=== PATIENT | female | born 1955 | race Caucasian/White ===

== ENCOUNTER 2020-04-25 12:12 | Outpatient (REF) | payer MEDICARE, SELFPAY ==
--- NOTE | ~2020-04-25 | MM_ITS ---
EXAMINATION: MM SCREENING DIGITAL BREAST TOMOSYNTHESIS, BILATERAL CLINICAL INFORMATION: Screening. Asymptomatic. The lifetime risk of breast cancer based on the Tyrer-Cuzick Model is 4%. COMPARISON: Mammography: 08/17/2018, 10/03/2015; outside imaging from [facility]: mammography 04/16/2017, targeted right breast ultrasound 04/16/2017. TECHNIQUE: Digital breast tomosynthesis is performed in both the craniocaudal and mediolateral oblique views along with computer-aided detection (CAD). Synthesized 2D images are generated from the tomosynthesis. FINDINGS: There are scattered areas of fibroglandular density (ACR BI-RADS breast composition Category b). There are no significant masses, abnormal calcifications, or other abnormalities. Parenchymal pattern is similar to prior studies. The axilla and skin contours are unremarkable. MM/MM tomosynthesis screening BI IMPRESSION: No significant changes from prior exams. ASSESSMENT: BI-RADS 1: Negative RECOMMENDATION: Routine annual mammography screening. This patient's information was entered into a reminder system with a target due date for their next mammogram.
== END 2020-04-25 12:13 | disposition home or self-care (01) ==
LOC: HO.MAMMO 12:12
PROVIDERS: Absent Provider Obstetrics & Gynecology; PCP Internal Medicine; Visit Provider Internal Medicine
DX: Z12.31 Encounter for screening mammogram for malignant neoplasm of breast (principal)
CPT/HCPCS: 77063; 77067

== ENCOUNTER 2020-10-05 06:09 | Outpatient (REF) | payer MEDICARE, OTHER, SELFPAY ==
[2020-10-05 07:52] LABS: MANUAL DIFF FLAG NO
[2020-10-05 08:00] LABS: Basophils Absolute Auto 0.1 X10*3/uL (0.0-0.2); Basophils Percent Auto 0.5 % (0-2); Eosinophils Absolute Auto 0.2 X10*3/uL (0.0-0.4); Eosinophils Percent Auto 1.6 % (0-4); Hematocrit 48.2 % (37-47); Hemoglobin 15.3 g/dl (12.0-16.0); Imm Gran Abs Auto 0.06 X10*3/uL (0.00-0.03); Imm Gran Pct Auto 0.5 % (0.0-0.4); Lymphocytes Absolute Auto 2.6 X10*3/uL (1.2-4.9); Lymphocytes Percent Auto 22.4 % (20-40); Mean Corpuscular HGB Conc 31.7 g/dl (31.0-35.0); Mean Corpuscular Hemoglobin 28.3 pg (27.0-33.0); Mean Corpuscular Volume 89.3 fL (80-98); Mean Platelet Volume 11.2 fL (9.4-12.3); Monocytes Absolute Auto 0.9 X10*3/uL (0.1-1.2); Monocytes Percent Auto 7.4 % (2-11); Neutrophils Absolute Auto 7.8 X10*3/uL (2.0-8.3); Neutrophils Percent Auto 67.6 % (45-73); Platelet Count 322 X10*3/uL (160-400); Red Cell Distribution Width 13.6 % (11.0-16.0); White Blood Count 11.6 X10*3/uL (4.8-10.8)
[2020-10-05 08:19] LABS: Estimated Average Glucose 183 mg/dL
[2020-10-05 08:32] LABS: Creatinine Urine 149.75 mg/dL; Microalbum/Creatinine Ratio Ur 30.7 ug/mg cr
[2020-10-05 08:34] LABS: Alanine Aminotransferase 63 U/L (0-31); Albumin Level 3.9 g/dL (3.5-5.0); Alkaline Phosphatase 104 U/L (39-117); Anion Gap 15 (12-20); Aspartate Amino Transferase 53 U/L (5-31); Bilirubin Total 0.4 mg/dL (0.0-1.0); Blood Urea Nitrogen 11 mg/dL (9-16); Calcium 9.6 mg/dL (8.4-10.2); Carbon Dioxide 29 mmol/L (22-29); Chloride 100 mmol/L (96-108); Cholesterol 132 mg/dL; Estimated Glomerular Filt Rate > 60; Glucose Fasting 140 mg/dL (60-99); HDL Cholesterol 26 mg/dL; LDL Cholesterol Calculated 78 mg/dl; Potassium 4.7 mmol/L (3.3-5.1); Sodium 139 mmol/L (135-145); Total Protein 7.5 g/dL (6.5-8.0); Triglycerides 142 mg/dL
[2020-10-05 08:58] LABS: Thyroid Stimulating Hormone 3.03 uIU/mL (0.32-4.0)
== END 2020-10-05 06:10 | disposition home or self-care (01) ==
LOC: HO.LAB 06:09
PROVIDERS: PCP Internal Medicine; Visit Provider Internal Medicine
DX: I10 Essential (primary) hypertension (principal); E78.00 Pure hypercholesterolemia, unspecified; K21.9 Gastro-esophageal reflux disease without esophagitis; R73.03 Prediabetes
CPT/HCPCS: 36415; 80053; 80061; 82043; 83036; 84443; 85025

== ENCOUNTER 2020-11-19 10:13 | Outpatient (REF) | payer MEDICARE, OTHER, SELFPAY ==
[2020-11-19 14:45] LABS: Estimated Average Glucose 154 mg/dL
[2020-11-19 15:03] LABS: Anion Gap 18 (12-20); Blood Urea Nitrogen 14 mg/dL (9-16); Calcium 9.5 mg/dL (8.4-10.2); Carbon Dioxide 21 mmol/L (22-29); Chloride 104 mmol/L (96-108); Estimated Glomerular Filt Rate > 60; Glucose Random 92 mg/dL (60-115); Potassium 4.7 mmol/L (3.3-5.1); Sodium 138 mmol/L (135-145)
== END 2020-11-19 10:14 | disposition home or self-care (01) ==
LOC: HO.10HDL 10:13
PROVIDERS: Visit Provider Internal Medicine
DX: E11.9 Type 2 diabetes mellitus without complications (principal)
CPT/HCPCS: 36415; 80048; 83036

== ENCOUNTER 2021-05-16 13:47 | Outpatient (REF) | payer MEDICARE, OTHER, SELFPAY ==
--- NOTE | ~2021-05-16 | MM_ITS ---
EXAMINATION: MM SCREENING DIGITAL BREAST TOMOSYNTHESIS, BILATERAL CLINICAL INFORMATION: Screening. Asymptomatic. The lifetime risk of breast cancer based on the Tyrer-Cuzick Model is 4%. COMPARISON: Mammography: 04/25/2020, 08/17/2018, 04/16/2017 TECHNIQUE: Digital breast tomosynthesis is performed in both the craniocaudal and mediolateral oblique views along with computer-aided detection (CAD). Synthesized 2D images are generated from the tomosynthesis. FINDINGS: There are scattered areas of fibroglandular density (ACR BI-RADS breast composition Category b). Parenchymal pattern is similar to prior studies. There are scattered minor asymmetries similar to prior exam. There is no developing density or interval architectural changes. No abnormal calcifications. The axilla and skin contours are unremarkable. MM/MM tomosynthesis screening BI IMPRESSION: No mammographic evidence of malignancy. ASSESSMENT: BI-RADS 1: Negative RECOMMENDATION: Routine annual mammography screening. This patient's information was entered into a reminder system with a target due date for their next mammogram.
== END 2021-05-16 13:48 | disposition home or self-care (01) ==
LOC: HO.MAMMO 13:47
PROVIDERS: PCP Obstetrics & Gynecology; Visit Provider Internal Medicine
DX: Z12.31 Encounter for screening mammogram for malignant neoplasm of breast (principal)
CPT/HCPCS: 77063; 77067

== ENCOUNTER 2021-09-09 11:58 | Outpatient (REF) | payer MEDICARE, OTHER, SELFPAY ==
[2021-09-09 12:54] LABS: Influenza A PCR NEGATIVE (Negative); Influenza B PCR NEGATIVE (Negative); Resp Syncy Virus RNA Qual PCR NEGATIVE (Negative); SARS COV2 PCR INHOUSE NEGATIVE (Negative)
== END 2021-09-09 11:59 | disposition home or self-care (01) ==
LOC: HO.LNP 11:58
PROVIDERS: Visit Provider Internal Medicine
DX: Z20.822 Contact with and (suspected) exposure to COVID-19 (principal); R05.9 Cough, unspecified
CPT/HCPCS: 0241U

== ENCOUNTER 2021-09-10 10:02 | Outpatient (REF) | payer MEDICARE, OTHER, SELFPAY ==
--- NOTE | ~2021-09-10 | XR_ITS ---
EXAMINATION: XR CHEST CLINICAL INFORMATION: Cough and hypertension. Rule out bronchiectasis COMPARISON: Previous chest x-ray December [address] April 2019 TECHNIQUE: 2 views of the chest were obtained. FINDINGS: The cardiac and mediastinal contours are stable. The lungs are clear. There is no pleural effusion or pneumothorax. Bony structures are unremarkable. XR/XR chest 2V IMPRESSION: No evidence for acute disease in the chest.
[2021-09-10 10:56] LABS: Estimated Average Glucose 151 mg/dL; Hemoglobin A1c % 6.9 %
[2021-09-10 11:56] LABS: Alanine Aminotransferase 45 U/L (0-31); Albumin Level 3.9 g/dL (3.5-5.0); Alkaline Phosphatase 87 U/L (39-117); Anion Gap 12 (12-20); Aspartate Amino Transferase 36 U/L (5-31); Bilirubin Total 0.2 mg/dL (0.0-1.0); Blood Urea Nitrogen 13 mg/dL (9-16); Calcium 9.3 mg/dL (8.4-10.2); Carbon Dioxide 28 mmol/L (22-29); Chloride 102 mmol/L (96-108); Estimated Glomerular Filt Rate > 60; Glucose Random 162 mg/dL (60-115); Potassium 4.7 mmol/L (3.3-5.1); Sodium 137 mmol/L (135-145); Total Protein 7.3 g/dL (6.5-8.0)
== END 2021-09-10 10:03 | disposition home or self-care (01) ==
LOC: HO.10HDL 10:02
PROVIDERS: Visit Provider Internal Medicine
DX: R05.9 Cough, unspecified (principal); I10 Essential (primary) hypertension; E11.9 Type 2 diabetes mellitus without complications; K21.9 Gastro-esophageal reflux disease without esophagitis
CPT/HCPCS: 36415; 71046; 80053; 83036

== ENCOUNTER 2021-10-29 08:06 | Day surgery (SDC) | payer MEDICARE, OTHER, SELFPAY ==
[2021-09-05 09:08] VITALS: BMI 38.6
[2021-10-29 08:23] VITALS: BP 162/78; PULSE 66; RESP 19; TEMP 36.6; O2SAT 96
[2021-10-29 08:32] LABS: Glucose, Whole Blood 122 mg/dL (60-115)
[2021-10-29] MEDS: Lactated Ringers 1,000 ML 50 ML IVCONT (08:35)
--- NOTE | 2021-10-29 09:03 | HO.ANESPROP2 ---
[facility] Past Medical History Medical History (Updated 10/29/21 @ 08:43 by Dang Evans RN) Blood cholesterol increased compared with prior measurement Diabetes HTN (hypertension) HTN (hypertension) Family History Family history of problems with anesthesia: No Surgical History Surgical History (Updated 10/29/21 @ 08:41 by Dang Evans RN) History of pubovaginal sling Hx of colonoscopy Hx of wisdom tooth extraction History of Problems with Anesthesia: No Social History Social History Patient Tobacco Use Status: Never used Tobacco Are you DNR?: No Advance Directives: No Advance Directives Information Provided: Yes Recently lost weight without trying: No Nutrition Risks: No Nutritional Risk Meds Allergies Allergy/AdvReac Type Severity Reaction Status Date / Time levofloxacin [LEVOFLOXACIN] Allergy Severe DIFFICULTY Verified 10/29/21 06:27 BREATHING Active Medications: Current Medications Lactated Ringer's (Lr) 1,000 mls @ 50 mls/hr IVCONT .Q20H GIULIANO Last Admin: 10/29/21 08:35 Dose: 50 mls/hr Home Medications Medication Instructions Recorded Confirmed Last Taken Type metformin 500 mg tablet,extended 1 tab PO DAILY 10/29/21 10/29/21 10/28/21 History release 24 hr metoprolol succinate 25 mg 1 tab PO DAILY 10/29/21 10/29/21 10/29/21 History tablet,extended release 24 hr omeprazole 20 mg capsule,delayed 1 cap PO DAILY 10/29/21 10/29/21 10/28/21 History release simvastatin 20 mg tablet 1 tab PO BEDTIME 10/29/21 10/29/21 10/28/21 History Exam Exam Date and Time: October 29, 2021 0903 Height,Weight and Vital Signs: Height 5 ft 5 in Weight 105.233 kg Last Vital Signs Temp 98 F 10/29/21 08:23 Pulse 66 10/29/21 08:23 Resp 19 10/29/21 08:23 BP 162/78 H 10/29/21 08:23 Pulse Ox 96 10/29/21 08:23 O2 Del Method 10/29/21 08:23 Pertinent Lab Results Pertinent Lab Results: Laboratory Tests 10/29/21 08:28 POC Glucose 122 H Airway Mallampati Class: III TM Dist: >3cm Neck ROM: Full Assessment and Plan Assessment Anesthesia Assessment: Anesthesia Plan Discussed and Chart Reviewed Final Anesthetic Review Family History of Problems with Anesthesia: No History of Problems with Anesthesia: No NPO: Yes ASA Class: III Final Preanesthetic Review: No Changes in Pt Med Stat, Meds/Allgs Chart Reviewed, Consent Obtained/Reviewed and Anes Risks/Benef Reviewed Patient Risk: Intermediate Procedure Risk: Low Anesthetic Plan Anesthetic Plan: MAC: Disposition: Standard PACU
--- NOTE | 2021-10-29 09:27 | P.HPSUR_ITS ---
Pre-Procedural Eval Section A Date of Service: 10/29/21 Section B Chief Complaint: screening Details of Present Illness: see H&P no changes Relevant Family History (Specify if Yes): No Relevant Social History: None Present Medications: see Short Stay Collaborative assessment Medical History: No relevant PMH History of Previous Operations: No relevant previous surgery Allergies: Allergies Allergy/AdvReac Type Severity Reaction Status Date / Time levofloxacin [LEVOFLOXACIN] Allergy Severe DIFFICULTY Verified 10/29/21 06:27 BREATHING Review of Systems Sugical H&P ROS: Negative: Constitution, Cardiovascular, Respiratory, Neurol ogical, Psychiatric, Hem-Onc, Allergic/Immunologic, Gastrointestinal, Genitourinary, Musculoskeletal, Integumentary, Endocrine and Eyes/Ears/Nose/Throat Exam Surgical H&P Exam: Normal: HEENT, Normal: Heart, Normal: Lungs, Normal: Extremities, Normal: Abdomen, Normal: Skin and Normal: Neurological Plan Diagnosis/Plan: Unchanged I have reviewed the history and physical and performed a pertinent physical examination on my patient. No changes have occurred unless specified.
--- NOTE | 2021-10-29 09:57 | P.BOP_ITS ---
Brief Operative Note Date of Service: 10/29/21 Pre-op diagnosis: screening Post-op diagnosis: same Surgeon: Kevyn Garvey Anesthesia: MAC Was an Development Coordinator used for this Procedure?: No Estimated blood loss (mL): 0 Pathology: none sent Condition: stable Disposition: PACU
[2021-10-29 10:05] VITALS: BP 140/65; PULSE 73; RESP 16; TEMP 36.2; O2SAT 96
--- NOTE | 2021-10-29 10:09 | OP_ITS ---
SURGEON: Kevyn Garvey MD INDICATIONS: Colon cancer screening and prior history of adenomatous colon polyps. PREOPERATIVE DIAGNOSIS: POSTOPERATIVE DIAGNOSIS: PROCEDURE PERFORMED: Colonoscopy to terminal ileum. ESTIMATED BLOOD LOSS: COMPLICATIONS: ANESTHESIA: ASSISTANTS: SPECIMENS: MEDICATIONS: Monitored anesthesia care. DESCRIPTION OF PROCEDURE: History and physical performed. The risks and benefits of the procedure were explained to the patient. Informed consent was obtained. The patient was placed in the left lateral decubitus position. A digital rectal exam was performed and was found to be normal. The Olympus pediatric video colonoscope was introduced into the rectum and advanced to the cecum without difficulty. The cecum was identified by transillumination, palpation, and identification of ileocecal valve. Examination was performed. The scope was removed. She tolerated the procedure well and was returned to recovery area in stable condition. FINDINGS: The terminal ileum was examined and appeared normal. The visualized colonic mucosa was within normal limits. There was some stool coating the mucosa, which was present mainly in the descending and sigmoid colon. This limited the sensitivity examination for detection of small polyps. It was washed and suctioned as best possible. No polyps were identified. There was a single diverticulum seen in the right colon. Retroflexed examination was normal. IMPRESSION: Negative screening colonoscopy. RECOMMENDATIONS: 1. Follow up as needed. 2. Repeat colonoscopy is recommended in 10 years for average risk individuals. MD ENRIQUE Otero/THOMAS / [id number]
[2021-10-29 10:10] VITALS: BP 129/75; PULSE 73; RESP 18; O2SAT 96
[2021-10-29 10:21] VITALS: BP 142/76; PULSE 78; RESP 16; TEMP 36.9; O2SAT 96
== END 2021-10-29 10:52 | disposition home or self-care (01) ==
PROVIDERS: PCP Obstetrics & Gynecology; Visit Provider Internal Medicine Gastroenterology
PROC: 0DJD8ZZ Inspection of Lower Intestinal Tract, Via Natural or Artificial Opening Endoscopic (ICD-10-PCS; CPT 45378; principal; 2021-10-29 09:20)
DX: Z12.11 Encounter for screening for malignant neoplasm of colon (principal); Z86.010 Personal history of colon polyps; K57.30 Diverticulosis of large intestine without perforation or abscess without bleeding; K21.9 Gastro-esophageal reflux disease without esophagitis; I10 Essential (primary) hypertension; E78.00 Pure hypercholesterolemia, unspecified; E11.9 Type 2 diabetes mellitus without complications; Z79.84 Long term (current) use of oral hypoglycemic drugs; Z79.899 Other long term (current) drug therapy; Z88.1 Allergy status to other antibiotic agents
CPT/HCPCS: G0105; 82947

== ENCOUNTER 2022-04-03 14:54 | Outpatient (REF) | payer MEDICARE, SELFPAY ==
--- NOTE | ~2022-04-03 | XR_ITS ---
EXAMINATION: XR CHEST 2 VIEWS CLINICAL INFORMATION: Cough. COMPARISON: Chest radiographs dated 09/10/2021. TECHNIQUE: Frontal and lateral views of the chest were obtained. FINDINGS: The heart, great vessels, pulmonary vasculature and mediastinum are normal. The lungs show no focal infiltrate, effusion or pneumothorax. There is no acute osseous abnormality. XR/XR chest 2V IMPRESSION: No active cardiopulmonary disease.
== END 2022-04-03 14:55 | disposition home or self-care (01) ==
LOC: HO.XRAY 14:54
PROVIDERS: PCP Internal Medicine; Visit Provider Internal Medicine
DX: R05.9 Cough, unspecified (principal)
CPT/HCPCS: 71046

== ENCOUNTER 2022-05-22 13:26 | Outpatient (REF) | payer MEDICARE, SELFPAY ==
--- NOTE | ~2022-05-22 | MM_ITS ---
EXAMINATION: MM SCREENING DIGITAL BREAST TOMOSYNTHESIS, BILATERAL CLINICAL INFORMATION: Screening. Asymptomatic. The lifetime risk of breast cancer based on the Tyrer-Cuzick Model is 4.3%. COMPARISON: Mammography: May 16, 2021 and studies dating back to October 03, 2015 TECHNIQUE: Digital breast tomosynthesis is performed in both the craniocaudal and mediolateral oblique views along with computer-aided detection (CAD). Synthesized 2D images are generated from the tomosynthesis. FINDINGS: There are scattered areas of fibroglandular density (ACR BI-RADS breast composition Category b). There are no significant masses, abnormal calcifications, or other abnormalities. MM/MM tomosynthesis screening BI IMPRESSION: No significant changes ASSESSMENT: BI-RADS 1: Negative RECOMMENDATION: Routine annual mammography screening. This patient's information was entered into a reminder system with a target due date for their next mammogram.
== END 2022-05-22 13:27 | disposition home or self-care (01) ==
LOC: HO.MAMMO 13:26
PROVIDERS: PCP Internal Medicine; Visit Provider Obstetrics & Gynecology
DX: Z12.31 Encounter for screening mammogram for malignant neoplasm of breast (principal)
CPT/HCPCS: 77063; 77067

== ENCOUNTER 2022-09-13 07:06 | Outpatient (REF) | payer MEDICARE, OTHER, SELFPAY ==
[2022-09-13 07:22] LABS: MANUAL DIFF FLAG NO
[2022-09-13 07:43] LABS: Basophils Absolute Auto 0.1 X10*3/uL (0.0-0.2); Basophils Percent Auto 0.5 % (0-2); Eosinophils Absolute Auto 0.2 X10*3/uL (0.0-0.4); Eosinophils Percent Auto 1.7 % (0-4); Hematocrit 47.7 % (37.0-47.0); Hemoglobin 15.1 g/dl (12.0-16.0); Imm Gran Pct Auto 0.7 % (0.0-0.4); Lymphocytes Absolute Auto 4.4 X10*3/uL (1.2-4.9); Lymphocytes Percent Auto 30.6 % (20-40); Mean Corpuscular HGB Conc 31.7 g/dl (31.0-35.0); Mean Corpuscular Hemoglobin 28.4 pg (27.0-33.0); Mean Corpuscular Volume 89.7 fL (80.0-98.0); Mean Platelet Volume 11.1 fL (9.4-12.3); Monocytes Percent Auto 7.1 % (2-11); Neutrophils Absolute Auto 8.6 x10*3/uL (2.0-8.3); Neutrophils Percent Auto 59.4 % (45-73); Platelet Count 291 X10*3/uL (160-400); Red Blood Count 5.32 X10*6/uL (4.20-5.50); White Blood Count 14.5 X10*3/uL (4.8-10.8)
[2022-09-13 07:50] LABS: Estimated Average Glucose 166 mg/dL; Hemoglobin A1c % 7.4 %
[2022-09-13 08:06] LABS: Creatinine Urine 121.92 mg/dL; Microalbum/Creatinine Ratio Ur 61.5 ug/mg cr
[2022-09-13 08:09] LABS: Alanine Aminotransferase 41 U/L (0-31); Albumin Level 3.9 g/dL (3.5-5.0); Alkaline Phosphatase 76 U/L (39-117); Anion Gap 13 (12-20); Aspartate Amino Transferase 32 U/L (5-31); Bilirubin Total 0.3 mg/dL (0.0-1.0); Blood Urea Nitrogen 15 mg/dL (9-16); Calcium 10.1 mg/dL (8.4-10.2); Carbon Dioxide 29 mmol/L (22-29); Chloride 103 mmol/L (96-108); Cholesterol 141 mg/dL; Estimated Glomerular Filt Rate > 60; Glucose Random 143 mg/dL (60-115); HDL Cholesterol 35 mg/dL; LDL Cholesterol Calculated 77 mg/dl; Potassium 4.2 mmol/L (3.3-5.1); Sodium 141 mmol/L (135-145); Total Protein 7.3 g/dL (6.5-8.0); Triglycerides 148 mg/dL
== END 2022-09-13 07:07 | disposition home or self-care (01) ==
LOC: HO.LAB 07:06
PROVIDERS: PCP Internal Medicine; Visit Provider Internal Medicine
DX: I10 Essential (primary) hypertension (principal); E11.9 Type 2 diabetes mellitus without complications; E78.00 Pure hypercholesterolemia, unspecified
CPT/HCPCS: 36415; 80053; 80061; 82043; 83036; 85025

== ENCOUNTER 2023-05-12 12:50 | Outpatient (REF) | payer MEDICARE, OTHER, SELFPAY ==
--- NOTE | ~2023-05-12 | US_ITS ---
EXAMINATION: MM DIAGNOSTIC DIGITAL BREAST TOMOSYNTHESIS, BILATERAL US BREAST LIMITED, LEFT MAMMOGRAPHY: CLINICAL INFORMATION: Patient due for bilateral screening. Patient also complaining of 1 cm palpable breast lump far upper outer quadrant right breast, likely a skin lesion such as a sebaceous cyst. Small black dot on skin over lesion. COMPARISON: Mammography: 05/22/2022, 05/16/2021, and studies dating back to 10/03/2015. TECHNIQUE: Digital breast tomosynthesis is performed in both the craniocaudal and mediolateral oblique views along with computer-aided detection (CAD). Synthesized 2D images are generated from the tomosynthesis. FINDINGS: There are scattered areas of fibroglandular density (ACR BI-RADS breast composition Category b). There are no suspicious masses, suspicious grouped calcifications, or areas of architectural distortion in either breast. The parenchymal pattern is stable from prior exams, with scattered minor asymmetries similar to priors. There are stable nonenlarged axillary tail lymph nodes in both breasts. On the exaggerated CC view, there is a oval small mass abutting the inferior skin laterally, with abutting the BB marker placed by the technologist. This nodule measures 1.0 cm in diameter with a black dot on the skin overlying. This will be evaluated by ultrasound and is likely a skin lesion. ULTRASOUND: CLINICAL INFORMATION: Evaluate palpable probable skin lesion far upper outer quadrant right breast. COMPARISON: No relevant prior. TECHNIQUE: Targeted sonographic evaluation was performed using a high frequency linear transducer. Attention to the palpable focus in the far outer upper quadrant right breast was given. Selected archived documentation. FINDINGS: LEFT BREAST: In the region of palpable concern, 8:00 axis right breast, 12 cm from the nipple, there is a dermal-based hypoechoic lesion measuring 7 x 5 x 6 mm, with low-level internal echoes, a subtle hypoechoic linear tract through the skin, and good through transmission with a mildly hyperechoic surrounding fat. This is consistent with a sebaceous cyst, and mildly increased surrounding Doppler flow may indicate this is superinfected. This finding is benign. This should be managed clinically/surgically. US/US breast RT limited mamm only IMPRESSION: There are no findings in either breast suspicious for malignancy. Palpable abnormality in the 8:00 axis, 12 cm from the nipple, is consistent with a dermal lesion (sebaceous cyst) measuring 7 x 5 x 6 mm, possibly superinfected. This finding is benign and should be managed clinically/surgically. OVERALL ASSESSMENT: Mammography: BI-RADS 2 - Benign Findings Ultrasound: BI-RADS 2 - Benign Findings RECOMMENDATION: 1. Patient should be managed based on the clinical impression. 2. Otherwise, routine annual screening mammography. This patient's information was entered into a reminder system with a target due date for their next mammogram.
== END 2023-05-12 12:51 | disposition home or self-care (01) ==
LOC: HO.MAMMO 12:50
PROVIDERS: PCP Internal Medicine; Visit Provider Internal Medicine
DX: N63.15 Unspecified lump in the right breast, overlapping quadrants (principal)
CPT/HCPCS: 76642; 77062; 77066

== ENCOUNTER → 2023-05-12 13:00 | Outpatient (BNV) | payer MEDICARE, OTHER, SELFPAY | PROVIDERS: PCP Internal Medicine; Visit Provider Radiology Diagnostic Radiology | DX: N60.02 Solitary cyst of left breast (principal) | CPT/HCPCS: 76642; 77066; G0279 ==

== ENCOUNTER 2023-06-23 09:59 | Outpatient (REF) | payer MEDICARE, OTHER, SELFPAY ==
--- NOTE | ~2023-06-23 | XR_ITS ---
EXAMINATION: XR SINUSES CLINICAL INFORMATION: Sinus pressure for 3 weeks of constant headache, difficult to position due to body habitus. COMPARISON: None available. TECHNIQUE: 4 views of the sinuses. Technologist states difficult positioning due to body habitus. FINDINGS: The frontal sinuses are hypoplastic, particularly on the left. Evaluation is severely limited due to patient positioning. No gross air-fluid levels appreciated in the maxillary sinuses on limited images. 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 Evaluation is severely limited due to patient positioning. CT scan is strongly recommended as CT scan is much more sensitive for intracranial pathology such as sinus pathology.
[2023-06-23 11:00] LABS: MANUAL DIFF FLAG NO
[2023-06-23 11:17] LABS: Basophils Absolute Auto 0.1 X10*3/uL (0.0-0.2); Basophils Percent Auto 0.7 % (0-2); Eosinophils Absolute Auto 0.2 X10*3/uL (0.0-0.4); Eosinophils Percent Auto 1.6 % (0-4); Hematocrit 48.3 % (37.0-47.0); Hemoglobin 15.9 g/dl (12.0-16.0); Imm Gran Abs Auto 0.05 X10*3/uL (0.00-0.03); Imm Gran Pct Auto 0.4 % (0.0-0.4); Lymphocytes Absolute Auto 3.1 X10*3/uL (1.2-4.9); Lymphocytes Percent Auto 23.8 % (20-40); Mean Corpuscular HGB Conc 32.9 g/dl (31.0-35.0); Mean Corpuscular Hemoglobin 28.5 pg (27.0-33.0); Mean Corpuscular Volume 86.6 fL (80.0-98.0); Mean Platelet Volume 10.8 fL (9.4-12.3); Monocytes Absolute Auto 0.8 X10*3/uL (0.1-1.2); Monocytes Percent Auto 6.1 % (2-11); Neutrophils Absolute Auto 8.9 x10*3/uL (2.0-8.3); Neutrophils Percent Auto 67.4 % (45-73); Platelet Count 323 X10*3/uL (160-400); Red Blood Count 5.58 X10*6/uL (4.20-5.50); Red Cell Distribution Width 13.8 % (11.0-16.0); White Blood Count 13.2 X10*3/uL (4.8-10.8)
[2023-06-23 11:30] LABS: Estimated Average Glucose 171 mg/dL; Hemoglobin A1c % 7.6 % (<6.0)
[2023-06-23 11:53] LABS: Alanine Aminotransferase 42 U/L (0-31); Albumin Level 3.9 g/dL (3.5-5.0); Alkaline Phosphatase 84 U/L (39-117); Anion Gap 13 (12-20); Aspartate Amino Transferase 33 U/L (5-31); Bilirubin Total 0.3 mg/dL (0.0-1.0); Blood Urea Nitrogen 15 mg/dL (9-16); C Reactive Protein 1.14 mg/dL (< or = 0.50); Calcium 10.2 mg/dL (8.4-10.2); Carbon Dioxide 29 mmol/L (22-29); Chloride 101 mmol/L (96-108); Estimated Glomerular Filt Rate > 60; Glucose Random 146 mg/dL (60-115); Potassium 4.5 mmol/L (3.3-5.1); Sodium 138 mmol/L (135-145); Total Protein 7.8 g/dL (6.5-8.0)
== END 2023-06-23 10:00 | disposition home or self-care (01) ==
LOC: HO.10HDL 09:59
PROVIDERS: Visit Provider Internal Medicine
DX: I10 Essential (primary) hypertension (principal); E11.9 Type 2 diabetes mellitus without complications; J34.89 Other specified disorders of nose and nasal sinuses
CPT/HCPCS: 36415; 70220; 80053; 83036; 85025; 86140

== ENCOUNTER 2023-06-26 07:57 | Outpatient (REF) | payer MEDICARE, OTHER, SELFPAY ==
--- NOTE | ~2023-06-26 | CT_ITS ---
EXAMINATION: CT SINUS WITHOUT CONTRAST CLINICAL INFORMATION: Sinus pressure for 3 weeks of constant headache COMPARISON: None TECHNIQUE: Multidetector helical imaging was performed in the axial plane using landmarks protocol with generation of coronal and sagittal reformatted images. This CT examination was performed using dose optimization techniques as appropriate, variously including the following: *Automated exposure control *Adjustment of mA and/or kV according to patient size (this includes techniques or standardized protocols for targeted exams where dose is matched to indication/reason for exam; i.e. extremities or head) *Use of iterative reconstruction technique DLP: 111.76 mGy-cm FINDINGS: FRONTAL SINUSES AND DRAINAGE PATHWAYS: The frontal sinuses are clear. The left frontal sinus is hypoplastic. The frontal recesses are patent. MAXILLARY SINUSES AND DRAINAGE PATHWAYS: The maxillary sinuses are clear. The maxillary ostia and infundibula are patent. ETHMOID SINUSES: The ethmoid air cells are clear. The ethmoid roofs appear intact and are symmetric. SPHENOID SINUS AND DRAINAGE PATHWAYS: The sphenoid sinus is clear.. The sphenoid ostia and sphenoethmoidal recesses are patent. NASAL PASSAGE: The nasal passages are clear. The osseous nasal septum remains midline. ADDITIONAL RELEVANT FINDINGS: The lamina papyracea are intact. No demonstrated abnormalities of the orbits. The carotid canals are normally covered by bone. No significant maxillary periapical disease. The temporomandibular joints are normal. The mastoid air cells and middle ear cavities are well aerated. The partially visualized intracranial compartment demonstrates a predominantly hypodense left hemispheric subdural collection measuring up to 1.7 cm with some acute hyperdense blood products, compatible with acute on chronic subdural hematoma. There is associated mass effect with up to 8 mm rightward midline shift. CT/CT sinus wo IV con IMPRESSION: 1. The intracranial compartment is only partially imaged on this examination. 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 2. No active sinus disease. Above impression was communicated to Dr Nilson Givens on 06/29/2023 8:51 PM
== END 2023-06-26 07:58 | disposition home or self-care (01) ==
LOC: HO.CT 07:57
PROVIDERS: PCP Internal Medicine; Visit Provider Internal Medicine
DX: R93.89 Abnormal findings on diagnostic imaging of other specified body structures (principal)
CPT/HCPCS: 70486

== ENCOUNTER 2023-06-29 19:08 | Emergency (ER) | payer MEDICARE, OTHER, SELFPAY ==
[2023-06-29] VITALS (22 sets, daily range): BP systolic 130–196; BP diastolic 53–75; PULSE 41–56; RESP 10–18; TEMP 36.4–36.9; O2SAT 91–97; BMI 43.6
--- NOTE | ~2023-06-29 | CT_ITS ---
EXAMINATION: CT head/brain wo IV con CLINICAL INFORMATION: Reason for Exam severe headache COMPARISON: Sinus CT 06/26/2023 TECHNIQUE: Contiguous axial imaging was performed from the skull base to vertex without intravenous contrast. Sagittal and coronal reformatted images were obtained. This CT examination was performed using dose optimization techniques as appropriate, variously including the following: * Automated exposure control * Adjustment of mA and/or kV according to patient size (this includes techniques or standardized protocols for targeted exams where dose is matched to indication/reason for exam; i.e. extremities or head) Use of iterative reconstruction technique DLP: 768 mGy-cm FINDINGS: No acute osseous or soft tissue abnormality. The mastoid air cells and visualized portions of the paranasal sinuses are well aerated. There is an acute on chronic left holohemispheric subdural hematoma measuring up to 1.7 cm in thickness. Resultant mass effect with partial effacement of the left lateral ventricle and approximately 8-9 mm rightward midline shift and medialization of the left uncus. Limited comparison with CT of the sinuses dated 06/26/2023 which also demonstrated this abnormality due to differences in imaging technique as well as incomplete imaging of the head on the prior examination. There is no evidence of territorial infarction. Westfall to white matter differentiation is well preserved No hydrocephalus. No significant volume loss. Patchy periventricular and deep white matter hypoattenuation is consistent with mild small vessel ischemic changes. CT/CT head/brain wo IV con IMPRESSION: Acute on chronic left holohemispheric subdural hematoma measuring up to 1.7 cm with resultant rightward midline shift of 8 to 9 mm and medialization of the left uncus. This finding was present on CT of the sinuses from 06/26/2023 but comparison of hematoma size, extent of acute blood products, and mass effect is limited as the intracranial contents were only partially imaged on the prior exam. Above impression was communicated to Dr. Tami Francisco on 06/29/2023 9:18 PM
--- NOTE | 2023-06-29 19:52 | ED.GENADULT ---
HPI - General Adult General Chief complaint: Altered Mental Status Stated complaint: Severe headaches Time Seen by Provider: 06/29/23 20:41 Source: patient and family Mode of arrival: ambulatory Limitations: no limitations History of Present Illness HPI narrative: Patient comes to the emergency room accompanied by her son and . According to the patient's family and patient, patient has been having a headache for the last 3 weeks but got much worse over the last 3-4 days. According to the family, she seems a bit more confused, like leaving the stove on. Also, the family reported that when they spoke to her over the phone, she seemed confused. Patient went to see her primary care physician 3 days ago, CT scan was done due to suspicion of sinusitis. Today, patient's primary care physician received a phone call regarding the patient's CT scan which showed blood in the brain. According to the patient, she has not taking aspirin or any blood thinners. However, for the last 3 weeks, patient has been taking a large amount of ibuprofen secondary to the headache. Patient has not had any relief. Related Data Home Medications ?Medication ?Instructions ?Recorded ?Confirmed metformin 500 mg tablet,extended 1 tab PO DAILY 10/29/21 10/29/21 release 24 hr metoprolol succinate 25 mg 1 tab PO DAILY 10/29/21 10/29/21 tablet,extended release 24 hr omeprazole 20 mg capsule,delayed 1 cap PO DAILY 10/29/21 10/29/21 release simvastatin 20 mg tablet 1 tab PO BEDTIME 10/29/21 10/29/21 Allergies Allergy/AdvReac Type Severity Reaction Status Date / Time levofloxacin [LEVOFLOXACIN] Allergy Severe DIFFICULTY Verified 06/29/23 19:58 BREATHING Review of Systems Review of Systems: Constitutional : No Weight loss, No Fever, No Chills, No Night Sweats, No Fatigue, No Malaise ENT/Mouth : No Hearing loss, No Ear Pain, No Nasal Congestion, No Sinus Pain, No Hoarseness, No sore throat, No Rhinorrhea, No Swallowing Difficulty Eyes: No Eye Pain, No Swelling, No Redness, No Foreign Body, No Discharge, No Vision Changes Cardiovascular : No Chest Pain, No SOB, No Dyspnea on Exertion, No Orthopnea, No Edema, No Palpitations Respiratory : No Cough, No Sputum, No Wheezing, No Smoke Exposure, No Dyspnea Gastrointestinal : No Nausea, No Vomiting, No Diarrhea, No Constipation, No abdominal Pain, No Hematochezia, No Melena Genitourinary : no irregular bleeding, No Dysuria, No Urinary Frequency, No Hematuria, No Urinary Incontinence, No Urgency, No Flank Pain, No Urinary Flow Changes, No Hesitancy Musculoskeletal : No joint pain, No Myalgias, No Joint Swelling Skin : No Skin Lesions, No rash Neuro : No Weakness, No Numbness, No Paresthesias, No Loss of Consciousness, complaining of headache for 3 weeks, getting worse over last 3-4 days Psych : No Anxiety/Panic, No Depression, No SI/HI/AH/VH, No Social Issues, Heme/Lymph: No Bruising, No Bleeding,No Lymphadenopathy Endocrine : No Polyuria, No Polydipsia, No Temperature Intolerance PMFSH Past Medical History Medical History Blood cholesterol increased compared with prior measurement HTN (hypertension) HTN (hypertension) Diabetes Surgical History Hx of wisdom tooth extraction History of pubovaginal sling Hx of colonoscopy Social History Social History Patient Tobacco Use Status: Never used Tobacco Smoked in Last 30 Days: No Use of substances other than those prescribed or required for medical reasons: No Advance Directives: No Advance Directives Information Provided: No Do you have a plan to hurt others: No Plan Physical Exam ED Vital Signs: Vital Signs - 24 hr 06/29/23 19:52 06/29/23 20:45 06/29/23 21:25 Temperature 98.5 F 97.8 F 97.7 F Pulse Rate 50 46 L 47 L Respiratory Rate 18 15 16 Blood Pressure 153/75 H 191/74 H 196/72 H Pulse Oximetry 95 95 95 Oxygen Delivery Method Room Air Room Air Room Air Oxygen Flow Rate 06/29/23 21:30 06/29/23 21:32 06/29/23 21:43 Temperature 97.5 F Pulse Rate 50 45 L Respiratory Rate 15 15 13 Blood Pressure 162/63 H 159/65 H Pulse Oximetry 95 91 L Oxygen Delivery Method Room Air Room Air Oxygen Flow Rate 06/29/23 21:52 06/29/23 21:59 06/29/23 22:06 Temperature Pulse Rate 43 L 43 L 46 L Respiratory Rate 10 L 15 17 Blood Pressure 153/63 H 153/66 H 134/66 Pulse Oximetry 93 96 97 Oxygen Delivery Method Room Air Nasal Cannula Nasal Cannula Oxygen Flow Rate 2 2 06/29/23 22:13 06/29/23 22:17 06/29/23 22:20 Temperature Pulse Rate 41 L 44 L 46 L Respiratory Rate 15 12 16 Blood Pressure 155/62 H 140/62 H 152/66 H Pulse Oximetry 97 97 95 Oxygen Delivery Method Nasal Cannula Nasal Cannula Nasal Cannula Oxygen Flow Rate 2 2 2 06/29/23 22:21 06/29/23 22:34 06/29/23 22:42 Temperature Pulse Rate 44 L 52 51 Respiratory Rate 18 11 L Blood Pressure 140/62 H 154/60 H 146/54 H Pulse Oximetry 96 96 Oxygen Delivery Method Nasal Cannula Nasal Cannula Oxygen Flow Rate 2 2 06/29/23 22:46 06/29/23 22:49 06/29/23 22:51 Temperature Pulse Rate 50 54 56 Respiratory Rate 16 13 Blood Pressure 137/62 147/63 H 147/63 H Pulse Oximetry 96 97 Oxygen Delivery Method Nasal Cannula Nasal Cannula Oxygen Flow Rate 2 2 06/29/23 22:54 06/29/23 23:08 06/29/23 23:28 Temperature 97.7 F Pulse Rate 53 54 55 Respiratory Rate 11 L 18 17 Blood Pressure 142/61 H 138/53 L 139/59 L Pulse Oximetry 96 96 96 Oxygen Delivery Method Nasal Cannula Room Air Room Air Oxygen Flow Rate 2 06/29/23 23:45 Temperature Pulse Rate 50 Respiratory Rate 15 Blood Pressure 130/60 Pulse Oximetry 93 Oxygen Delivery Method Room Air Oxygen Flow Rate BMI result Body Mass Index 43.6 Const Other: Appearance: Alert. Oriented X3. No acute distress. Eyes: Pupils equal, round and reactive to light. ENT: Pharynx normal. Neck: Normal inspection. Neck supple. No lymph nodes noted. No crepitus CVS: Normal heart rate and rhythm. Pulses normal. Normal S1 and S2 Respiratory: No respiratory distress. Breath sounds normal. No Wheezing. No rales Abdomen: Soft and nontender. No rigidity. No distention. Skin: Skin warm and dry. Normal skin color. Normal skin turgor. Extremities: No lower extremity edema. No Lacerations. No Rash Neuro: Oriented X 3. No motor deficit. No sensory deficit. Moving all extremities. No slurred speech. CN 2 through 12 grossly intact. Patient is speaking in full sentences, does not seem to be significantly confused at this time. Psych: calm, cooperative, normal affect Course Course Course Narrative: This is an RME: Additional HPI, ROS, PE not included below will be deferred to primary provider. 67 yo f presents with severe headaches X 3 weeks. Memory loss began on Thursday. Denies falls or head trauma. -I received a phone call from Dr. Givens, patient's PCP regarding the CT scan of the sinuses. At the same time, patient's head CT was being read by Radiology. -patient that family have been informed of the findings. Patient and family agreeable to transfer. Medications Administered Generic Name Dose Route Start Last Admin Trade Name Freq PRN Reason Stop Dose Admin Nicardipine HCl 25 mg/ Sodium 260 mls @ 0 mls/hr 06/29/23 22:00 06/29/23 22:51 Chloride IVCONT 0 mg/hr .Q0M GIULIANO 0 mls/hr Titration Protocol Per Protocol Discontinued Medications Generic Name Dose Route Start Last Admin Trade Name Freq PRN Reason Stop Dose Admin Dexamethasone Sodium Phosphate 10 mg 06/29/23 21:20 06/29/23 21:32 Dexamethasone Sod Phosphate 10 Mg/Ml Vial IVPUSH 06/29/23 21:21 10 mg ONCE ONE Administration Tranexamic Acid 1,000 mg/ 60 mls @ 360 mls/hr 06/29/23 22:12 06/29/23 22:40 Sodium Chloride IV 06/29/23 22:21 Infused .Q10M ONE Infusion Labetalol HCl 5 mg 06/29/23 21:52 06/29/23 21:58 Labetalol Hcl 100 Mg/20 Ml Vial IVPUSH 06/29/23 21:53 Not Given ONCE ONE Morphine Sulfate 4 mg 06/29/23 21:21 06/29/23 21:32 Morphine Sulfate 4 Mg/Ml Cartridge IVPUSH 06/29/23 21:22 4 mg ONCE ONE Administration Protocol Ondansetron HCl 4 mg 06/29/23 21:21 06/29/23 21:32 Ondansetron Hcl 4 Mg/2 Ml Vial IVPUSH 06/29/23 21:22 4 mg ONCE ONE Administration Medical Decision Making Medical Decision Making MDM Narrative: -according to the family, patient has not had any known falls. Patient states that she has not fallen. However, seems that patient has had a bit of trouble with her memory in the last few days. -my interpretation of CT scan: Large subdural hematoma on the left side measuring 1.7 cm, midline shift of 8-9 mm and medialization of the left uncus. I discussed the CT scan with our radiologist on-call as well.. -I discussed the patient and imaging with physician respiratory therapy assistant Cassi from the neurosurgery team. The team will review patient's images and then patient will be transferred. -patient's heart rate between 45 and 50, patient getting Cardene IV drip to help control the blood pressure, goal less than 140 systolic. -patient's oxygen saturation in the low to mid 90s, patient has 2 L of oxygen via nasal cannula -we get a return call from GILBERT from the neurosurgery team, patient will be admitted to the medical team. They are aware that the patient is on a Cardene drip to help control the blood pressure. -recommendations: 1 g of TXA IV -we are waiting for the medicine team to call back so we can transfer the patient. -I discussed the patient with GILBERT Bateman from [facility], pt accepted, bed assignement pending Differential Diagnosis Differential Diagnoses: The differential diagnosis associated with the presentation includes (Subdural hematoma, epidural hematoma) Admission/Observation Consideration of admission/observation: Escalation of care including admission/observation considered Consult Healthcare Provider Management of the patient was discussed with: Hospitalist, Telemarketing Agent and Primary Care Provider Lab Data MDM Lab Attestation statement: I reviewed the patient's lab results. 06/29/23 20:36 06/29/23 20:36 Labs: Lab Results 06/29/23 Range/Units 20:36 WBC 16.5 H (4.8-10.8) X10*3/uL RBC 5.55 H (4.20-5.50) X10*6/uL Hgb 15.5 (12.0-16.0) g/dl Hct 47.6 H (37.0-47.0) % MCV 85.8 (80.0-98.0) fL MCH 27.9 (27.0-33.0) pg MCHC 32.6 (31.0-35.0) g/dl RDW 13.8 (11.0-16.0) % Plt Count 312 (160-400) X10*3/uL MPV 10.4 (9.4-12.3) fL Immature Gran % (Auto) 0.3 (0.0-0.4) % Neut % (Auto) 66.8 (45-73) % Lymph % (Auto) 25.6 (20-40) % Mckenzie % (Auto) 5.3 (2-11) % Eos % (Auto) 1.5 (0-4) % Baso % (Auto) 0.5 (0-2) % Lymph # (Auto) 4.2 (1.2-4.9) X10*3/uL Mckenzie # (Auto) 0.9 (0.1-1.2) X10*3/uL Eos # (Auto) 0.2 (0.0-0.4) X10*3/uL Baso # (Auto) 0.1 (0.0-0.2) X10*3/uL Abs Immat Gran (auto) 0.05 H (0.00-0.03) X10*3/uL Absolute Neuts (auto) 11.0 H (2.0-8.3) x10*3/uL Absolute Nucleated RBC 0.000 (0.0-0.012) X10*3/uL Nucleated RBC % (auto) 0.0 (0.0-0.2) /100WBC ESR 10 (0-20) MM/HR Sodium 140 (135-145) mmol/L Potassium 4.5 (3.3-5.1) mmol/L Chloride 102 (96-108) mmol/L Carbon Dioxide 27 (22-29) mmol/L Anion Gap 16 (12-20) BUN 17 H (9-16) mg/dL Creatinine 0.87 (0.5-1.4) mg/dL Estim Creat Clear Calc 82.6 Estimated GFR > 60 Random Glucose 123 H (60-115) mg/dL Calcium 10.1 (8.4-10.2) mg/dL Magnesium 1.8 (1.6-2.6) mg/dL Total Bilirubin 0.5 (0.0-1.0) mg/dL AST 32 H (5-31) U/L ALT 38 H (0-31) U/L Alkaline Phosphatase 81 (39-117) U/L Ammonia 24 (13-55) umol/L C-Reactive Protein 1.17 H (< or = 0.50) mg/dL Total Protein 7.7 (6.5-8.0) g/dL Albumin 4.0 (3.5-5.0) g/dL Salicylates < 5.0 L (15-30) mg/dL Acetaminophen < 3 (<30) mcg/mL Independent Interpretation I performed an independent interpretation of an: CT Scan Radiology Impression Discussion of test interpretation with radiology: I have reviewed the radiologist's reading. Radiologist Impression: No acute osseous or soft tissue abnormality. The mastoid air cells and visualized portions of the paranasal sinuses are well aerated. There is an acute on chronic left holohemispheric subdural hematoma measuring up to 1.7 cm in thickness. Resultant mass effect with partial effacement of the left lateral ventricle and approximately 8-9 mm rightward midline shift and medialization of the left uncus. Limited comparison with CT of the sinuses dated 06/26/2023 which also demonstrated this abnormality due to differences in imaging technique as well as incomplete imaging of the head on the prior examination. There is no evidence of territorial infarction. Westfall to white matter differentiation is well preserved No hydrocephalus. No significant volume loss. Patchy periventricular and deep white matter hypoattenuation is consistent with mild small vessel ischemic changes. CT/CT head/brain wo IV con IMPRESSION: Acute on chronic left holohemispheric subdural hematoma measuring up to 1.7 cm with resultant rightward midline shift of 8 to 9 mm and medialization of the left uncus. This finding was present on CT of the sinuses from 06/26/2023 but comparison of hematoma size, extent of acute blood products, and mass effect is limited as the intracranial contents were only partially imaged on the prior exam. Independent Historian Clinical information obtained from an independent historian. History obtained from or confirmed by: Spouse Critical Care Time Critical Care Time Critical Care Time: Yes Total Critical Care Time: 60 Attestation: I have personally provided critical care time. Time includes review of lab data, radiology results, discussion with consultants, and monitoring for potential decompensation. Intervention performed as documented. Discharge Plan Discharge Clinical Impression: Acute subdural hematoma Patient Disposition: [facility] Transfer Details: [facility], [facility] Prescriptions: No Action simvastatin 20 mg tablet 1 tab PO BEDTIME omeprazole 20 mg capsule,delayed release(DR/EC) 1 cap PO DAILY metoprolol succinate 25 mg tablet extended release 24 hr 1 tab PO DAILY metformin 500 mg tablet extended release 24 hr 1 tab PO DAILY Print Language: Kenyan
[2023-06-29 20:42] LABS: MANUAL DIFF FLAG NO
[2023-06-29 20:50] LABS: Ammonia 24 umol/L (13-55)
--- NOTE | 2023-06-29 20:51 | PC.NURSE ---
pt from home, alert to self and place only, reporting migraine x3 weeks, denies blurriness in vision, and photosensitivity. pt denies sob, chest pain, n/v/d. pt family at bedside reporting pt has been increasingly altered x1 week, reports pt is unsure of what month it is, has left the pelate stove on at home and drinking a lot of water. pt denies this at this time. Neuro assessment in tact with equal hand grasps, leg raises and facial symmetrical. 20G placed in right hand, vss. at bedside assessing pt. LWK 1 week ago.
[2023-06-29 20:55] LABS: Basophils Absolute Auto 0.1 X10*3/uL (0.0-0.2); Basophils Percent Auto 0.5 % (0-2); Eosinophils Absolute Auto 0.2 X10*3/uL (0.0-0.4); Eosinophils Percent Auto 1.5 % (0-4); Hematocrit 47.6 % (37.0-47.0); Hemoglobin 15.5 g/dl (12.0-16.0); Imm Gran Abs Auto 0.05 X10*3/uL (0.00-0.03); Imm Gran Pct Auto 0.3 % (0.0-0.4); Lymphocytes Absolute Auto 4.2 X10*3/uL (1.2-4.9); Lymphocytes Percent Auto 25.6 % (20-40); Mean Corpuscular HGB Conc 32.6 g/dl (31.0-35.0); Mean Corpuscular Hemoglobin 27.9 pg (27.0-33.0); Mean Corpuscular Volume 85.8 fL (80.0-98.0); Mean Platelet Volume 10.4 fL (9.4-12.3); Monocytes Absolute Auto 0.9 X10*3/uL (0.1-1.2); Monocytes Percent Auto 5.3 % (2-11); Neutrophils Percent Auto 66.8 % (45-73); Platelet Count 312 X10*3/uL (160-400); Red Blood Count 5.55 X10*6/uL (4.20-5.50); Red Cell Distribution Width 13.8 % (11.0-16.0); White Blood Count 16.5 X10*3/uL (4.8-10.8)
[2023-06-29 20:59] LABS: Alanine Aminotransferase 38 U/L (0-31); Alkaline Phosphatase 81 U/L (39-117); Anion Gap 16 (12-20); Aspartate Amino Transferase 32 U/L (5-31); Bilirubin Total 0.5 mg/dL (0.0-1.0); Blood Urea Nitrogen 17 mg/dL (9-16); C Reactive Protein 1.17 mg/dL (< or = 0.50); Calcium 10.1 mg/dL (8.4-10.2); Carbon Dioxide 27 mmol/L (22-29); Chloride 102 mmol/L (96-108); Creatinine Clr Calc Pharmacy 82.6; Estimated Glomerular Filt Rate > 60; Glucose Random 123 mg/dL (60-115); Magnesium 1.8 mg/dL (1.6-2.6); Potassium 4.5 mmol/L (3.3-5.1); Sodium 140 mmol/L (135-145); Total Protein 7.7 g/dL (6.5-8.0)
[2023-06-29 21:01] LABS: Acetaminophen LAB < 3 mcg/mL (<30); Salicylate < 5.0 mg/dL (15-30)
[2023-06-29] MEDS: dexAMETHasone sod phosphate 10 MG/ML VIAL IVPUSH (21:32)
[2023-06-29] MEDS: Morphine Sulfate 4 MG/ML CARTRIDGE IVPUSH (21:32)
[2023-06-29] MEDS: ondansetron HCL 4 MG/2 ML VIAL IVPUSH (21:32)
--- NOTE | 2023-06-29 21:36 | PC.NURSE ---
Addendum entered by Carmen Patel 06/29/23 21:40: per , systolic blood pressure below 140s Original Note: pt medicated per apr, pt tolerated well. per blood pressure systolic okay below 170s.
[2023-06-29 21:39] LABS: Erythrocyte Sedimentation Rate 10 MM/HR (0-20)
[2023-06-29] MEDS: niCARdipine HCL 25 MG in 0.9 % Sodium Chloride 250 ML 52 MG IVCONT (22:21)
[2023-06-29] MEDS: Tranexamic Acid 1,000 MG in 0.9 % Sodium Chloride 50 ML 360 MG IV (22:29)
--- NOTE | 2023-06-29 23:05 | PC.NURSE ---
second IV access established, 18G placed in right AC.
--- NOTE | 2023-06-30 00:10 | PC.NURSE ---
report given to [facility] neuro ICU nurse Shanae LEUNG.
--- NOTE | 2023-06-30 00:34 | PC.NURSE ---
ems at bedside to take report and transport pt to [facility].
[2023-06-30 00:35] VITALS: BP 140/81; PULSE 71; RESP 17; TEMP 36.7; O2SAT 94
[2023-06-30 00:40] VITALS: BP 140/81; PULSE 71; RESP 17; TEMP 36.7; O2SAT 94
[2023-07-02 05:09] LABS: Lyme Abs Screen <0.90 index
[2023-07-02 09:03] LABS: A. Phagocytphilium DNA,RT-PCR NOT DETECTED (NOT DETECTED); Babesia Microti DNA, RT-PCR NOT DETECTED (NOT DETECTED); Borrelia Miyamotoi,DNA RT-PCR NOT DETECTED (NOT DETECTED); E.Chaffeensis DNA RT-PCR NOT DETECTED (NOT DETECTED); Lyme(Borrelia ssp)DNA RT-PCR NOT DETECTED (NOT DETECTED)
== END 2023-06-30 00:42 | disposition short-term general hospital (02) ==
PROVIDERS: Physician Assistant; Emergency Provider Emergency Medicine; PCP Internal Medicine
DX: R51.9 Headache, unspecified (principal); R41.82 Altered mental status, unspecified; Z79.899 Other long term (current) drug therapy; Z51.81 Encounter for therapeutic drug level monitoring
CPT/HCPCS: 36415; 70450; 80053; 80143; 80179; 82140; 83735; 85025; 85652; 86140; 86617; 86618; 87468; 87469; 87478; 87484; 87798; 96374; 96375; 99285; J1100; J2270; J2404; J2405

== ENCOUNTER 2023-07-13 12:30 | Outpatient (REF) | payer MEDICARE, OTHER, SELFPAY ==
[2023-07-13 12:59] LABS: Appearance Urine Hazy; Color Urine Yellow; Glucose Urine UA Negative (Negative); Leukocyte Esterase Urine Moderate (2+) (Negative); Nitrite Urine Positive (Negative); Specific Gravity - Urine 1.015 (1.005-1.025); UMIC TRIGGER UACC YES; Urine Blood Large (3+) (Negative); Urine Ketones Negative (Negative); Urine Protein Trace mg/dL (Neg-Trace)
[2023-07-13 13:20] LABS: Bacteria Urine Trace (None Seen); Hyaline Casts Urine 0-2 /LPF (0-2); UACC Culture Trigger YES
== END 2023-07-13 12:31 | disposition home or self-care (01) ==
LOC: HO.LAB 12:30
PROVIDERS: PCP Internal Medicine; Visit Provider Internal Medicine
DX: R30.0 Dysuria (principal)
CPT/HCPCS: 81001; 81003; 87086

== ENCOUNTER 2023-07-31 09:39 | Outpatient (AMB) | payer MEDICARE, OTHER, SELFPAY ==
--- NOTE | 2023-07-31 09:52 | A.OFFVIS_ITS ---
Vital Signs 3 07/31/23 10:01 Height 5 ft 4 in Weight 232 lb BMI 39.8 BP 162/72 H Blood Pressure Location Lt brachial Position Sitting Pulse 70 Intake Visit Reasons: breast cyst, discuss surgical options Intake Note: Patient is seen in office for evaluation and treatment of a breast cyst. Pt c/o: admist to lump in the right breast near the axilla, has applied heat and went down, has a small blackhead in the area, denies redness, discoloration, discharge or any other concerns mm & us:05/12/23 Excavating Supervisor Required: No Accompanied by: Self / Same As Patient Allergies levofloxacin [LEVOFLOXACIN] Allergy (Severe, Verified 07/31/23 09:54) DIFFICULTY BREATHING Medication List - Last Reconciled 07/31/23 by Toni Egan MD lisinopril 20 mg PO DAILY metformin ER 1 tab PO DAILY omeprazole 1 cap PO DAILY simvastatin 1 tab PO BEDTIME HPI Comments Details: 67-year-old female patient presenting for evaluation of a right breast cyst. She reports that the cyst was initially the size of an almond with a blackhead in the center. This gradually decreased after applying warm moist heat. She now denies any pain associated with the cyst but is still able to see the black head. She underwent a workup with mammogram and ultrasound on 05/12/2023. This confirmed a right breast probable sebaceous cyst located in the 8 o'clock position approximately 12 cm from the nipple. No other suspicious findings were identified (BI-RADS 2). She recently was found to have persistent headaches and subsequent workup revealed a left subdural hematoma. She subsequently underwent drainage of this hematoma followed by cauterization of bleeding vessels. She is still recovering from the surgery. She presents today to discuss management of this palpable breast cyst. [facility] Medical History Blood cholesterol increased compared with prior measurement HTN (hypertension) HTN (hypertension) Diabetes Surgical History Hx of subdural hematoma (07/2023) Hx of wisdom tooth extraction History of pubovaginal sling Hx of colonoscopy Social History Patient Tobacco Use Status: Never used Tobacco Review of Systems Const All systems reviewed & are unremarkable except as noted in HPI and below Physical Exam Vital Signs: Last Vital Signs Pulse 70 07/31/23 10:01 BP 162/72 H 07/31/23 10:01 BMI result Body Mass Index 39.8 Const General: cooperative and no acute distress Nutritional Appearance: well nourished Orientation/consciousness: patient oriented x3 Limitations: no limitations HEENT Other: Well-healed incision in the left temporal region Head: Yes normocephalic Ears: hearing grossly normal bilaterally Chest Other: Left breast: No skin change, no nipple retraction, no nipple discharge, no palpable mass, no enlarged lymph nodes. Right breast: No skin change, no nipple retraction, no nipple discharge, palpable mass in the 8 o'clock position, 12 cm from the nipple within the dermis suggestive of an epidermal inclusion cyst. No evidence of infection at this time and no enlarged lymph nodes Chest/axillae images: 2 1. Palpable mass 08:00 o'clock right breast Resp Effort & Inspection: normal respiratory effort, no audible wheezes, no cough and no respiratory distress Cardio Jugular venous distension: no JVD GI Inspection: Yes normal to inspection Skin Other: Warm, dry, no rash Neuro General: patient oriented x3 Extrem General: Yes no clubbing, cyanosis or edema Assessment & Plan Assessment & Plan (1) Sebaceous cyst of skin of right breast: Code(s): N60.81 - Other benign mammary dysplasias of right breast Category: Medical Plan 67-year-old female patient presenting with a palpable breast cyst in the right breast at the 8 o'clock position confirmed by ultrasound and mammogram to be a sebaceous cyst. Patient is currently recovering from a left subdural hematoma evacuation and does not feel ready to undergo another surgery at this time, which is perfectly understandable. The right breast cyst certainly can be removed under local anesthesia as an office procedure when she feels ready. I reviewed the procedure, risks and alternatives and she expressed understanding. She will call the office when she is ready to proceed with the surgery. Coding Level of Care Code New Pt Level 4 (39360) Diagnoses Sebaceous cyst of skin of right breast N60.81
[2023-07-31 10:01] VITALS: BP 162/72; PULSE 70; BMI 39.8
== END 2023-07-31 10:16 | disposition home or self-care (01) ==
PROVIDERS: PCP Internal Medicine; Visit Provider Surgery
DX: N60.81 Other benign mammary dysplasias of right breast (principal)
CPT/HCPCS: 99204

== ENCOUNTER → 2023-07-31 09:39 | Outpatient (BNVA) | payer MEDICARE, OTHER, SELFPAY | PROVIDERS: PCP Internal Medicine; Visit Provider Surgery | DX: N60.81 Other benign mammary dysplasias of right breast (principal) | CPT/HCPCS: 99202 ==

== ENCOUNTER 2024-03-09 15:39 | Outpatient (REF) | payer MEDICARE, SELFPAY ==
--- NOTE | ~2024-03-09 | XR_ITS ---
CLINICAL HISTORY: Covid positive 2 view chest x-ray Comparison: CR/SR - XR CHEST 2V - 09/10/21 10:27 EDT Findings: The lungs are clear. Normal size heart. No acute fracture. IMPRESSION: 1. No acute findings. This document has been electronically signed by: Rosario Rausch MD on 03/09/2024 16:11:00
== END 2024-03-09 15:40 | disposition home or self-care (01) ==
LOC: HO.XRAY 15:39
PROVIDERS: PCP Internal Medicine; Visit Provider Internal Medicine
DX: U07.1 COVID-19 (principal)
CPT/HCPCS: 71046

== ENCOUNTER → 2024-03-09 15:50 | Outpatient (BNV) | payer MEDICARE, SELFPAY | PROVIDERS: PCP Internal Medicine; Visit Provider Radiology Diagnostic Radiology | DX: U07.1 COVID-19 (principal) | CPT/HCPCS: 71046 ==

== ENCOUNTER 2024-04-21 09:19 | Outpatient (AMB) | payer MEDICARE, SELFPAY ==
--- NOTE | 2024-04-21 09:24 | MHC.OFFVIS ---
Vital Signs 04/21/24 09:35 Height 5 ft 4 in Weight 236 lb BMI 40.5 BP 154/70 H Blood Pressure Location Lt brachial Position Sitting Pulse 72 Intake Visit Reasons: Nipple swelling Intake Note: Patient is seen in office for nipple swelling. Pt c/o: right nipple was swollen, red and painful, was seen by greeting card writer back in 12/2023 and was given antbx, currently has no symptoms wants to make sure is doing well L.OV:07/31/23 (Rt Breast Cyst) Flosser Required: No Accompanied by: Spouse Allergies levofloxacin [LEVOFLOXACIN] Allergy (Severe, Verified 04/21/24 09:31) DIFFICULTY BREATHING HPI Comments Details: 68-year-old female patient previously evaluated for a right breast cyst on 07/31/2023 now returning for evaluation of right nipple swelling. She has had several episodes of the right nipple swelling in initially was placed on antibiotics which seemed to help. She reports a 2nd episode approximately 2 weeks ago which resolved spontaneously without antibiotics. She denies any current pain, swelling, bleeding or discharge from the nipple. She denies any changes to the left nipple. She was previously evaluated for an epidermal inclusion cyst of the right breast at the lower outer quadrant. She feels that this has subsequently resolved and is no longer causing any symptoms. She is due for an annual mammogram this month and [facility]. Her most recent mammogram of 05/12/2023 revealed no suspicious findings in either breast but did confirm a 7 x 5 x 6 mm sebaceous cyst in the right breast at the 08:00 o'clock axis. This was felt to be benign (BI-RADS 2). Last year she was found to have a left subdural hematoma and subsequently underwent drainage of this hematoma followed by cauterization of bleeding vessels. She feels much improved and denies any ongoing headaches. [facility] Medical History Blood cholesterol increased compared with prior measurement HTN (hypertension) HTN (hypertension) Diabetes Surgical History Hx of dilation and curettage (10/2023) Hx of subdural hematoma (07/2023) Hx of wisdom tooth extraction History of pubovaginal sling Hx of colonoscopy Social History Patient Tobacco Use Status: Never used Tobacco Review of Systems Const All systems reviewed & are unremarkable except as noted in HPI and below Physical Exam Vital Signs: Last Vital Signs Pulse 72 04/21/24 09:35 BP 154/70 H 04/21/24 09:35 BMI result Body Mass Index 40.5 Const General: cooperative and no acute distress Nutritional Appearance: well nourished Orientation/consciousness: patient oriented x3 Limitations: no limitations HEENT Other: Well-healed incision in the left temporal region Head: Yes normocephalic Ears: hearing grossly normal bilaterally Chest Other: Left breast: No skin change, no nipple retraction, no nipple discharge, no palpable mass, no enlarged lymph nodes. Right breast: No skin change, normal-appearing nipple with no nipple retraction, no nipple discharge, no palpable mass, no enlarged lymph node Resp Effort & Inspection: normal respiratory effort, no audible wheezes, no cough and no respiratory distress Cardio Jugular venous distension: no JVD GI Inspection: Yes normal to inspection Skin Other: Warm, dry, no rash Neuro General: patient oriented x3 Extrem General: Yes no clubbing, cyanosis or edema Assessment & Plan Assessment & Plan (1) Sebaceous cyst of skin of right breast: Code(s): N60.81 - Other benign mammary dysplasias of right breast Category: Medical Plan 68-year-old female patient presenting with a recent history of right nipple swelling and pain. She has had a previous episode last year which resolved after antibiotics. The current episode resolved spontaneously without antibiotics examination today revealed no suspicious findings in either breast. She is due for a mammogram next month and we will await these findings. She is welcome to call our office should the nipple swelling return for re-evaluation. She will follow-up as needed. Coding Level of Care Code Est Pt Level 3 (36218) Diagnoses Sebaceous cyst of skin of right breast N60.81
[2024-04-21 09:35] VITALS: BP 154/70; PULSE 72; BMI 40.5
--- OUTSIDE RECORDS SUMMARY | 2024-04-21 10:03 | XMS_ITS ---
Author Organization [facility] Address [address] [place] [address] Care Team Providers Care Clothes Ironer Name Role Phone Nilson Givens MD Primary Care Provider Yeimi Durand [phone] REASON FOR VISIT prior auth for pharmacy Encounters Encounter Location Date Provider Diagnosis [address] [address] 02/18/2024 Yeimi Christopher Plan Of Treatment Next Appt Details Provider Name:Yeimi salazar, 05/24/2024 10:00:00 AM, [address] [place], [address], Progress Notes * Rosanna ROWLANDaDOB:1955 (68 yo F)Acc No.[id number]:02/18/2024 Patient:?Cande ROWLAND :1955???Age:68 Y???Sex:Female Address:[address] [place], [address] * true * Date:? Generated for Rosei gal/Douglas/eTransmitting on:?04/21/2024 10:03 AM EST
--- OUTSIDE RECORDS SUMMARY | 2024-04-21 10:03 | XMS_ITS ---
[facility] Address [address] [place] [address] Care Team Providers Care Character Actress Name Role Phone Nilson Givens MD Primary Care Provider Yeimi Durand Unavailable [phone] Allergies Allergen (clinical drug ingredient) Drug/Non Drug Allergy documented on EMR Reaction Allergy Type Onset Date Status levofloxacin Levofloxacin throat swelling, itching Drug Allergy Active REASON FOR VISIT Skin Problem Medications Medication SIG (Take, Route, Frequency, Duration) Notes Start Date End Date Status Vitamin D Active Cephalexin 500 MG 1 capsule Orally tony ry 12 hrs for 5 days Not-Taking Ciclopirox Olamine 0.77 % 1 application Externally Twice a day to both feet for 30 days 01/18/2024 Active Nystatin-Triamcinolone 370181-0.1 UNIT/GM 1 application Externally Twice a day to both feet for 30 days 01/18/2024 Active Hydrocortisone 2.5 % 1 application Externally Twice a day for 30 days Active Metoprolol Succinate ER 25 MG Oral for 90 Not-Taking metFORMIN HCl ER 500 MG TAKE 1 TABLET BY MOUTH EVERY DAY Oral for 30 Active Simvastatin 20 MG Oral for 90 Active Omeprazole 20 MG Oral for 90 A ctive Allergy Active Lisinopril 20 MG 1 tablet Orally Once a day Active Omeprazole 20 MG 1 capsule 30 minutes before morning meal Orally Once a day for 30 day(s) Active Simvastatin 20 MG 1 tablet in the evening Orally Once a day for 30 day(s) Active Metoprolol Succinate 25 MG 1 capsule Ora lly Once a day for 30 day(s) Not-Taking metFORMIN HCl ER 500 MG 1 tablet with ev ening meal Orally Once a day for 30 day(s) Not-Taking Social History Tobacco Use: Social History Observation Description Date Details (start date - stop date) Never Smoker NA - NA Tobacco Use/Smoking Question Answer Notes Are you a: nonsmoker Additional Findings: Tobacco Non-User Current no n-smoker Tobacco use other than smoking: Question Answer Notes Are you an other tobacco user? No Vital Signs Height 5ft5in in 01/20/2024 Weight 230 lbs 01/20/2024 BMI 38.27 kg/m2 01/20/2024 Blood pressure systolic 130 mm Hg 01/20/20 24 Blood pressure diastolic 70 mm Hg 024 Encounters Encounter Location Date Provider Diagnosis [facility] [address] [place] [address] 01/20/2024 Yeimi Christopher Tinea pedis of both feet B35.3 Assessments Encounter Date Diagnosis (ICD Code) Assessment Notes Treatment Notes Treatment Clinical Notes Section Notes 01/20/2024 Tinea pedis of both feet (ICD-10 - B35.3) Plan Of Treatment Next Appt Details Follow Up: as scheduled, Charo son: Provider Name:Yeimi salazar, 05/24/2024 10:00:00 AM, [address] [place] [address], [address], Progress Notes * Reid ROWLANDB:1955 (68 yo F)Acc No.[id number]:01/20/2024 Progress Note Patient:?JUAN JOSE Cande Provider:?Yeimi Christopher DPM :1955???Age:68 Y???Sex:Female D ate:01/20/2024 [facility] Pcp:Nilson Givens MD Subjective: * Chief Complaints: * ???Skin Problem * HPI: ???Skin problems:?Nature:?scaling , redness, red spots.?Location:?B/L .?Duration:?several days.?Course:?improved with use of cream.?Treatments:?Medication (Ciclopirox Olamine 0.77 Cream).? * ROS:?General/Constitutional:?Nausea?denies.?Vomiting?denies.?Hunger Thirst?denies.?Loss appetite?denies.?Chills?denies.?Fatigue?denies.?Fever?denies.?Night Sweats?denies.?Unexplained weight loss?denies.?Unexplained weight gain?denies.?HEENTM:?Dentures?denies.?Dizziness?denies.?Glasses/contacts?denies.?Retinopathy?de nies.?Blurred/double vision?denies.?TMJ?denies.?Discharge/drainage?denies.?Implants?denies.?Sore throat?denies.?Dental implants?denies.?Hard of hearing ?denies.?Difficulty chewing/swallowing/speaking?denies.?Nose bleeds?denies.?Sore mouth?denies.?Respiratory:?On Oxygen?denies.?Pneumonia/pleurisy?denies.?Bronchitis?denies.?Emphysema?denies.?C oughing?denies.?Cough blood?denies.?Shortness of breath?denies.?Wheezing?denies.?Cardiovascular:?Pacemaker?denies.?MVP?denies.?WPW?denies.?CHF?denies.?Heart attack?denies.?Septal defect?denies.?Rapid beat?denies.?Chest pain ?denies.?Atrial Fib.?denies.?Murmur/Palpitations?denies.?Gastrointestinal:?Hemorrhoids?denies.?Stomach/Abdominal pain?denies.?Dark blood stool?denies.?Irritable bowel ?denies.?Constipation?denies.?Diarrhea?denies.?Hematology:?Swelling?denies.?Clots?denies.?Varicose Veins?denies.?Bruising?denies.?Bleeding problem?denies.?Genitourinary:?Blood urine?denies.?Frequent/Painfu/urination/bladder control?denies.?Kidney stones?denies.?Infection (UTI)?denies.?Nephropathy?denies.?sex trans dis (STD)?denies.?Prostate?denies.?Musculoskeletal:?Hammertoes?denies.?Bunions?denies.?Back Pain?denies.?Muscle Cramps/ Resting?denies.?Muscle cramps / walking?denies.?Generalized aches and pains?denies.?Weakness?denies.?Integ.:?Parker?denies.?Scars?denies.?Corns/calluses?denies.?Ingrown nails?denies.?Painful nails?admits.?Open Sores?denies.?Rashes?denies.?Neurologic:?Difficulty sleeping?denies.?Brain disorder?denies.?Numbness?denies.?Balance trouble?denies.?Confusion?denies.?Fainting/blackouts?denies.?Tingling?denies.?Tr emors?denies.? * Medical History:? * Surgical History:?bladder sl ing wisdom teeth extraction tonsillectomy colonoscopy vein surgery, cauterize aystate- brain bleed NC 10/2023 * Hospitalization/Major Diagno stic Procedure:?child * Family History:?Mother: dece ased.?Father: .?Siblings: diagnosed with Diabetic - NIDDM.? * Social History:?Tobacco Use:?Tobacco Use/Smoking?Are you a:?nonsmoker ?Additional Findings: Tobacco Non-User?Current non-smoker ?Tobacco use other than smoking?Are you an other tobacco user??No * Medications:?TakingLisinopri l 20 MG Tablet 1 tablet Orally Once a day Simvastatin 20 MG Tablet 1 tablet in the evening Orally Once a day Omeprazole 20 MG Capsule Delayed Release 1 capsule 30 minutes before morning meal Orally Once a day Allergy metFORMIN HCl ER 500 MG Tablet Extended Release 24 Hour TAKE 1 TABLET BY MOUTH EVERY DAY Oral Omeprazole 20 MG Capsule Delayed Release Oral Simvastatin 20 MG Tablet Oral Vitamin D Hydrocortisone 2.5 % Cream 1 application Externally Twice a day Nystatin-Triamcinolone 680355-2.1 UNIT/GM Cream 1 application Externally Twice a day to both feet Ciclopirox Olamine 0.77 % Cream 1 application Externally Twice a day to both feet Taking Lisinopril 20 MG Tablet 1 tablet Orally Once a day Taking Simvastatin 20 MG Tablet 1 tablet in the evening Orally Once a day Taking Omeprazole 20 MG Capsule Delayed Release 1 capsule 30 minutes before morning meal Orally Once a day Taking Allergy Taking metFORMIN HCl ER 500 MG Tablet Extended Release 24 Hour TAKE 1 TABLET BY MOUTH EVERY DAY Oral Taking Omeprazole 20 MG Capsule Delayed Release Oral Taking Simvastatin 20 MG Tablet Oral Taking Vitamin D Taking Hydrocortisone 2.5 % Cream 1 application Externally Twice a day Taking Nystatin-Triamcinolone 713810-2.1 UNIT/GM Cream 1 application Externally Twice a day to both feet Taking Ciclopirox Olamine 0.77 % Cream 1 application Externally Twice a day to both feet Not-Taking/PRNmetFORMIN HCl ER 500 MG Tablet Extended Release 24 Hour 1 tablet with evening meal Orally Once a day Metoprolol Succinate 25 MG Capsule ER 24 Hour Sprinkle 1 capsule Orally Once a day Metoprolol Succinate ER 25 MG Tablet Extended Release 24 Hour Oral Cephalexin 500 MG Capsule 1 capsule Orally every 12 hrs Medication List reviewed and reconciled with the patientNot-Taking/PRN metFORMIN HCl ER 500 MG Tablet Extended Release 24 Hour 1 tablet with evening meal Orally Once a day Not- Taking/PRN Metoprolol Succinate 25 MG Capsule ER 24 Hour Sprinkle 1 capsule Orally Once a day Not-Taking/PRN Metoprolol Succinate ER 25 MG Tablet Extended Release 24 Hour Oral Not-Taking/PRN Cephalexin 500 MG Capsule 1 capsule Orally every 12 hrs Medication List reviewed and reconciled with the patient * Allergies:?Levofloxacin: thr oat swelling, itchingyes[Allergies Verified] Objective: * Vitals:?Ht: 5ft5in, Wt:230, BMI:38.27, Shoe size: 9-9.5, BP:130/70mm Hg, BS: not taken, Ht-cm: 165.1 cm, Wt-k.33 kg. * ???Past Orders: ???Lab:HEMOGLOBIN A1C (GLYCO HEMOGLOBIN) (Order Date - 07/01/2023) (Collection Date & Time - 07/01/2023 03:35 PM) ? Value Reference Range ?HEMOGLOBIN A1C (HH) 6.2 * Examination: ???Ophthalmology Referral: ?DIABETES EYE EXAM?Dermatologic: ?SKIN FINDINGS:? Skin shows sign(s) of, erythema, scaling, in a moccasin fashion, no fissure(s) present, B/L.?Neurological: ?SENSORY:?Neurological exam demonstrates, reduced light touch sensation, reduced sharp/dull discrimination , reduced vibration sensation, in a stocking fashion, B/L, 5.07 monofilament test performed at plantar aspects of 5 varied sites per foot shows sensation, reduced, B/L.?Vascular: ?DP PULSES(B):?3/4, B/L.?PT PULSES(B):?3/4, B/L.?CAPILLARY FILL TIME:?immediate, all digits, B/L.?TROPHIC CONDITION-TEXTURE/ELASTICITY/TURGOR/HAIR GROWTH(B):?normal, B/L.?TEMPERTURE GRADIENT(C):?normal, warm to cool, proximal to distal, B/L, B/L.?PIGMENTATION:?normal, B/L.? Assessment: * Assessment: 1.?Tinea pedis of both feet - B35.3 (Primary)???Specify :Acute problem, Uncomplicated (3),Rx drug management (4)??? Plan: * Treatment: * Procedure Codes:? * Preventive Medicine:? ??Counseling:?Discussion:?-13: Office or other outpatient visit for the evaluation and management of an established patient, which required a medically appropriate history and/or examination and LOW level of DECISION MAKING for: 1 STABLE ACUTE UNCOMPLICATED PROBLEM, 2 OR MORE MINOR PROBLEMS, OR 1 STABLE CHRONIC PROBLEM, THAT POSE(S) A LOW RISK FOR MORBIDITY/MORTALITY. The visit on the day of the encounter encompassed interpreting the data and educating the patient as to the nature of their condition, treatment options available according to their individual PMH, meds, allergies, and overall health/living conditions, as well as any potential risks or complications that may occur from a failure to adhere to, and participate in, the recommended course of therapy. The discussion included a complete verbal, and/or written explanation of the examination results, any x-rays taken, the proposed diagnosis, and outline of the treatment plan. A schedule for future care needs was also explained. The patient verbalized an understanding of the instructions at this time and agreed to be an active participant in their treatment. If the patient should think of any questions or concerns after the visit, I have encouraged the patient to call the office.?Tinea Pedis:?The patient was counseled on the diagnosis, potential etiologies, and treatment options for their skin condition. We discussed the risks and benefits of each option from performing no treatment, to utilizing OTC topical skin creams, prescription topical creams, customized compounded topical medications, and, if necessary, to utilize oral antifungal therapy. We discussed the advantages and disadvantages of each possible treatment and importance for adherence to all the recommended therapies for optimum success and avoid potential complications such as open sore/infection/possible hospitalization. We discussed the potential effectiveness of each topical preparation as well as each ones possible side effects and/or patient medication interactions if oral therapy is selected. Patient questions re: the advantages and disadvantages of each treatment choice, medication use/dosage, successful outcomes, and application consistency were reviewed and the patient verbalized that all answers were clearly understood. The patient was told they can help alleviate symptoms by utilizing moisture absorbant innersoles with activated charcoal and baking soda, applying antifungal sprays daily, aerating toe web spaces at night by putting cotton or lambs wool between the toes, alternating shoe gear daily if possible so they can dry out, changing socks at least once during the day, wearing well-ventilated shoes or sandals , Given recent successful results to treatment, The patient is to cont the rx cream as directed.? * Follow Up:?as scheduled * Images: * Sign off status: Completed true * Provider:Jake Christopher DPM Date:? Generated for Printi ng/Douglas/eTransmitting on:?04/21/2024 10:03 AM EST History and Physical Notes * HPI (History of Present Illness) Category Sub-Category Detail Notes Category Not es Skin problems Nature: scaling , redness, red spot s Location: B/L Duration: several days Course: improved with use of cream Treatments: Medication (Ciclopir ox Olamine 0.77 Cream) Examination Category Sub-Category Detail Notes Category Not es Neurological SENSORY: Neurological exa m demonstrates, reduced light touch sensation, reduced sharp/dull discrimination , reduced vibration sensation, in a stocking fashion, B/L, 5.07 monofilament test performed at plantar aspects of 5 varied sites per foot shows sensation, reduced, B/L Dermatologic SKIN FINDINGS: Skin shows sign( s) of, erythema, scaling, in a moccasin fashion, no fissure(s) present, B/L Ophthalmology Referral DIABETES EYE EXAM Procedu re Performed:: No Eye Exam not performed:: No reason speci fied Findings of Diabetic Eye Exam:: no retin opathy Vascular DP PULSES (B): 3/4, B/L PT PULSES (B): 3/4, B/L CAPILLARY FILL TIME: immediate, all digi ts, B/L TEMPERTURE GRADIENT (C): normal, warm to cool, proximal to distal, B/L, B/L TROPHIC CONDITION-TEXTURE/ELASTICITY/TURGOR/HAIR GROWTH (B): normal, B/L PIGMENTATION: normal, B/L
--- OUTSIDE RECORDS SUMMARY | 2024-04-21 10:04 | XMS_ITS | Patient Health Record ---
Author Organization [facility] Address [address] [place] [address] Care Team Providers Care Dyslexia Teacher Name Role Phone Nilson Givens MD Primary Care Provider Yeimi Durand Unavailable [phone] Allergies Allergen (clinical drug ingredient) Drug/Non Drug Allergy documented on EMR Reaction Allergy Type Onset Date Status levofloxacin Levofloxacin throat swelling, itching Drug Allergy Active Results Component Value Reference Range Notes HEMOGLOBIN A1C (GLYCOHEMOGLO BIN) Reviewed date:08/11/2023 03:36:47 PM Interpretation: Performing Lab: Notes/Report: HEMOGLOBIN A1C (HH) 6.2 Reason For Referral No Information Medications Medication SIG (Take, Route, Frequency, Duration) Notes Start Date End Date Status Nystatin-Triamcinolone 043964-9.1 UNIT/GM 1 application Externally Twice a day to both feet for 30 days 01/18/2024 Active Hydrocortisone 2.5 % 1 application Externally Twice a day for 30 days Active Vitamin D Active Simvastatin 20 MG Oral for 90 Active Omeprazole 20 MG Oral for 90 A ctive metFORMIN HCl ER 500 MG TAKE 1 TABLET BY MOUTH EVERY DAY Oral for 30 Active Allergy Active Cephalexin 500 MG 1 capsule Orally tony ry 12 hrs for 5 days Not-Taking Omeprazole 20 MG 1 capsule 30 minutes before morning meal Orally Once a day for 30 day(s) Active Metoprolol Succinate ER 25 MG Oral for 90 Not-Taking Simvastatin 20 MG 1 tablet in the evening Orally Once a day for 30 day(s) Active Metoprolol Succinate 25 MG 1 capsule Ora lly Once a day for 30 day(s) Not-Taking Lisinopril 20 MG 1 tablet Orally Once a day Active metFORMIN HCl ER 500 MG 1 tablet with ev ening meal Orally Once a day for 30 day(s) Not-Taking Ciclopirox Olamine 0.77 % 1 application Externally Twice a day to both feet for 30 days 01/18/2024 Active Ammonium Lactate 12 % 1 application Externally to affected areas of dry skin to feet except for between the toes Twice a day for 30 days Active Immunizations Vaccine Route Administration Date Status Comme nts COVID-19 Moderna Vaccine Unknown 01/02/2021 Administered 1st 04/24/2020 2nd 05/22/2020 Influenza Unknown 01/02/2021 Administered Influenza Unknown 12/01/2022 Administered Social History Tobacco Use: Social History Observation Description Date Details (start date - stop date) Never Smoker NA - NA Tobacco Use/Smoking Question Answer Notes Are you a: nonsmoker Additional Findings: Tobacco Non-User Current no n-smoker Alcohol Screen Question Answer Notes Did you have a drink contain ing alcohol in the past year? Yes How often did you have a dri nk containing alcohol in the past year? Monthly or less (1 point) Points 1 Interpretation Negative Tobacco use other than smoking: Question Answer Notes Are you an other tobacco user? No Problems Problem Type SNOMED Code ICD Code Onset Dates Problem Status W/U Status Risk Notes Problem 70206106 Type 2 diabetes mellitus with polyneuropathy (E11.42) Active confirmed Vital Signs Blood pressure diastolic 70 mm Hg 02/16/2024 Height 5ft5in in 02/16/2024 Blood pressure systolic 130 mm Hg 02/16/2024 Weight 230 lbs 02/16/2024 BMI 38.27 kg/m2 02/16/2024 Encounters Encounter Location Date [facility] [address] 08/11/2023 Yeimi Perica Xerosis of skin L85. 3 and Type 2 diabetes mellitus with polyneuropathy E11.[address] [address] 12/01/2023 Yeimi Perica Xerosis of skin L85. 3 and Type 2 diabetes mellitus with polyneuropathy E11.[address] [address] 01/20/2024 Yeimi Perica [facility]inea pedis of both feet B35.3 [facility] [address] [place] [address] 02/16/2024 Yeimi Timoa Tinea pedis of both feet B35.3 ; Xerosis of skin L85.3 and Type 2 diabetes mellitus with polyneuropathy E11.[address] [address] 06/30/2023 [facility] [address] [place] [address] 01/18/2024 [facility] Timoa [facility] [address] 01/18/2024 [facility]a [facility] [address] 02/18/2024 Yeimi Christopher Assessments Encounter Date Diagnosis (ICD Code) Assessment Notes Treatment Notes Treatment Clinical Notes Section Notes 08/11/2023 Xerosis of skin (ICD-10 - L85.3) 12/01/2023 Xerosis of skin (ICD-10 - L85.3) 01/20/2024 Tinea pedis of both feet (ICD-10 - B35.3) 02/16/2024 Tinea pedis of both feet (ICD-10 - B35.3) 02/16/2024 Xerosis of skin (ICD-10 - L85.3) 12/01/2023 Type 2 diabetes mellitus with polyneuropathy (ICD-10 - E11.42) 08/11/2023 Type 2 diabetes mellitus with polyneuropathy (ICD-10 - E11.42) 02/16/2024 Type 2 diabetes mellitus with polyneuropathy (ICD-10 - E11.42) Plan Of Treatment Next Appt Details Provider Name:Yeimi salaazr, 05/24/2024 10:00:00 AM, [address] [place] [address], [phone], Insurance Providers Payer Name Payer Address Payer Phone Subscriber Number Group Number Insured Name Patient Relationship to Insured Coverage Start Date Coverage End Date Medicare National [employer]t [employer] [address] [place] [address] [id number] Cande De La O Self - patient is the insured [facility] [address] [place] [address] [id number] Cande De La O Self - patient is the insured Medical (General) History Medical History History ICD Code type II diabetes Headaches/Migraines High blood pressure Measles Mumps Chicken pox Cholesterol Surgical History Surgery Date(Month/Year) bladder sling wisdom teeth extraction tonsillectomy colonoscopy vein surgery, cauterize 07/2023 [facility]- brain bleed 06/2023 [facility] 10/2023 Hospitalization History Reason Date(Month/Year) child
--- OUTSIDE RECORDS SUMMARY | 2024-04-21 10:04 | XMS_ITS | Patient Health Record ---
Author Organization [facility] Address [address] [place] [address] Care Team Providers Care Materials Planning Manager Name Role Phone Nilson Givens MD Primary Care Provider Kevyn Echeverria Jr Unavailable ALLERGIES Allergen (clinical drug ingredient) Drug/Non Drug Allergy documented on EMR Reaction Allergy Type Onset Date Status levofloxacin Levofloxacin Unknown Drug Allergy A ctive REASON FOR REFERRAL No Information MEDICATIONS Medication SIG (Take, Route, Frequency, Duration) Notes Start Date End Date Status metFORMIN HCl ER 500 MG 1 tablet with ev ening meal Orally Once a day for 30 day(s) Active Metoprolol Succinate 25 mg Active Simvastatin 20 MG 1 tablet in the even ing Orally Once a day Active Vitamin D (Cholecalciferol) 25 MCG (1000 UT) 1 capsule Orally Once a day for 30 day(s) Active Omeprazole 20 MG 1 capsule Orally Onc e a day Active MiraLax (colon prep) 17 GM/SCOOP mixed with Gatorade or Crystal Light Orally begin at 5:00 p.m. the day before the procedure for 1 day 08/05/2021 Active IMMUNIZATIONS Vaccine Route Administration Date Status Comme nts Influenza Unknown 01/16/2021 Administered SOCIAL HISTORY Sex Assigned At : Social History Observation Description Sex Assigned At Unknown PROBLEMS Problem Type ICD Code Onset Dates Problem Status W/U Status Risk SNOMED Code Notes Problem Colon cancer screening (Z12.11) Active confirmed 058239187 Problem Encounter for other preprocedural examination (Z01.818) Active confirmed 48594969 Problem alf (current) use of oral hypoglycemic drugs (Z79.84) Active confirmed 512788972146463 Problem History of colonic polyps (Z86.010) Active confirmed History of poly p of colon (487241586) PLAN OF TREATMENT Future Test Test Name Order Date COLONOSCOPY 03/05/2016 COLONOSCOPY 08/05/2021 Insurance Providers Payer Name Payer Address Payer Phone Subscriber Number Group Number Insured Name Patient Relationship to Insured Coverage Start Date Coverage End Date MEDICARE OF [place] [address] [place] [id number] STEWART FISHER Self - patient is the insured [employer] ATT[employer] CLAIMS [address] [place] [address] [id number] STEWART FISHER Self - patient is the insured MEDICAL (GENERAL) HISTORY Medical History History ICD Code Colonoscopy 05/30/16, tubular adenoma, fi ve-year followup 05/21 back problems gastroesophageal reflux disease hypertension elevated cholesterol elevated blood sugar Surgical History Surgery Date(Month/Year) bladder suspension
--- OUTSIDE RECORDS SUMMARY | 2024-04-21 10:04 | XMS_ITS ---
Author Organization [facility] Address [address] [place] [address] Care Team Providers Care Underwear Cutter Name Role Phone Nilson Givens MD Primary Care Provider Yeimi Durand Unavailable [phone] Allergies Allergen (clinical drug ingredient) Drug/Non Drug Allergy documented on EMR Reaction Allergy Type Onset Date Status levofloxacin Levofloxacin throat swelling, itching Drug Allergy Active REASON FOR VISIT At Risk Footcare, Skin problem(s) Medications Medication SIG (Take, Route, Frequency, Duration) Notes Start Date End Date Status metFORMIN HCl ER 500 MG 1 tablet with ev ening meal Orally Once a day for 30 day(s) Not-Taking Nystatin-Triamcinolone 252956-9.1 UNIT/GM 1 application Externally Twice a day to both feet for 30 days 01/18/2024 Active Cephalexin 500 MG 1 capsule Orally tony ry 12 hrs for 5 days Not-Taking Metoprolol Succinate ER 25 MG Oral for 90 Not-Taking Metoprolol Succinate 25 MG 1 capsule Ora lly Once a day for 30 day(s) Not-Taking Hydrocortisone 2.5 % 1 application Externally Twice a day for 30 days Active Ciclopirox Olamine 0.77 % 1 application Externally Twice a day to both feet for 30 days 01/18/2024 Active Vitamin D Active Ammonium Lactate 12 % 1 application Externally to affected areas of dry skin to feet except for between the toes Twice a day for 30 days Active Simvastatin 20 MG Oral for 90 Active Omeprazole 20 MG Oral for 90 A ctive metFORMIN HCl ER 500 MG TAKE 1 TABLET BY MOUTH EVERY DAY Oral for 30 Active Allergy Active Omeprazole 20 MG 1 capsule 30 minutes before morning meal Orally Once a day for 30 day(s) Active Simvastatin 20 MG 1 tablet in the evening Orally Once a day for 30 day(s) Active Lisinopril 20 MG 1 tablet Orally Once a day Active Social History Tobacco Use: Social History Observation Description Date Details (start date - stop date) Never Smoker NA - NA Tobacco Use/Smoking Question Answer Notes Are you a: nonsmoker Additional Findings: Tobacco Non-User Current no n-smoker Tobacco use other than smoking: Question Answer Notes Are you an other tobacco user? No Vital Signs Height 5ft5in in 02/16/2024 Weight 230 lbs 02/16/2024 BMI 38.27 kg/m2 02/16/2024 Blood pressure systolic 130 mm Hg 02/16/20 24 Blood pressure diastolic 70 mm Hg 024 Encounters Encounter Location Date Provider Diagnosis [facility] [address] [place] [address] 02/16/2024 Yeimi Christopher Tinea pedis of both feet B35.3 ; Xerosis of skin L85.3 and Type 2 diabetes mellitus with polyneuropathy E11.42 Assessments Encounter Date Diagnosis (ICD Code) Assessment Notes Treatment Notes Treatment Clinical Notes Section Notes 02/16/2024 Tinea pedis of both feet (ICD-10 - B35.3) 02/16/2024 Xerosis of skin (ICD-10 - L85.3) 02/16/2024 Type 2 diabetes mellitus with polyneuropathy (ICD-10 - E11.42) Plan Of Treatment Medication Medication Name Sig Start Date Stop Date Notes Ciclopirox Olamine 0.77 % 1 application Externally Twice a day to both feet for 30 days 01/18/2024 Ammonium Lactate 12 % 1 application Exte rnally to affected areas of dry skin to feet except for between the toes Twice a day for 30 days Next Appt Details Follow Up: 2 Months, Reason: Provider Name:Yeimi salazar, 05/24/2024 10:00:00 AM, [address] [place], [address], Procedure Notes * Category Sub-Category Detail Notes Keratoma Treatment Parring or Cutting o f Benign Hyperkeratotic Lesion(s) (-57) More than 4 Lesions - Due to the at risk nature of the patients medical condition as documented in the exam findings, performance of this keratoderma treatment is medically necessary as its management by an unskilled/untrained nonprofessional would put this patients foot and overall health at risk. Therefore, the benign hyperkeratotic lesions, ( 8 ) in total, locations as stated and described in the exam ( TA , T5 , SUB MTH (s) , 1 , 5 , Heel(s) , B/L ), were pared, and/or cut utilizing a sterile 15 blade, tissue nippers, and/or power dremel instrumentation by the physician of record - [id number] Nail Reduction Nail Reduction Trimming of dyst rophic nails performed to reduce/remove overall nail length and girth, by manual and electrical means with use of a nail nipper and/or dremel, to more viable healthy nail plate or bed tissue 6-10 (G0127) Progress Notes * Rosanna ROWLANDaDOB:1955 (68 yo F)Acc No.[id number]:02/16/2024 Progress Note Patient:?Cande ROWLAND Provider:?Yeimi Christopher DPM :1955???Age:68 Y???Sex:Female D ate:02/16/2024 [facility] Pcp:Nilson Givens MD Subjective: * Chief Complaints: * ???At Risk FootcareSkin prob valeri(s) * HPI: ???Skin problems:?Nature:?scaling , redness, red spots , dryness ,.?Location:?B/L.?Duration:?several weeks.?Course:?improved with use of cream?.?Treatments:?Medication (Ciclopirox Olamine 0.77 Cream).?At Risk footcare:?Pt States Last PCP Visit:?Date?07/01/2023 * ROS:?General/Constitutional:?Nausea?denies.?Vomiting?denies.?Hunger Thirst?denies.?Loss appetite?denies.?Chills?denies.?Fatigue?denies.?Fever?denies.?Night Sweats?denies.?Unexplained weight loss?denies.?Unexplained weight gain?denies.?HEENTM:?Dentures?denies.?Dizziness?denies.?Glasses/contacts?denies.?Retinopathy?den ies.?Blurred/double vision?denies.?TMJ?denies.?Discharge/drainage?denies.?Implants?denies.?Sore throat?denies.?Dental implants?denies.?Hard of hearing ?denies.?Difficulty chewing/swallowing/speaking?denies.?Nose bleeds?denies.?Sore mouth?denies.?Respiratory:?On O xygen?denies.?Pneumonia/pleurisy?denies.?Bronchitis?denies.?Emphysema?denies.?Co ughing?denies.?Cough blood?denies.?Shortness of breath?denies.?Wheezing?denies.?Cardiovascular:?Pacemaker?denies.?MVP?denies.?WPW?denies.?CHF?denies.?Heart attack?denies.?Septal defect?denies.?Rapid beat?denies.?Chest pain ?denies.?Atrial Fib.?denies.?Murmur/Palpitations?denies.?Gastrointestinal:?Hemorrhoids?denies.?Stomach/Abdominal pain?denies.?Dark blood stool?denies.?Irritable bowel ?denies.?Constipation?denies.?Diarrhea?denies.?Hematology:?Swelling?denies.?Clots?denies.?Varicose Veins?denies.?Bruising?denies.?Bleeding problem?denies.?Genitourinary:?Blood urine?denies.?Frequent/Painfu/urination/bladder control?denies.?Kidney stones?denies.?Infection (UTI)?denies.?Nephropathy?denies.?sex trans dis (STD)?denies.?Prostate?denies.?Musculoskeletal:?Hammertoes?denies.?Bunions?denies.?Back Pain?denies.?Muscle Cramps/ Resting?denies.?Muscle cramps / walking?denies.?Generalized aches and pains?denies.?Weakness?denies.?Integ.:?Parker?denies.?Scars?denies.?Corns/calluses?denies.?Ingrown nails?denies.?Painful nails?admits.?Open Sores?denies.?Rashes?denies.?Neurologic:?Difficulty sleeping?denies.?Brain disorder?denies.?Numbness?denies.?Balance t rouble?denies.?Confusion?denies.?Fainting/blackouts?denies.?Tingling?denies.?Aleksandar mors?denies.? * Medical History:? * Surgical History:?bladder sl ing wisdom teeth extraction tonsillectomy colonoscopy vein surgery, [facility] bleed [facility] 10/2023 * Hospitalization/Major Diagno stic Procedure:?child * [...] 1 application Externally Twice a day Nystatin-Triamcinolone 723857-0.1 UNIT/GM Cream 1 application Externally Twice a [...] application Externally Twice a day Taking Nystatin-Triamcinolone 217798-6.1 UNIT/GM Cream 1 application Externally Twice a [...] Referral: ?DIABETES EYE EXAM?Dermatologic: ?SKIN FINDINGS:? Skin shows?approximately 90? percent LESS, sign(s) of, erythema, scaling, in a moccasin fashion, no fissure(s) present, B/L , Skin shows sign(s) of, dryness, scaling, in a stocking fashion, no fissure(s) present, B/L , Skin exam reveals Keratotic lesion(s) located at , TA , T5 , SUB MTH (s) , 1 , 5 , Heel(s) , B/L?.?Neurological: ?SENSORY:?Neurological exam demonstrates, reduced light touch sensation, reduced sharp/dull discrimination , reduced vibration sensation, in a stocking fashion, B/L, 5.07 monofilament test performed at plantar aspects of 5 varied sites per foot shows sensation, reduced, B/L , Neurological exam demonstrates, reduced light touch sensation, reduced sharp/dull discrimination , reduced vibration sensation, in a stocking fashion, B/L, 5.07 monofilament test performed at plantar aspects of 5 varied sites per foot shows sensation, reduced, B/L.?Vascular: ?DP PULSES (B):?3/4, B/L , 3/4, B/L.?PT PULSES (B):?3/4, B/L , 3/4, B/L.?CAPILLARY FILL TIME:?immediate, all digits, B/L , immediate, all digits, B/L.?TROPHIC CONDITION-TEXTURE/ELASTICITY/TURGOR/HAIR GROWTH (B):?normal, B/L , normal, B/L.?TEMPERTURE GRADIENT (C):?normal, warm to cool, proximal to distal, B/L, B/L , normal, warm to cool, proximal to distal, B/L, B/L.?PIGMENTATION:?normal, B/L , normal, B/L.?Nails: ?NAILS are:?Elongated, overgrown, dystrophic 1-5 B/L.?General Examination: ?FOOT EXAM:?Footwear Evaluation?Orthopedic: ?FOOTWEAR:?fair condition.? Assessment: * Assessment: 1.?Tinea pedis of both feet - B35.3 (Primary)???Specify :Acute problem, Uncomplicated (3),Rx drug management (4)???2.?Xerosis of skin - L85.3???Specify :Acute problem, Uncomplicated (3)???3.?Type 2 diabetes mellitus with polyneuropathy - E11.42??? Plan: * Treatment: 2.?Xerosis of skin? Start Ammonium Lactate Cream, 12 %, 1 application, Externally to affected areas of dry skin to feet except for between the toes, Twice a day, 30 days, 140, Refills 2.?? * Procedures:?Keratoma Treatment:?Parring or Cutting of Benign Hyperkeratotic Lesion(s)?(-57) More than 4 Lesions - Due to the at risk nature of the patients medical condition as documented in the exam findings, performance of this keratoderma treatment is medically necessary as its management by an unskilled/untrained nonprofessional would put this patients foot and overall health at risk. Therefore, the benign hyperkeratotic lesions, ( 8 ) in total, locations as stated and described in the exam (?TA?,?T5?,?SUB MTH (s)?,?1?,?5?,?Heel(s)?,?B/L?), were pared, and/or cut utilizing a sterile 15 blade, tissue nippers, and/or power dremel instrumentation by the physician of record - [id number].?Nail Reduction:?Nail Reduction?Trimming of dystrophic nails performed to reduce/remove overall nail length and girth, by manual and electrical means with use of a nail nipper and/or dremel, to more viable healthy nail plate or bed tissue 6-10 (G0127).? * Procedure Codes:?G0127 DANY ING DYSTROPHIC NAILS ANY #, Modifiers: XS 47181 TRIM SKIN LESIONS, OVER 4, Modifiers: XS * Preventive Medicine:? ??Counseling:?Discussion:?-13: Office or other [...] encouraged the patient to call the office.?Tinea Pedis:?Given recent successful results to treatment, The patient is to cont the rx cream as directed.?Xerosis:?The patient was counseled on the diagnosis, potential etiologies, and treatment options for their skin condition. We discussed the risks and benefits of each option from performing no treatment, to utilizing OTC topical skin creams/ointments, to utilizing prescription topical creams/ointments, to utilizing customized compounded topical medications and use of nocturnal occlusion with any/all previously detailed therapies. We discussed the advantages and disadvantages of each possible treatment and importance for adherence to all the recommended therapies for optimum success and avoid potential complications such as open sore/infection/possible hospitalization. We discussed the potential effectiveness of each topical preparation as well as each ones possible side effects and/or patient medication interactions. Patient questions re: use, dosage, successful outcomes, and application consistency were reviewed and the patient verbalized that all answers were clearly understood. The patient has decided to apply Rx skin creams to their feet save the interspaces while paying special attention to the heels. Such was sent to their pharmacy at the time of visit.? ??Screening/Special Tests:?Fall Risk?Assessment:?Performed ?Screening:?No falls in the past year ?FALLS: Screening for Future Fall Risk?Have you had two or more falls in the past year??No ?Have you had any falls with injury in the past year??No * Follow Up:?2 Months * Images: * Sign off status: Completed true * Provider:?Yeimi Christopher DPM Date:? Generated for Jace santo/[place]/Cecil on:?04/21/2024 10:04 AM EST History and Physical Notes * HPI (History of Present Illness) Category Sub-Category Detail Notes Category Not es Skin problems Nature: scaling , redness, red spot s , dryness , Location: B/L Duration: several weeks Course: improved with use of cream Treatments: Medication (Ciclopir ox Olamine 0.77 Cream) At Risk footcare Pt States Last PCP Visit: Date: 4 Examination Category Sub-Category Detail Notes Category Not es Neurological SENSORY: Neurological exa m demonstrates, reduced light touch sensation, reduced sharp/dull discrimination , reduced vibration sensation, in a stocking fashion, B/L, 5.07 monofilament test performed at plantar aspects of 5 varied sites per foot shows sensation, reduced, B/L , Neurological exam demonstrates, reduced light touch sensation, reduced sharp/dull discrimination , reduced vibration sensation, in a stocking fashion, B/L, 5.07 monofilament test performed at plantar aspects of 5 varied sites per foot shows sensation, reduced, B/L Dermatologic SKIN FINDINGS: Skin shows appro ximately 90 percent LESS, sign(s) of, erythema, scaling, in a moccasin fashion, no fissure(s) present, B/L , Skin shows sign(s) of, dryness, scaling, in a stocking fashion, no fissure(s) present, B/L , Skin exam reveals Keratotic lesion(s) located at , TA , T5 , SUB MTH (s) , 1 , 5 , Heel(s) , B/L Orthopedic FOOTWEAR: fair condition General Examination FOOT EXAM: Lower Extrem ity Neurological Exam performed:: Yes Visual exam of foot performed:: Yes Date: 02/16/2024 Footwear Evaluation Footwear Evaluation performe d:: Yes Ophthalmology Referral DIABETES EYE EXAM Procedure Perform ed:: Yes ?Date of Exam Performed: 10/21/2023 Findings of Diabetic Eye Exam:: no retin opathy Vascular DP PULSES (B): 3/4, B/L , 3/4, B/L PT PULSES (B): 3/4, B/L , 3/4, B/L CAPILLARY FILL TIME: immediate, all digi ts, B/L , immediate, all digits, B/L TEMPERTURE GRADIENT (C): normal, warm to cool, proximal to distal, B/L, B/L , normal, warm to cool, proximal to distal, B/L, B/L TROPHIC CONDITION-TEXTURE/ELASTICITY/TURGOR/HAIR GROWTH (B): normal, B/L , normal, B/L PIGMENTATION: normal, B/L , normal , B/L Nails NAILS are: Elongated, overgrown, dystro phic 1-5 B/L
== END 2024-04-21 09:41 | disposition home or self-care (01) ==
PROVIDERS: PCP Internal Medicine; Visit Provider Surgery
DX: N60.81 Other benign mammary dysplasias of right breast (principal)
CPT/HCPCS: 99213

== ENCOUNTER → 2024-04-21 09:19 | Outpatient (BNVA) | payer MEDICARE, SELFPAY | PROVIDERS: PCP Internal Medicine; Visit Provider Surgery | DX: N60.81 Other benign mammary dysplasias of right breast (principal) | CPT/HCPCS: 99212 ==

== ENCOUNTER 2024-06-02 14:19 | Outpatient (REF) | payer MEDICARE, OTHER, SELFPAY ==
--- OUTSIDE RECORDS SUMMARY | 2024-06-02 15:48 | XMS_ITS ---
Author Organization [facility] [place] Address [address] [place] [address] Care Team Providers Care Wire Drawing Machine Tender Name Role Phone Nilson Givens MD Primary Care Provider Yeimi Durand [phone] REASON FOR VISIT prior auth for pharmacy Encounters Encounter Location Date Provider Diagnosis [facility] [address] [place] [address] 02/18/2024 Yeimi Christopher Plan Of Treatment Next Appt Details Provider Name:Yeimi salazar, 06/14/2024 10:00:00 AM, [address] [place], [address], Progress Notes * Rosanna ROWLANDaDOB:1955 (68 yo F)Acc No.[id number]:02/18/2024 Patient:?Cande ROWLAND :1955???Age:68 Y???Sex:Female Address:[address] [place], [address] * true * Date:? Generated for Printi gal/Douglas/eTransmitting on:?06/02/2024 03:48 PM EDT
--- OUTSIDE RECORDS SUMMARY | 2024-06-02 15:49 | XMS_ITS | Patient Health Record ---
Author [facility] Address [address] [facility] [place] [address] Care Team Providers Care Acid Tank Liner Name Role Phone Nilson Givens MD Primary Care Provider Yeimi Durand Unavailable [phone] Allergies Allergen (clinical drug ingredient) Drug/Non Drug [...] Notes Start Date End Date Status Nystatin-Triamcinolone 933049-1.1 UNIT/GM 1 application Externally Twice a day [...] Problem Status W/U Status Risk Notes Problem 64837947 Type 2 diabetes mellitus with polyneuropathy (E11.42) Active confirmed Vital Signs Blood pressure diastolic 70 mm Hg 02/16/2024 Height 5ft5in in 02/16/2024 Blood pressure systolic 130 mm Hg 02/16/2024 Weight 230 lbs 02/16/2024 BMI 38.27 kg/m2 02/16/2024 Encounters Encounter Location Date [facility] [address] 08/11/2023 Yeimi Perica Xerosis of skin L85. 3 and Type 2 diabetes mellitus with polyneuropathy E11.[address] [address] 12/01/2023 Yeimi Perica Xerosis of skin L85. 3 and Type 2 diabetes mellitus with polyneuropathy E11.[address] [address] 01/20/2024 Yeimi Perica Tinea pedis of both feet B35.3 [facility] [address] [place] [address] 02/16/2024 Yeimi Timoa Tinea pedis of both feet B35.3 ; Xerosis of skin L85.3 and Type 2 diabetes mellitus with polyneuropathy E11.[address] [address] 06/30/2023 [facility] Timoa [facility] [address] [place] [address] 01/18/2024 [facility] Tim[facility] [address] 01/18/2024 Yeimi Green[facility] [address] 02/18/2024 Yeimi Christopher Assessments Encounter Date Diagnosis [...] Details Provider Name:Yeimi salazar, 06/14/2024 10:00:00 AM, [address] [place] [address], [phone], Insurance Providers Payer Name Payer Address Payer Phone Subscriber Number Group Number Insured Name Patient Relationship to Insured Coverage Start Date Coverage End Date Medicare National Govt Sv[employer] [address] [place] [address] [phone] [id number] Cande De La O Self - patient is the insured [facility] [address] [place] [address] [id number] Cande De La O Self - patient is the insured Medical (General) History Medical History History ICD Code type II diabetes Headaches/Migraines High blood pressure Measles Mumps Chicken pox Cholesterol Surgical History Surgery Date(Month/Year) bladder sling wisdom teeth extraction tonsillectomy colonoscopy vein surgery, cauterize 07/2023 [facility] [place]- brain bleed 06/2023 [facility] 10/2023 Hospitalization History Reason Date(Month/Year) child
--- OUTSIDE RECORDS SUMMARY | 2024-06-02 15:49 | XMS_ITS | Patient Health Record ---
Author Organization [facility] Address [address] [place] [address] Care Team Providers Care Autocad Operator Name Role Phone Nilson Givens MD Primary Care Provider Kevyn Echeverria Jr Unavailable Allergies Allergen (clinical drug ingredient) Drug/Non Drug Allergy documented on EMR Reaction Allergy Type Onset Date Status levofloxacin Levofloxacin Unknown Drug Allergy A ctive Reason For Referral No Information Medications Medication [...] the procedure for 1 day 08/05/2021 Active Immunizations Vaccine Route Administration Date Status Comme nts Influenza Unknown 01/16/2021 Administered Problems Problem Type SNOMED Code ICD Code Onset Dates Problem Status W/U Status Risk Notes Problem 536297232 Colon cancer screening (Z12.11) Active confirmed Problem 01008670 Encounter for other preprocedural examination (Z01.818) Active confirmed Problem 548508568551176 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.84) Active confirmed Problem History of polyp of colon (728533110) History of colonic polyps (Z86.010) Active confirmed Plan Of Treatment Future Test Test Name Order Date COLONOSCOPY 03/05/2016 COLONOSCOPY 08/05/2021 Insurance Providers Payer Name Payer Address Payer Phone Subscriber Number Group Number Insured Name Patient Relationship to Insured Coverage Start Date Coverage End Date MEDICARE OF [place] [address] [place] [address] [id number] STEWART FISHER Self - patient is the insured [employer] ATTN CLAIMS [address] [place] [address] [phone] [id number] STEWART FISHER Self - patient is the insured Medical (General) History Medical History History ICD Code Colonoscopy 05/30/16, tubular adenoma, fi ve-year followup 05/21 back problems gastroesophageal reflux disease hypertension elevated cholesterol elevated blood sugar Surgical History Surgery Date(Month/Year) bladder suspension
--- OUTSIDE RECORDS SUMMARY | 2024-06-02 15:49 | XMS_ITS ---
Author Organization [facility] Address [address] [place] [address] Care Team Providers Care Pyrotechnic Mixer Name Role Phone Tosha CHACON, Nilson Primary Care Provider Yeimi Durand [phone] Arndt Encounters Encounter Location Date Provider Diagnosis [address] [address] 05/24/2024 Yeimi Christopher Plan Of Treatment Next Appt Details Provider Name:Yeimi salazar, 06/14/2024 10:00:00 AM, [address] [place], [address], Progress Notes * Rosanna ROWLANDaDOB:1955 (68 yo F)Acc No.[id number]:05/24/2024 Progress Note Patient:?Cande ROWLAND Provider:?Yeimi Christopher DPM :1955???Age:68 Y???Sex:Female D ate:05/24/2024 Address: [address] [place] Pcp:Nilson Givens MD Subjective: * Chief Complaints: * ???1. Dr Arndt. * Medical History:? Objective: * Vitals:? Assessment: Plan: * Treatment: * Images: * The named appointment provid er may or may not be the originator of this progress note, and it is not deemed complete until electronically signed by the appointment provider. Sign off status: Pending * Provider:?Yeimi Christopher DPM Date:? Generated for Jace santo/Douglas/Cecil on:?06/02/2024 03:49 PM EDT
== END 2024-06-02 14:20 | disposition home or self-care (01) ==
LOC: HO.MAMMO 14:19
PROVIDERS: PCP Internal Medicine; Referring Provider Internal Medicine; Visit Provider Internal Medicine
DX: Z12.31 Encounter for screening mammogram for malignant neoplasm of breast (principal)
CPT/HCPCS: 77063; 77067

== ENCOUNTER → 2024-06-02 14:30 | Outpatient (BNV) | payer MEDICARE, OTHER, SELFPAY | PROVIDERS: PCP Internal Medicine; Referring Provider Internal Medicine; Visit Provider Internal Medicine | DX: Z12.31 Encounter for screening mammogram for malignant neoplasm of breast (principal) | CPT/HCPCS: 77063; 77067 ==

== ENCOUNTER 2024-08-04 08:48 | Outpatient (AMB) | payer MEDICARE, SELFPAY ==
[2024-08-04 08:45] VITALS: BP 138/76; PULSE 73; TEMP 36.6; O2SAT 97; BMI 39.5
--- NOTE | 2024-08-04 08:45 | MHC.PC.OV ---
Vital Signs 08/04/24 08:45 Height 5 ft 4 in Weight 230 lb BMI 39.5 BP 138/76 Blood Pressure Location Lt brachial Position Sitting Pulse 73 Pulse Source Pulse Oximeter Temp 97.9 F Temp Source Axillary Pulse Oximetry (%) 97 Oxygen Delivery Method Room Air Intake Visit Reasons: Routine Security Installation Sales Technician Required: No Accompanied by: Self / Same As Patient Allergies levofloxacin [LEVOFLOXACIN] Allergy (Severe, Verified 08/04/24 08:45) DIFFICULTY BREATHING Tobacco use date assessed: 08/04/24 Fall risk assessment: No Falls in past year Last assessed Fall Risk: 08/04/24 Dental Screening Dental Screen Date: 08/04/24 Did you have a dental visit in the last 12 months?: Yes Did you have a dental problem in the last 6 months where you did not have access to dental care?: No HPI HPI Comments History of Present Illness Details The patient is a 68 year old female with a past medical history of subdural, htn, copd, MDD, asthma presenting for follow up. Last seen by pcp in 07/2023 DM-On metformin. Last A1C 7.6. Not checking sugars CV: on lisinopril, simvastatin. 138/76. Denies chest pain, exertional dyspnea Chronic cough: Denies heartburn. +rhinitis. Has been to breakfast server in the past Mammo 05/2024 Colon 10/02/2021 Review Appraiser:Johan STILES CONSTITUTIONAL: Denies weight loss, fever and chills. HEENT: Denies changes in vision and hearing. RESPIRATORY: Denies SOB and cough. CV: Denies palpitations and CP GI: Denies abdominal pain, nausea, vomiting and diarrhea. : Denies dysuria and urinary frequency. MSK: Denies new myalgia and joint pain. SKIN: Denies rash and pruritus. NEUROLOGICAL: Denies headache PSYCHIATRIC: Denies recent changes in mood. PHYSICAL EXAM: GENERAL: Alert and oriented x 3. NAD EYES: EOMI. Anicteric. HENT: Moist mucous membranes. No scleral icterus. No cervical lymphadenopathy. LUNGS: Clear to auscultation bilaterally. CARDIOVASCULAR: Regular rate and rhythm. No murmur. No JVD. ABDOMEN: Soft, non-tender +bs EXTREMITIES: No edema. Non-tender. SKIN: No rashes or lesions. Warm. NEUROLOGIC: No focal neurological deficits. CN II-XII grossly intact PSYCHIATRIC: Cooperative. Appropriate mood and affect [facility] Medical History Blood cholesterol increased compared with prior measurement HTN (hypertension) HTN (hypertension) Diabetes Surgical History Hx of dilation and curettage (10/2023) Hx of subdural hematoma (07/2023) Hx of wisdom tooth extraction History of pubovaginal sling Hx of colonoscopy Family History Mother No problems noted. Father No problems noted. Social History Housing: House Patient Tobacco Use Status: Never used Tobacco e-Cigarette/Vaping Use: Never Used service: No Current occupational status: retired Cognitive needs: No Hearing needs: No Vision needs: Yes (rx glasses) Questionnaire PHQ-9 Over the last 2 weeks, how often have you been bothered by any of the following problems? 1. Little interest or pleasure in doing things: not at all 2. Feeling down, depressed, or hopeless: not at all 3. Trouble falling or staying asleep, or sleeping too much: not at all 4. Feeling tired or having little energy: not at all 5. Poor appetite or overeating: not at all 6. Feeling bad about yourself - or that you are a failure or have let yourself or your family down: not at all 7. Trouble concentrating on things, such as reading the newspaper or watching television: not at all 8. Moving or speaking so slowly that other people could have noticed. Or the opposite - being so fidgety or restless that you have been moving around a lot more than usual: not at all 9. Thoughts that you would be better off or of hurting yourself in some way: not at all Total score: 0 Depression Screening Interpretation: Negative Depression Screening Done: Yes 78348 - PHQ-9 Billing: Yes Source: Developed by Drs. Hernesto Lemon, Dodie Torres, Casimiro Hector and colleagues, with an educational cece from [employer]. Thrive Questionnaire Date Thrive assessed: 08/04/24 I am a: Patient Within the past 12 months, did the food you bought not last and you didn't have the money to get more?: Never true Within the past 12 months, did you worry whether your food would run out before you got money to buy more?: Never true Do you have trouble paying for medicines?: No Do you have trouble getting transportation to medical appointments?: No Do you have trouble paying your heating and electricity bill?: No Do you have trouble taking care of your child, family member or friend?: No Do you have trouble with day-to-day activities such as bathing, preparing meals, shopping, managing finances, etc.?: No Are you currently unemployed and looking for a job?: No Are you interested in more education?: No THRIVE Score: 0 AUDIT C Alcohol Use Questionnaire (AUDIT-C) 1. How often do you have a drink containing alcohol?: Monthly or less 2. How many drinks containing alcohol do you have on a typical day when you are drinking?: 1 or 2 3. How often do you have six or more drinks on one occasion?: Less than monthly Total Score: 2 MADY-7 AMB Questionnaire MADY-7 Date MADY - 7 assessed: 08/04/24 Feeling nervous, anxious, or on edge: 0 = Not at all Not being able to stop or control worryin = Not at all Worrying too much about different things: 0 = Not at all Trouble relaxin = Not at all Being so restless that it is hard to sit still: 0 = Not at all Becoming easily annoyed or irritable: 0 = Not at all Feeling afraid as if something awful might happen: 0 = Not at all Total MADY-7 score (0-4 normal; 5-9 mild; 10-14 moderate; 15-21 severe): 0 Source: Developed by Drs. Hernesto Lemon, Dodie Torres, Casimiro Hector and colleagues, with an educational cece from [employer]. Physical exam (Primary Care) Vital Signs: Last Vital Signs Temp 97.9 F 08/04/24 08:45 Pulse 73 08/04/24 08:45 BP 138/76 08/04/24 08:45 Pulse Ox 97 08/04/24 08:45 Oxygen Delivery Method Room Air 08/04/24 08:45 BMI result Body Mass Index 39.5 Tobacco/Smoking Status: Tobacco use Status Tobacco use date assessed 08/04/24 08/04/24 08:46 Patient Tobacco Use Status Never used Tobacco 08/04/24 08:46 e-Cigarette/Vaping Use Never Used 08/04/24 08:46 PHQ-9: PHQ-9 Score PHQ-9: Total score 0 08/04/24 12:13 Depression Screening Interpretation: Negative Thrive Assessment: Date of Thrive Assessment Date Thrive assessed 08/04/24 08/04/24 08:46 Coding Level of Care Code New Pt Level 4 (72902) Complex EM visit Add On G2211 Diagnoses Primary hypertension I10 Hypertension type: primary hypertension Type 2 diabetes mellitus with hyperglycemia, without long-term current use of insulin E11.65 Diabetes mellitus complication status: with hyperglycemia Diabetes mellitus longterm insulin use: without longterm use Diabetes mellitus type: type 2 Leukocytosis, unspecified type D72.829 Leukocytosis type: unspecified Additional Codes PHQ-9 - 51566 - PHQ-9 Billing: Yes ([id number]) Assessment & Plan Assessment & Plan (1) HTN (hypertension): Code(s): I10 - Essential (primary) hypertension Category: Medical Qualifiers: Hypertension type: primary hypertension Qualified Code(s): I10 - Essential (primary) hypertension (2) Diabetes: Code(s): E11.9 - Type 2 diabetes mellitus without complications Category: Medical Qualifiers: Diabetes mellitus complication status: with hyperglycemia Diabetes mellitus intermodal truck driver insulin use: without longterm use Diabetes mellitus type: type 2 Qualified Code(s): E11.65 - Type 2 diabetes mellitus with hyperglycemia (3) Elevated white blood cell count: Code(s): D72.829 - Elevated white blood cell count, unspecified Category: Medical Qualifiers: Leukocytosis type: unspecified Qualified Code(s): D72.829 - Elevated white blood cell count, unspecified Plan 68 year old to establish care Past medical, surgical, social reviewed Chronic medical conditions stable DM uncontrolled update labs Orders: Orders Complete Blood Count Auto Diff 08/04/24 D72.829 - Elevated white blood cell count, unspecified, E11.9 - Type 2 diabetes mellitus without complications, E78.5 - Hyperlipidemia, unspecified, I10 - Essential (primary) hypertension, R05.3 - Chronic cough LDL Cholesterol Direct 08/04/24 D72.829 - Elevated white blood cell count, unspecified, E11.9 - Type 2 diabetes mellitus without complications, E78.5 - Hyperlipidemia, unspecified, I10 - Essential (primary) hypertension, R05.3 - Chronic cough Hemoglobin A1c 08/04/24 D72.829 - Elevated white blood cell count, unspecified, E11.9 - Type 2 diabetes mellitus without complications, E78.5 - Hyperlipidemia, unspecified, I10 - Essential (primary) hypertension, R05.3 - Chronic cough IRON PROFILE 08/04/24 D72.829 - Elevated white blood cell count, unspecified, E11.9 - Type 2 diabetes mellitus without complications, E78.5 - Hyperlipidemia, unspecified, I10 - Essential (primary) hypertension, R05.3 - Chronic cough Comprehensive Met. Panel 08/04/24 D72.829 - Elevated white blood cell count, unspecified, E11.9 - Type 2 diabetes mellitus without complications, E78.5 - Hyperlipidemia, unspecified, I10 - Essential (primary) hypertension, R05.3 - Chronic cough Pathologist Review - CBC 08/04/24 D72.829 - Elevated white blood cell count, unspecified, E11.9 - Type 2 diabetes mellitus without complications, E78.5 - Hyperlipidemia, unspecified, I10 - Essential (primary) hypertension, R05.3 - Chronic cough Medications: New levocetirizine (Xyzal) 5 mg PO DAILY PRN 90 tabs 3RF allergy symptoms trazodone 50 mg PO BEDTIME 90 tabs 3RF tirzepatide (Mounjaro) for 4 weeks 2.5 mg (0.5 mL) subcut QWEEK 2 mL 1RF
--- OUTSIDE RECORDS SUMMARY | 2024-08-04 09:21 | XMS_ITS | Patient Health Record ---
Author Organization [facility] [place] Address [address] [facility] [place] [address] Care Team Providers Care Delivery Lead Name Role Phone Nilson Givens MD Primary Care Provider Yeimi Durand Unavailable [phone] Allergies Allergen (clinical drug ingredient) Drug/Non Drug Allergy documented on EMR Reaction Allergy Type Onset Date Status levofloxacin Levofloxacin throat swelling, itching Drug Allergy Active Reason For Referral No Information Medications Medication SIG (Take, Route, Frequency, Duration) Notes Start Date End Date Status Simvastatin 20 MG Oral for 90 Active metFORMIN HCl ER 500 MG TAKE 1 TABLET BY MOUTH EVERY DAY Oral for 30 Active Cephalexin 500 MG 1 capsule Orally tony ry 12 hrs for 5 days Not-Taking Omeprazole 20 MG Oral for 90 A ctive Nystatin-Triamcinolone 675830-9.1 UNIT/GM 1 application Externally Twice a day to both feet for 30 days 01/18/2024 Active Ammonium Lactate 12 % 1 application Externally to affected areas of dry skin to feet except for between the toes Twice a day for 30 days Active Vitamin D Active Hydrocortisone 2.5 % 1 application Externally Twice a day for 30 days Active Omeprazole 20 MG 1 capsule 30 minutes before morning meal Orally Once a day for 30 day(s) Active Metoprolol Succinate 25 MG 1 capsule Ora lly Once a day for 30 day(s) Not-Taking Allergy Active Metoprolol Succinate ER 25 MG Oral for 90 Not-Taking Lisinopril 20 MG 1 tablet Orally Once a day Active Ciclopirox Olamine 0.77 % 1 application Externally Twice a day to both feet for 30 days 01/18/2024 Active Simvastatin 20 MG 1 tablet in the evening Orally Once a day for 30 day(s) Active metFORMIN HCl ER 500 MG 1 tablet with ev ening meal Orally Once a day for 30 day(s) Not-Taking Immunizations Vaccine Route Administration Date Status Comme [...] Problem Status W/U Status Risk Notes Problem Acquired hammer toe of right foot (230211876144 9105) Other hammer toe(s) (acquired), right foot (M20.41) Active confirmed Problem Acquired hammer toe of left foot (516634958010 9103) Other hammer toe(s) (acquired), left foot (M20.42) Active confirmed Problem 76480774 Type 2 diabetes mellitus with polyneuropathy (E11.42) Active confirmed Vital Signs Blood pressure diastolic 70 mm Hg 06/14/2024 Height 5ft5in in 06/14/2024 Blood pressure systolic 130 mm Hg 06/14/2024 Weight 230 lbs 06/14/2024 BMI 38.27 kg/m2 06/14/2024 Encounters Encounter Location Date Provider Diagnosis [address] [address] 08/11/2023 Yeimi Perica Xerosis of skin L85. 3 and Type 2 diabetes mellitus with polyneuropathy E11.[address] [address] 12/01/2023 Yeimi Perica Xerosis of skin L85. 3 and Type 2 diabetes mellitus with polyneuropathy E11.[address] [address] 01/20/2024 Yeimi Perica Tinea pedis of both feet B35.[address] [address] 02/16/2024 Yeimi Perica Tinea pedis of both feet B35.3 ; Xerosis of skin L85.3 and Type 2 diabetes mellitus with polyneuropathy E11.[address] [address] 06/14/2024 Yeimi Perica Tinea pedis of both feet B35.3 ; Type 2 diabetes mellitus with polyneuropathy E11.42 ; Other hammer toe(s) (acquired), right foot M20.41 and Other hammer toe(s) (acquired), left foot M20.[address] [address] 01/18/2024 Yeimi Perica [address] [address] 01/18/2024 Yeimi Perica [address] [address] 02/18/2024 Yeimi Greenwooda Assessments Encounter Date Diagnosis (ICD Code) Assessment Notes Treatment Notes Treatment Clinical Notes Section Notes 08/11/2023 Xerosis of skin (ICD-10 - L85.3) 12/01/2023 Xerosis of skin (ICD-10 - L85.3) 01/20/2024 Tinea pedis of both feet (ICD-10 - B35.3) 02/16/2024 Tinea pedis of both feet (ICD-10 - B35.3) 06/14/2024 Type 2 diabetes mellitus with polyneuropathy (ICD-10 - E11.42) 06/14/2024 Tinea pedis of both feet (ICD-10 - B35.3) 06/14/2024 Other hammer toe(s) (acquired), right foot (ICD-10 - M20.41) 02/16/2024 Xerosis of skin (ICD-10 - L85.3) 12/01/2023 Type 2 diabetes mellitus with polyneuropathy (ICD-10 - E11.42) 08/11/2023 Type 2 diabetes mellitus with polyneuropathy (ICD-10 - E11.42) 02/16/2024 Type 2 diabetes mellitus with polyneuropathy (ICD-10 - E11.42) 06/14/2024 Other hammer toe(s) (acquired), left foot (ICD-10 - M20.42) Plan Of Treatment Next Appt Details Provider Name:Yeimi salazar, 08/23/2024 02:45:00 PM, [address] [place], [address], Insurance Providers Payer Name Payer Address Payer Phone Subscriber Number Group Number Insured Name Patient Relationship to Insured Coverage Start Date Coverage End Date Medicare National [employer]t [employer] [address] [place] [address] [id number] Cande De La O Self - patient is the insured [employer] [facility] [address] [place] [address] [phone] [id number] Cande De La O Self - patient is the insured Medical (General) History Medical History History ICD Code type II diabetes Headaches/Migraines High blood pressure Measles Mumps Chicken pox Cholesterol Surgical History Surgery Date(Month/Year) bladder sling wisdom teeth extraction tonsillectomy colonoscopy vein surgery, cauterize 07/2023 [facility]- brain bleed 06/2023 [facility] 10/2023 Hospitalization History Reason Date(Month/Year) child
== END 2024-08-04 09:30 | disposition home or self-care (01) ==
LOC: HO.HMCHD 08:48
PROVIDERS: PCP Internal Medicine; Visit Provider Internal Medicine
DX: I10 Essential (primary) hypertension (principal); E11.65 Type 2 diabetes mellitus with hyperglycemia; D72.829 Elevated white blood cell count, unspecified

== ENCOUNTER → 2024-08-04 08:48 | Outpatient (BNVA) | payer MEDICARE, SELFPAY | PROVIDERS: PCP Internal Medicine; Visit Provider Internal Medicine | DX: I10 Essential (primary) hypertension (principal); E11.65 Type 2 diabetes mellitus with hyperglycemia; D72.829 Elevated white blood cell count, unspecified | CPT/HCPCS: 96127; 99202 ==

== ENCOUNTER 2024-08-04 09:35 | Outpatient (REF) | payer MEDICARE, SELFPAY ==
[2024-08-04 10:40] LABS: MANUAL DIFF FLAG NO
[2024-08-04 10:48] LABS: Basophils Absolute Auto 0.1 X10*3/uL (0.0-0.2); Basophils Percent Auto 0.5 % (0-2); Eosinophils Absolute Auto 0.2 X10*3/uL (0.0-0.4); Eosinophils Percent Auto 1.5 % (0-4); Hematocrit 45.2 % (37.0-47.0); Hemoglobin 14.7 g/dl (12.0-16.0); Imm Gran Abs Auto 0.13 X10*3/uL (0.00-0.03); Imm Gran Pct Auto 0.9 % (0.0-0.4); Lymphocytes Percent Auto 20.1 % (20-40); Mean Corpuscular HGB Conc 32.5 g/dl (31.0-35.0); Mean Corpuscular Hemoglobin 28.5 pg (27.0-33.0); Mean Corpuscular Volume 87.8 fL (80.0-98.0); Mean Platelet Volume 10.9 fL (9.4-12.3); Monocytes Absolute Auto 0.9 X10*3/uL (0.1-1.2); Monocytes Percent Auto 5.7 % (2-11); Neutrophils Absolute Auto 10.7 x10*3/uL (2.0-8.3); Neutrophils Percent Auto 71.3 % (45-73); Platelet Count 290 X10*3/uL (160-400); Red Blood Count 5.15 X10*6/uL (4.20-5.50)
[2024-08-04 10:58] LABS: Alanine Aminotransferase 58 U/L (0-31); Alkaline Phosphatase 84 U/L (39-117); Anion Gap 11 (12-20); Aspartate Amino Transferase 55 U/L (5-31); Bilirubin Total 0.3 mg/dL (0.0-1.0); Blood Urea Nitrogen 13 mg/dL (9-16); Calcium 10.2 mg/dL (8.4-10.2); Carbon Dioxide 28 mmol/L (22-29); Chloride 103 mmol/L (96-108); Estimated Glomerular Filt Rate > 60; Glucose Random 239 mg/dL (60-115); Iron 55 mcg/dL (30-160); Percent Iron Saturation 18 % (15-50); Potassium 4.6 mmol/L (3.3-5.1); Sodium 137 mmol/L (135-145); Total Iron Binding Capacity 303 mcg/dL (228-428); Total Protein 7.7 g/dL (6.5-8.0); Unsaturated Iron Binding 248 ug/dL
[2024-08-04 11:04] LABS: Estimated Average Glucose 237 mg/dL; Hemoglobin A1c % 9.9 % (<6.0)
[2024-08-05 10:14] LABS: LDL Cholesterol Direct 81 mg/dL (<100)
== END 2024-08-04 09:36 | disposition home or self-care (01) ==
LOC: HO.10HDL 09:35
PROVIDERS: Visit Provider Internal Medicine
DX: I10 Essential (primary) hypertension (principal); E11.65 Type 2 diabetes mellitus with hyperglycemia; D72.829 Elevated white blood cell count, unspecified; E78.5 Hyperlipidemia, unspecified; R05.3 Chronic cough
CPT/HCPCS: 80053; 83036; 83540; 83721; 85025; 96127; 99202

== ENCOUNTER 2024-08-31 07:44 | Outpatient (AMB) | payer MEDICARE, SELFPAY ==
--- OUTSIDE RECORDS SUMMARY | 2024-08-31 07:46 | XMS_ITS | Patient Health Record ---
Author Organization [facility] Address [address] [place] [address] Care Team Providers Care Order Entry Representative Name Role Phone Nilson Givens MD Primary [...] Problem Status W/U Status Risk Notes Problem 473566374 Colon cancer screening (Z12.11) Active confirmed Problem 15901668 Encounter for other preprocedural examination (Z01.818) Active confirmed Problem 645568926719119 terminal computer operator (current) use of oral hypoglycemic drugs (Z79.84) Active confirmed Problem History of colonic polyps (Z86.010) Active confirmed Plan Of Treatment Future Test Test Name Order Date COLONOSCOPY 03/05/2016 COLONOSCOPY 08/05/2021 Insurance Providers Payer Name Payer Address Payer Phone Subscriber Number Group Number Insured Name Patient Relationship to Insured Coverage Start Date Coverage End Date MEDICARE OF [place] [address] [place] [address] [id number] STEWART FISHER Self - patient is the insured [employer] CLAIM[employer] [address] [place] [address] [id number] STEWART FISHER Self - patient is the insured Medical (General) History Medical History History ICD Code Colonoscopy 05/30/16, tubular adenoma, fi ve-year followup 05/21 back problems gastroesophageal reflux disease hypertension elevated cholesterol elevated blood sugar Surgical History Surgery Date(Month/Year) bladder suspension
--- OUTSIDE RECORDS SUMMARY | 2024-08-31 07:46 | XMS_ITS | Patient Health Record ---
Author [facility] Address [address] [facility] [place] [address] Care Team Providers Care Cone Treater Name Role Phone Nilson iGvens MD Primary Care Provider Yeimi Durand Unavailable [phone] Allergies Allergen (clinical drug ingredient) Drug/Non Drug Allergy documented on EMR Reaction Allergy Type Onset Date Status levofloxacin Levofloxacin throat swelling, itching Drug Allergy Active Reason For Referral No Information Medications Medication SIG (Take, Route, Frequency, Duration) Notes Start Date End Date Status Simvastatin 20 MG Oral; Duration: 90 Active metFORMIN HCl ER 500 MG TAKE 1 TABLET BY MOUTH EVERY DAY Oral; Duration: 30 Active Cephalexin 500 MG 1 capsule Orally tony ry 12 hrs; Duration: 5 days Not-Taking Omeprazole 20 MG Oral; Duration: 90 Active Nystatin-Triamcinolone 576936-9.1 UNIT/GM 1 application Externally Twice a day to both feet; Duration: 30 days 01/18/2024 Active Ammonium Lactate 12 % 1 application Externally to affected areas of dry skin to feet except for between the toes Twice a day; Duration: 30 days Active Vitamin D Active Hydrocortisone 2.5 % 1 application Externally Twice a day; Duration: 30 days Active Omeprazole 20 MG 1 capsule 30 minutes before morning meal Orally Once a day; Duration: 30 day(s) Active Metoprolol Succinate 25 MG 1 capsule Ora lly Once a day; Duration: 30 day(s) Not-Taking Allergy Active Metoprolol Succinate ER 25 MG Oral; Duration: 90 Not-Takin g Lisinopril 20 MG 1 tablet Orally Once a day Active Ciclopirox Olamine 0.77 % 1 application Externally Twice a day to both feet; Duration: 30 days 01/18/2024 Active Simvastatin 20 MG 1 tablet in the evening Orally Once a day; Duration: 30 day(s) Active metFORMIN HCl ER 500 MG 1 tablet with ev ening meal Orally Once a day; Duration: 30 day(s) Not-Taking Immunizations Vaccine Route Administration [...] Problem Acquired hammer toe of right foot (570377440248 9105) Other hammer toe(s) (acquired), right foot (M20.41) Active confirmed Problem Acquired hammer toe of left foot (835067781392 9103) Other hammer toe(s) (acquired), left foot (M20.42) Active confirmed Problem Type 2 diabetes mellitus with polyneuropathy (E11.42) Active confirmed Vital Signs Blood pressure diastolic 70 mm Hg 06/14/2024 Height 5ft5in in 06/14/2024 Blood pressure systolic 130 mm Hg 06/14/2024 Weight 230 lbs 06/14/2024 BMI 38.27 kg/m2 06/14/2024 Encounters Encounter [facility] Date [facility] [address] [facility] Yeimi Christopher Xerosis of skin L85. 3 and Type 2 diabetes mellitus with polyneuropathy E11.[facility] [address] 01/20/2024 Yeimi Christopher Tinea pedis of both feet B35.[address] [address] 02/16/2024 Yeimi Perica Tinea pedis of both feet B35.3 ; Xerosis of skin L85.3 and Type 2 diabetes mellitus with polyneuropathy E11.[address] [address] 06/14/2024 Yeimi Greenwooda Tinea pedis of both feet B35.3 ; Type 2 diabetes mellitus with polyneuropathy E11.42 ; Other hammer toe(s) (acquired), right foot M20.41 and Other hammer toe(s) (acquired), left foot M20.[address] [address] 01/18/2024 Yeimi Christopher [address] [address] 01/18/2024 Yeimi Christopher [address] [address] 02/18/2024 Yeimi Greenwooda [address] [address] 08/22/2024 Yeimi Christopher Assessments Encounter Date Diagnosis (ICD Code) Assessment Notes Treatment Notes Treatment Clinical Notes Section Notes 12/01/2023 Xerosis of skin (ICD-10 - L85.3) [...] Of Treatment Next Appt Details Provider Name:Yeimi Caro Timo martin, 11/08/2024 02:00:00 PM, [address] [place] [address], [address], Insurance Providers Payer Name Payer Address Payer Phone Subscriber Number Group Number Insured Name Patient Relationship to Insured Coverage Start Date Coverage End Date Medicare National [facility] [employer] [address] [place] [address] [id number] Cande De La O Self - patient is the insured [employer] [address] [place] [address] [id number] Azul miranda Cande Self - patient is the insured Medical (General) History Medical History History ICD Code type II diabetes Headaches/Migraines High blood pressure Measles Mumps Chicken pox Cholesterol Surgical History Surgery Date(Month/Year) bladder sling wisdom teeth extraction tonsillectomy colonoscopy vein surgery, cauterize 07/2023 [facility]- brain bleed 06/2023 [facility] 10/2023 Hospitalization History Reason Date(Month/Year) child
--- NOTE | 2024-08-31 07:48 | A.OFFVIS_ITS ---
Intake Intake Visit Reasons: Type 2 diabetes mellitus with hyperglycemia Analytics Associate Required: No Accompanied by: Self / Same As Patient Allergies levofloxacin (LEVOFLOXACIN) Allergy (Severe, Verified 08/04/24 08:45) DIFFICULTY BREATHING HPI Comprehensive Diabetes Asmnt Most Recent Diabetes Results: Creatinine, (0.5-1.4) 0.80 mg/dL 08/04/24 BUN, (9-16) 13 mg/dL 08/04/24 Sodium, (135-145) 137 mmol/L 08/04/24 Potassium, (3.3-5.1) 4.6 mmol/L 08/04/24 Chloride, (96-108) 103 mmol/L 08/04/24 Carbon Dioxide, (22-29) 28 mmol/L 08/04/24 Calcium, (8.4-10.2) 10.2 mg/dL 08/04/24 AST, (5-31) 55 U/L H 08/04/24 ALT, (0-31) 58 U/L H 08/04/24 Total Protein, (6.5-8.0) 7.7 g/dL 08/04/24 Albumin, (3.5-5.0) 4.0 g/dL 08/04/24 [facility] Medical History Blood cholesterol increased compared with prior measurement HTN (hypertension) HTN (hypertension) Diabetes Surgical History Hx of dilation and curettage (10/2023) Hx of subdural hematoma (07/2023) Hx of wisdom tooth extraction History of pubovaginal sling Hx of colonoscopy Family History Mother No problems noted. Father No problems noted. Social History Housing: House Patient Tobacco Use Status: Never used Tobacco e-Cigarette/Vaping Use: Never Used service: No Current occupational status: retired Cognitive needs: No Hearing needs: No Vision needs: Yes (rx glasses) Assessment & Plan Assessment & Plan (1) Diabetes: Code(s): E11.9 - Type 2 diabetes mellitus without complications Qualifiers: Diabetes mellitus type: type 2 Diabetes mellitus bed bug exterminator insulin use: without bed bug exterminator use Diabetes mellitus complication status: with hyperglycemia Qualified Code(s): E11.65 - Type 2 diabetes mellitus with hyperglycemia Plan: Diabetes self-management education and support participation record Assessment/scale: 1= needs instructed? 2= needs review? 3= comprehend keep point? 4= demonstrates understanding/ competent? NC= Not Covered Topics Learning Objective: Initial visit Initial or post srvc Initial or post srvc Initial or post srvc Initial or post srvc Initial or post srvc Post srvc Comments Pre Edu-assessment/plan Outcome or reassess Outcome or reassess Outcome or reassess Outcome or reassess Outcome or reassess Outcome or reassess Diabetes pathophysiology 1 Healthy eating 2 Being active 1 Taking medication 2 Monitoring glucose 2 Acute complication 1 Chronic complicated 1 Lifestyle and healthy coping 1 Diabetes distress in support 1 ?Diabetes pathophysiology: ?Defined diabetes med identify own type of diabetes; list 3 options for treating diabetes Healthy eating: ?Described effect of type, amount and ?timing of food on blood glucose; list 3 methods for planning meal Being active: ?State effect of exercise on blood glucose level Taking medication: ?State effect of diabetes medications on diabetes; name diabetes medications taking, action and side effects Monitoring glucose: ?Identify recommended blood glucose targets and personal target Acute complication: ?List symptoms and treatment of hyper and hypoglycemia, DKA, sick day guidelines and guidelines for severe weather or situations of crisis and diabetes supply manage Chronic complication: ?To find the relationship of blood glucose levels to long- term complications of diabetes in screening and preventative measures Lifestyle and healthy coping: ?Described lifestyle and healthy coping strategies to rule out diabetes self-management Diabetes to stress and support: ?Recognize Diabetes to stress and be able to identified support options Learning objectives: The patient was provided with verbal and written education on the following topics as outlined below. The patient met all learning objectives and was able to verbalize understanding and provide teach back of education topics discussed . The patient was provided with the opportunity to ask questions and all questions were answered. Patient Assessment Assess patient education level/literacy/barriers, patient's A1c on 08/08/2024 9.9%, patient lives with her . Reports she does the majority of the food shopping and cooking. Stated she only buys junk food when her grandchildren are around. Snacks on fruit and nuts. Patient questions/concerns, patient stated she is interested in reducing or stopping diabetes medications Patient is currently on metformin 2000 mg daily, reports that since increasing to 2000 mg she is experiencing stomach cramps and diarrhea. Instructed patient the importance of taking metformin with food to reduce GI symptoms Mounjaro 2.5 mg weekly, denies nausea vomiting, constipation diarrhea related to Mounjaro What is Diabetes? Pathophysiology How the body produces and uses insulin Identify type of DM Risk factors Signs of Diabetes Brief overview of Diabetes Management Monitoring blood sugar Following a meal plan Regular exercise Maintaining a healthy weight Taking medication as needed Members of the care team (PCP, RN, MA, RD, CDE, cylinder inspector and tester) Blood glucose monitoring When/how often to test Target blood sugar ranges Patient is testing glucose 2 times daily Fastin to 143 mg/dL Post supper: 88 to 137 mg/dL Introduction to Nutrition Importance of healthy diet in managing DM Diet is personalized to individual preference Review patient?s regular diet/food preferences Who prepares meals/does food shopping/ Dining out?/ Barriers? How diet effects glucose Eating 3 balanced meals a day with small, healthy snacks between meals Review food groups Carbohydrates: What is a carbohydrate/Which food/food groups are considered car bohydrates Effect of carbohydrates on blood glucose Portion sizes Reading food labels Basic carb counting (if applicable per nursing assessment) Plate method Meal planning Recommendations: Follow plate method, consistent carbs and read nutritional labels. Smart Goal: Patient will add 10-15 minutes of physical activity 5 days a week between now and next visit Educational Materials: The patient was provided with the following written educational materials: Planning Healthy Meals Handout Patient Response to instructions: Comprehension of Instructions: good Readiness to make changes: Contemplation How confident they feel about making changes: Positive Portions of this note were created using voice recognition software, please excuse any words or phrases that may have been misinterpreted. Patient Instructions: Include regular daily activity. ADA recommends 30 minutes of exercise 5 days a week. Weight loss talk to PCP or Installer Apprentice before starting new plan. Test blood sugar as directed; Fasting and 2hpp largest meal. Watch trends in results. Utilize results and to assess how food, physical activity and medications affect blood sugar results. Bring glucometer or CGM to next visit. Be knowledgeable about diabetes medication, its action, side effects, efficacy, toxicity, prescribed dosage, appropriate timing and frequency of administration, effect of missed and delayed doses and instructions for storage, travel and safety. Problem solving techniques to monitor hypo/hyperglycemia episodes and treatments. Reduce risk reduction behaviors, smoking cessation, regular eye, foot and dental examinations. Coding Level of Care Code Est Pt Level 1 (14186) Diagnoses Type 2 diabetes mellitus with hyperglycemia, without long-term current use of insulin E11.65 Diabetes mellitus type: type 2 Diabetes mellitus bed bug exterminator insulin use: without group home use Diabetes mellitus complication status: with hyperglycemia
== END 2024-08-31 08:28 | disposition home or self-care (01) ==
LOC: HO.ENCR 07:45
PROVIDERS: PCP Internal Medicine; Visit Provider Registered Nurse Diabetes Educator
DX: E11.65 Type 2 diabetes mellitus with hyperglycemia (principal)

== ENCOUNTER → 2024-08-31 07:44 | Outpatient (BNVA) | payer MEDICARE, SELFPAY | PROVIDERS: PCP Internal Medicine; Visit Provider Registered Nurse Diabetes Educator | DX: E11.65 Type 2 diabetes mellitus with hyperglycemia (principal); Z79.84 Long term (current) use of oral hypoglycemic drugs; Z79.85 Long-term (current) use of injectable non-insulin antidiabetic drugs | CPT/HCPCS: 99211 ==

== ENCOUNTER 2024-09-01 09:16 | Outpatient (AMB) | payer MEDICARE, SELFPAY ==
--- NOTE | 2024-09-01 09:17 | MHC.PC.OV ---
Vital Signs 09/01/24 09:20 Height 5 ft 4 in Weight 222 lb BMI 38.1 BP 102/58 L Blood Pressure Location Lt radial Position Sitting Respiration 16 Pulse 60 Pulse Source Pulse Oximeter Temp 97.7 F Temp Source Temporal Artery Scan Pulse Oximetry (%) 97 Oxygen Delivery Method Room Air Intake Visit Reasons: 1 Month F/U Roll Changer Required: No Accompanied by: Self / Same As Patient Allergies levofloxacin (LEVOFLOXACIN) Allergy (Severe, Verified 09/01/24 09:19) DIFFICULTY BREATHING Medication List - Last Reconciled 09/01/24 by Emma Birmingham MD FreeStyle Lancets (lancets) once daily NS FreeStyle Lite Meter (blood-glucose meter) test once daily NS FreeStyle Test (blood sugar diagnostic) Freestyle lite test strips once daily NS levocetirizine (Xyzal) 5 mg PO DAILY PRN lisinopril 20 mg PO DAILY metformin ER 2,000 mg PO BID omeprazole 1 cap PO DAILY simvastatin 1 tab PO BEDTIME tirzepatide (Mounjaro) 2.5 mg (0.5 mL) subcut QWEEK trazodone 50 mg PO BEDTIME Tobacco use date assessed: 08/04/24 Dental Screening Dental Screen Date: 08/04/24 HPI HPI Comments History of Present Illness Details The patient is a 68 year old female with a past medical history of subdural, htn, copd, MDD, asthma presenting for follow up. Last seen by pcp in 07/2023 DM-On metformin-she increased to 2000mg daily from 500mg daily and added mounjaro 2.5 weekly after A1C early July 9.9%. The increase in metformin is bothering her stomach. Her fasting glucose is consistently 90-140 mostly 110s 120s. She saw Jessica hamm certified adapted physical educator. She has lost 8 pounds in one month and 14 over the past 5 months with dietary changes. CV: on lisinopril, simvastatin. Normotensive. Denies chest pain, exertional dyspnea Chronic cough:On xyzal Mammo 05/2024 Colon 10/02/2021 Carpenter Supervisor Wooden Ship:Johan STILES CONSTITUTIONAL: Denies weight loss, fever and chills. HEENT: Denies changes in vision and hearing. RESPIRATORY: Denies SOB and cough. CV: Denies palpitations and CP GI: Denies abdominal pain, nausea, vomiting and diarrhea. : Denies dysuria and urinary frequency. MSK: Denies new myalgia and joint pain. SKIN: Denies rash and pruritus. NEUROLOGICAL: Denies headache PSYCHIATRIC: Denies recent changes in mood. PHYSICAL EXAM: GENERAL: Alert and oriented x 3. NAD EYES: EOMI. Anicteric. HENT: Moist mucous membranes. No scleral icterus. No cervical lymphadenopathy. LUNGS: Clear to auscultation bilaterally. CARDIOVASCULAR: Regular rate and rhythm. No murmur. No JVD. ABDOMEN: Soft, non-tender +bs EXTREMITIES: No edema. Non-tender. SKIN: No rashes or lesions. Warm. NEUROLOGIC: No focal neurological deficits. CN II-XII grossly intact PSYCHIATRIC: Cooperative. Appropriate mood and affect [facility] Medical History Blood cholesterol increased compared with prior measurement HTN (hypertension) HTN (hypertension) Diabetes Surgical History Hx of dilation and curettage (10/2023) Hx of subdural hematoma (07/2023) Hx of wisdom tooth extraction History of pubovaginal sling Hx of colonoscopy Family History Mother No problems noted. Father No problems noted. Social History Housing: House Patient Tobacco Use Status: Never used Tobacco e-Cigarette/Vaping Use: Never Used service: No Current occupational status: retired Cognitive needs: No Hearing needs: No Vision needs: Yes (rx glasses) Questionnaire Thrive Questionnaire Date Thrive assessed: 08/04/24 MADY-7 AMB Questionnaire MADY-7 Date MADY - 7 assessed: 08/04/24 Source: Developed by Drs. Hernesto Lemon, Dodie Torres, Casimiro Hector and colleagues, with an educational cece from [employer]. Physical exam (Primary Care) Vital Signs: Last Vital Signs Temp 97.7 F 09/01/24 09:20 Pulse 60 09/01/24 09:20 Resp 16 09/01/24 09:20 BP 102/58 L 09/01/24 09:20 Pulse Ox 97 09/01/24 09:20 Oxygen Delivery Method Room Air 09/01/24 09:20 BMI result Body Mass Index 38.1 Tobacco/Smoking Status: Tobacco use Status Tobacco use date assessed 08/04/24 09/01/24 09:26 Patient Tobacco Use Status Never used Tobacco 09/01/24 09:26 e-Cigarette/Vaping Use Never Used 09/01/24 09:26 Thrive Assessment: Date of Thrive Assessment Date Thrive assessed 08/04/24 09/01/24 09:26 Coding Level of Care Code Est Pt Level 4 (80109) Diagnoses Type 2 diabetes mellitus with hyperglycemia, without long-term current use of insulin E11.65 Diabetes mellitus type: type 2 Diabetes mellitus senior living insulin use: without senior living use Diabetes mellitus complication status: with hyperglycemia Primary hypertension I10 Hypertension type: primary hypertension 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 Assessment & Plan Assessment & Plan (1) Diabetes: Code(s): E11.9 - Type 2 diabetes mellitus without complications Category: Medical Qualifiers: Diabetes mellitus type: type 2 Diabetes mellitus senior living insulin use: without termination clerk use Diabetes mellitus complication status: with hyperglycemia Qualified Code(s): E11.65 - Type 2 diabetes mellitus with hyperglycemia (2) HTN (hypertension): Code(s): I10 - Essential (primary) hypertension Category: Medical Qualifiers: Hypertension type: primary hypertension Qualified Code(s): I10 - Essential (primary) hypertension (3) 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
[2024-09-01 09:20] VITALS: BP 102/58; PULSE 60; RESP 16; TEMP 36.5; O2SAT 97; BMI 38.1
--- OUTSIDE RECORDS SUMMARY | 2024-09-01 09:33 | XMS_ITS | Patient Health Record ---
Author Organization [facility] Address [address] [place] [address] Care Team Providers Care Lookback Coordinator Name Role Phone Nilson Givens MD Primary [...] Problem Status W/U Status Risk Notes Problem [id number] Colon cancer screening (Z12.11) Active confirmed Problem [id number] Encounter for other preprocedural examination (Z01.818) Active confirmed Problem [id number] terminal carman (current) use of oral hypoglycemic drugs (Z79.84) Active confirmed Problem History of colonic polyps (Z86.010) Active confirmed Plan Of Treatment Future Test Test Name Order Date COLONOSCOPY 03/05/2016 COLONOSCOPY 08/05/2021 Insurance Providers Payer Name Payer Address Payer Phone Subscriber Number Group Number Insured Name Patient Relationship to Insured Coverage Start Date Coverage End Date MEDICARE OF [place] [address] [place] [address] [id number] STEWART FISHER Self - patient is the insured [employer] ATTN CLAIMS [address] [place] [address] [phone] [id number] STEWART FISHER Self - patient is the insured Medical (General) History Medical History History ICD Code Colonoscopy 05/30/16, tubular adenoma, fi ve-year followup 05/21 back problems gastroesophageal reflux disease hypertension elevated cholesterol elevated blood sugar Surgical History Surgery Date(Month/Year) bladder suspension
--- OUTSIDE RECORDS SUMMARY | 2024-09-01 09:33 | XMS_ITS | Patient Health Record ---
Author Organization [facility] Address [address] [place] [address] Care Team Providers Care Tank Farm Operator Name Role Phone Nilson Givens MD Primary Care Provider Yeimi Durand Unavailable [phone] Allergies Allergen (clinical drug ingredient) Drug/Non Drug [...] 20 MG Oral; Duration: 90 Active Nystatin-Triamcinolone 824269-6.1 UNIT/GM 1 application Externally Twice a day [...] Problem Acquired hammer toe of right foot (640489232283 9105) Other hammer toe(s) (acquired), right foot (M20.41) Active confirmed Problem Acquired hammer toe of left foot (689641151040 9103) Other hammer toe(s) (acquired), left foot (M20.42) Active confirmed Problem Type 2 diabetes mellitus with polyneuropathy (E11.42) Active confirmed Vital Signs Blood pressure diastolic 70 mm Hg 06/14/2024 Height 5ft5in in 06/14/2024 Blood pressure systolic 130 mm Hg 06/14/2024 Weight 230 lbs 06/14/2024 BMI 38.27 kg/m2 06/14/2024 Encounters Encounter Location Date Provider Diagnosis [facility] [address] 12/01/2023 Yiemi Christopher Xerosis of skin L85. 3 and Type 2 diabetes mellitus with polyneuropathy E11.[address] [facility] [address] 01/20/2024 Yeimi Christopher Tinea pedis of both feet B35.[address] [address] 02/16/2024 Yeimi Perica Tinea pedis of both feet B35.3 ; Xerosis of skin L85.3 and Type 2 diabetes mellitus with polyneuropathy E11.[address] [address] 06/14/2024 Yeimi Greenwooda Tinea pedis of both feet B35.3 ; Type 2 diabetes mellitus with polyneuropathy E11.42 ; Other hammer toe(s) (acquired), right foot M20.41 and Other hammer toe(s) (acquired), left foot M20.[address] [address] 01/18/2024 Yeimi Christopher [address] [address] 01/18/2024 Yeimi Christopher [address] [address] 02/18/2024 Yeimi Greenwooda [address] [address] 08/22/2024 Yeimi Christopher Assessments Encounter Date Diagnosis [...] Next Appt Details Provider Name:Yeimi Caro Timo mratin, 11/08/2024 02:00:00 PM, [address] [place] [address], [phone], Insurance Providers Payer Name Payer Address Payer Phone Subscriber Number Group Number Insured Name Patient Relationship to Insured Coverage Start Date Coverage End Date Medicare National [facility] [employer] [address] [place] [address] [id number] Cande De La O Self - patient is the insured [employer] Blue [employer] [address] [place] [address] [id number] Azul miranda Cande Self - patient is the insured Medical (General) History Medical History History ICD Code type II diabetes Headaches/Migraines High blood pressure Measles Mumps Chicken pox Cholesterol Surgical History Surgery Date(Month/Year) bladder sling wisdom teeth extraction tonsillectomy colonoscopy vein surgery, cauterize 07/2023 [facility]- brain bleed 06/2023 [facility] 10/2023 Hospitalization History Reason Date(Month/Year) child
== END 2024-09-01 09:45 | disposition home or self-care (01) ==
LOC: HO.HMCHD 09:16
PROVIDERS: PCP Internal Medicine; Visit Provider Internal Medicine
DX: E11.65 Type 2 diabetes mellitus with hyperglycemia (principal); I10 Essential (primary) hypertension; E11.9 Type 2 diabetes mellitus without complications

== ENCOUNTER → 2024-09-01 09:16 | Outpatient (BNVA) | payer MEDICARE, SELFPAY | PROVIDERS: PCP Internal Medicine; Visit Provider Internal Medicine | DX: E11.65 Type 2 diabetes mellitus with hyperglycemia (principal); I10 Essential (primary) hypertension; J44.9 Chronic obstructive pulmonary disease, unspecified; Z79.84 Long term (current) use of oral hypoglycemic drugs; Z79.899 Other long term (current) drug therapy | CPT/HCPCS: 99212 ==

== ENCOUNTER 2024-09-01 17:09 | Emergency (ER) | payer MEDICARE, SELFPAY ==
--- NOTE | ~2024-09-01 | CT_ITS ---
CLINICAL HISTORY: LLQ pain, tender CT abdomen and pelvis with contrast Comparison: None provided Findings: The lung bases are clear. The gallbladder and solid organs are within normal limits. No renal stones. No bowel obstruction, pneumoperitoneum, or pneumatosis. Scattered diverticulosis of the descending and sigmoid colon with moderate circumferential wall thickening and surrounding mesenteric stranding of the distal descending colon. Pelvic contents unremarkable. Normal appendix. No acute fracture. IMPRESSION: Findings are consistent with acute uncomplicated diverticulitis of the distal descending colon. This document has been electronically signed by: Gideon Wild MD on 09/01/2024 19:23:38
[2024-09-01 17:21] VITALS: BP 134/50; PULSE 63; RESP 16; TEMP 36.8; O2SAT 96; BMI 36.6
--- NOTE | 2024-09-01 17:26 | ED_ITS ---
HPI - General Adult General Chief complaint: Abdominal Pain Stated complaint: lower left extremity pain Time Seen by Provider: 09/01/24 17:42 History of Present Illness ED Provider: Kleber Valenzuela MD HPI narrative: 69-year-old female with left lower abdominal pain no blood in the stool no fever pain worsening throughout the day. No history of kidney stones denies dysuria. She has several year has had pelvic sling without complications. Related Data Home Medications ?Medication ?Instructions ?Recorded ?Confirmed omeprazole 20 mg capsule,delayed 1 cap PO DAILY 09/01/24 release simvastatin 20 mg tablet 1 tab PO BEDTIME 10/29/21 Previous Rx's ?Medication ?Instructions ?Recorded levocetirizine 5 mg tablet (Xyzal) 5 mg PO DAILY PRN a llergy symptoms 08/04/24 #90 tabs tirzepatide 2.5 mg/0.5 mL 2.5 mg (0.5 mL) subcut QWEEK #2 mL 08/04/24 subcutaneous pen injector (Laureen) trazodone 50 mg tablet 50 mg PO BEDTIME #90 tabs FreeStyle Lancets 28 gauge #100 ea 08/09/24 (lancets) FreeStyle Lite Meter #1 ea 08/09/24 (blood-glucose meter) FreeStyle Test (blood sugar #100 ea 08/09/24 diagnostic) lisinopril 20 mg tablet 20 mg PO DAILY #90 tabs 08/01 07/24 amoxicillin 875 mg-potassium 1 tab PO BID 7 days #14 t abs 09/01/24 clavulanate 125 mg tablet metformin 500 mg tablet,extended 1,000 mg (2 x 500 mg) PO BID #360 09/01/24 release 24 hr tabs Allergies Allergy/AdvReac Type Severity Reaction Status Date / Time levofloxacin (LEVOFLOXACIN) Allergy Severe DIFFICULTY Verified 09/01/24 17:25 BREATHING PMFSH Past Medical History Medical History Blood cholesterol increased compared with prior measurement HTN (hypertension) HTN (hypertension) Diabetes Surgical History Hx of dilation and curettage (10/2023) Hx of subdural hematoma (07/2023) Hx of wisdom tooth extraction History of pubovaginal sling Hx of colonoscopy Family History Family History Mother No problems noted. Father No problems noted. Social History Social History Housing: House Patient Tobacco Use Status: Never used Tobacco e-Cigarette/Vaping Use: Never Used Advance Directives: No Advance Directives Information Provided: No Do you have a plan to hurt others: No Plan service: No Current occupational status: retired Cognitive needs: No Hearing needs: No Vision needs: Yes (rx glasses) Physical Exam ED Vital Signs: Vital Signs - 24 hr 09/01/24 17:21 09/01/24 19:52 Temperature 98.2 F 98.2 F Pulse Rate 63 66 Respiratory Rate 16 16 Blood Pressure 134/50 L 105/72 Pulse Oximetry 96 96 Oxygen Delivery Method Room Air Room Air BMI result Body Mass Index 36.6 Const Other: EXAM: Gen: Alert, awake, well appearing, well hydrated. Head: Atraumatic Eyes: Anicteric, Normal conjunctiva. ENT: Moist mucosa, no pallor. ? Neck: Supple. Skin: ?No observable rash or bruising on exposed or examined skin Respiratory: Breathing comfortably, No distress.Clear to auscultation bilaterally, symmetric chest expansion, No wheeze, rales, ronchi. Cardiovascular: Regular rate and rhythm. No murmurs or rub. Well perfused periphery, warm extremities. No edema. ? Abdominal: Moderate tenderness left lower quadrant only without guarding. Soft, no objective distension. No palpable masses or obvious organomegaly. ?No guarding, no rebound tenderness or other peritoneal findings. : No flank tenderness. Neuro: Alert. Gross movement of all extremities intact. ? Psych: Calm. Cooperative. MSK: No grossly visible deformity. Vital signs: See flowsheet Course Course Course Narrative: RME: 69-year-old female presents to ED for left lower quadrant abdominal pain since this morning. Patient denies any urinary symptoms. Positive for left lower quadrant tenderness on palpation labs ordered Medications Administered Discontinued Medications Generic Name Dose Route Start Last Admin Trade Name Freq PRN Reason Stop Dose Admin Acetaminophen 975 mg 09/01/24 18:50 09/01/24 19:45 Acetaminophen 325 Mg Tablet PO 09/01/24 18:51 975 mg ONCE ONE Administration Amoxicillin/Clavulanate Potassium 875 mg 09/01/24 18:50 09/01/24 19:46 Amoxicillin/Potassium Clav 875 Mg Tablet PO 09/01/24 18:51 875 mg ONCE ONE Administration Iohexol 100 ml 09/01/24 18:28 09/01/24 18:32 Iohexol 350 Mg/Ml 100 Ml Infus..Btl IV 09/01/24 18:29 85 ml ONCE ONE Administration Ketorolac Tromethamine 10 mg 09/01/24 17:49 09/01/24 18:16 Ketorolac Tromethamine 15 Mg/Ml Vial IVPUSH 09/01/24 17:50 Not Given ONCE ONE Medical Decision Making Medical Decision Making MDM Narrative: Medical Decision Makin-year-old female with left lower quadrant pain. CT reveals uncomplicated diverticulitis. The patient is hemodynamically stable afebrile and comfortable. Reasonable to start antibiotics with strict return precautions. Testing Interpreted Independently: Not applicable Radiology or Lab testing Results Reviewed: Reviewed lab work with no actionable findings. There was nonspecific leukocytosis she appears to have this frequently on routine blood draws. CT shows uncomplicated diverticulitis Consults: Not Applicable Independent Historians/External Chart Reviews: Not Applicable Social Determinants of Health Impacting MDM/Planning: Not Applicable Lab Data 09/01/24 17:47 09/01/24 17:47 Labs: Lab Results 09/01/24 Range/Units 17:47 WBC 16.5 H (4.8-10.8) X10*3/uL RBC 4.73 (4.20-5.50) X10*6/uL Hgb 13.6 (12.0-16.0) g/dl Hct 41.0 (37.0-47.0) % MCV 86.7 (80.0-98.0) fL MCH 28.8 (27.0-33.0) pg MCHC 33.2 (31.0-35.0) g/dl RDW 13.9 (11.0-16.0) % Plt Count 284 (160-400) X10*3/uL MPV 10.0 (9.4-12.3) fL Immature Gran % (Auto) 0.4 (0.0-0.4) % Neut % (Auto) 68.8 (45-73) % Lymph % (Auto) 23.6 (20-40) % [place]ink[place] % (Auto) 5.7 (2-11) % Eos % (Auto) 1.1 (0-4) % Baso % (Auto) 0.4 (0-2) % Lymph # (Auto) 3.9 (1.2-4.9) X10*3/uL [place]ink[place] # (Auto) 1.0 (0.1-1.2) X10*3/uL Eos # (Auto) 0.2 (0.0-0.4) X10*3/uL Baso # (Auto) 0.1 (0.0-0.2) X10*3/uL Abs Immat Gran (auto) 0.06 H (0.00-0.03) X10*3/uL Absolute Neuts (auto) 11.4 H (2.0-8.3) x10*3/uL Absolute Nucleated RBC 0.000 (0.0-0.012) X10*3/uL Nucleated RBC % (auto) 0.0 (0.0-0.2) /100WBC Sodium 138 (135-145) mmol/L Potassium 4.2 (3.3-5.1) mmol/L Chloride 104 (96-108) mmol/L Carbon Dioxide 24 (22-29) mmol/L Anion Gap 14 (12-20) BUN 9 (9-16) mg/dL Creatinine 0.93 (0.5-1.4) mg/dL Estim Creat Clear Calc 65.9 Estimated GFR 60 Random Glucose 115 (60-115) mg/dL Calcium 9.0 D (8.4-10.2) mg/dL Total Bilirubin 0.2 (0.0-1.0) mg/dL AST 34 H (5-31) U/L ALT 37 H (0-31) U/L Alkaline Phosphatase 64 (39-117) U/L Total Protein 7.1 (6.5-8.0) g/dL Albumin 4.0 (3.5-5.0) g/dL Urine Color Yellow Urine Appearance Clear Urine pH 5.5 (5.0-9.0) Ur Specific [place] 1.010 (1.005-1.025) Urine Protein Negative (Neg-Trace) mg/dL Urine Glucose (UA) Negative (Negative) mg/dL Urine Ketones Negative (Negative) mg/dL Urine Blood Negative (Negative) Urine Nitrite Negative (Negative) Ur Leukocyte Esterase Trace H (Negative) Urine RBC 0-2 (0-2) /HPF Urine WBC 0-5 (0-5) /HPF Ur Squamous Epith Cells 0-2 (0-2) /HPF Urine Bacteria None Seen (None Seen) Hyaline Casts 0-2 (0-2) /LPF Discharge Plan Discharge Clinical Impression: Diverticulitis Patient Disposition: Home, Self-Care Instructions: Diverticulitis (DC) Additional Instructions: _ DISCHARGE DIAGNOSES: Uncomplicated diverticulitis, inflammation/infection of the left-sided colon. HISTORY OF PRESENTATION: Left lower quadrant. EMERGENCY DEPARTMENT COURSE,TESTS, TREATMENTS: While in the ED today [04] DISCHARGE MEDICATIONS: ?[We have made no changes to your regular medication regimen] FOLLOW-UP: ?Call your primary or general physician soon as possible to discuss your symptoms, your ED visit and to discuss follow up plans Call your primary doctor should be seen in the office for re-evaluation within a week INSTRUCTIONS ?& RETURN PRECAUTIONS: If any symptoms change first call your primary physician, if it is after-hours your primary doctors office should have a provider batting machine operator insulation you can speak with. If the symptoms are severe or very concerning to you then call 911 or return to the ED. As we discussed return for worsening pain after total of 48 hours of antibiotics at least. Kleber Valenzuela MD Emergency Physician [facility] Prescriptions: New amoxicillin-pot clavulanate 875-125 mg tablet 1 tab PO BID 7 Days Qty: 14 0RF No Action (DME) FreeStyle Test Strip See Rx Instructions .Route Qty: 100 3RF Rx Instructions: Freestyle lite test strips once daily (DME) blood-glucose meter [FreeStyle Lite Meter] Kit See Rx Instructions .Route Qty: 1 0RF Rx Instructions: test once daily (DME) lancets [FreeStyle Lancets] 28 gauge misc See Rx Instructions .Route Qty: 100 3RF Rx Instructions: once daily lisinopril 20 mg tablet 20 mg PO DAILY Qty: 90 1RF simvastatin 20 mg tablet 1 tab PO BEDTIME omeprazole 20 mg capsule,delayed release(DR/EC) 1 cap PO DAILY levocetirizine [Xyzal] 5 mg tablet 5 mg PO DAILY PRN (Reason: allergy symptoms) Qty: 90 3RF trazodone 50 mg tablet 50 mg PO BEDTIME Qty: 90 3RF Mounjaro 2.5 mg/0.5 mL pen injector 2.5 mg subcut QWEEK Qty: 2 1RF Rx Instructions: for 4 weeks metformin 500 mg tablet extended release 24 hr 1,000 mg PO BID Qty: 360 3RF Interventions: ED Discharge Assessment Last Done: 09/01/24 19:52 Discharge Date/Time: 09/01/24 19:53 Print Language: Kinyarwanda
[2024-09-01 17:54] LABS: MANUAL DIFF FLAG NO
[2024-09-01 17:56] LABS: Hematocrit 41.0 % (37.0-47.0); Hemoglobin 13.6 g/dl (12.0-16.0); Imm Gran Abs Auto 0.06 X10*3/uL (0.00-0.03); Imm Gran Pct Auto 0.4 % (0.0-0.4); Lymphocytes Absolute Auto 3.9 X10*3/uL (1.2-4.9); Mean Corpuscular HGB Conc 33.2 g/dl (31.0-35.0); Mean Corpuscular Hemoglobin 28.8 pg (27.0-33.0); Mean Corpuscular Volume 86.7 fL (80.0-98.0); NRBC Abs Auto 0.000 X10*3/uL (0.0-0.012); NRBC Pct Auto 0.0 /100WBC (0.0-0.2); Platelet Count 284 X10*3/uL (160-400); Red Blood Count 4.73 X10*6/uL (4.20-5.50); White Blood Count 16.5 X10*3/uL (4.8-10.8)
[2024-09-01 17:59] LABS: Appearance Urine Clear; Glucose Urine UA Negative (Negative); PH 5.5 (5.0-9.0); Specific Gravity - Urine 1.010 (1.005-1.025); UMIC TRIGGER UACC YES
[2024-09-01 18:09] LABS: Alanine Aminotransferase 37 U/L (0-31); Albumin Level 4.0 g/dL (3.5-5.0); Alkaline Phosphatase 64 U/L (39-117); Anion Gap 14 (12-20); Aspartate Amino Transferase 34 U/L (5-31); Blood Urea Nitrogen 9 mg/dL (9-16); Calcium 9.0 mg/dL (8.4-10.2); Carbon Dioxide 24 mmol/L (22-29); Chloride 104 mmol/L (96-108); Creatinine Clr Calc Pharmacy 65.9; Estimated Glomerular Filt Rate 60; Potassium 4.2 mmol/L (3.3-5.1); Sodium 138 mmol/L (135-145); Total Protein 7.1 g/dL (6.5-8.0)
[2024-09-01] MEDS: iohexoL 350 MG/ML 100 ML INFUS..BTL IV (18:32)
[2024-09-01 19:52] VITALS: BP 105/72; PULSE 66; RESP 16; TEMP 36.8; O2SAT 96
== END 2024-09-01 19:53 | disposition home or self-care (01) ==
PROVIDERS: Physician Assistant; Emergency Provider Emergency Medicine; PCP Internal Medicine
DX: K57.32 Diverticulitis of large intestine without perforation or abscess without bleeding (principal); R10.2 Pelvic and perineal pain; Z79.899 Other long term (current) drug therapy
CPT/HCPCS: 36415; 74177; 80053; 81001; 85025; 99284; Q9967

== ENCOUNTER → 2024-09-01 17:48 | Outpatient (BNV) | payer MEDICARE, SELFPAY | PROVIDERS: Emergency Provider Emergency Medicine; PCP Internal Medicine; Visit Provider Student in an Organized Health Care Education/Training Program | DX: R10.32 Left lower quadrant pain (principal); R10.814 Left lower quadrant abdominal tenderness | CPT/HCPCS: 74177 ==

== ENCOUNTER 2024-11-07 06:01 | Outpatient (REF) | payer MEDICARE, SELFPAY ==
--- OUTSIDE RECORDS SUMMARY | 2024-05-24 06:00 | XMS_ITS ---
Author Organization [facility] Address [address] [place] [address] Care Team Providers Care Nuclear Equipment Sales Engineer Name Role Phone Tosha CHACON, Nilson Primary Care Provider Yeimi Durand [phone] Arndt Encounters Encounter Location Date Provider Diagnosis [address] [address] 05/24/2024 Yeimi Christopher Plan Of Treatment Next Appt Details Provider Name:Yeimi salazar, 11/08/2024 02:00:00 PM, [address] [place], [address], Progress Notes * Rosanna ROWLANDaDOB:1955 (69 yo F)Acc No.[id number]:05/24/2024 Progress Note Patient: Kelsey ANDRADECande CLEMENTS Provider: Adriana Christopher DPM :1955 A ge:68 Y S ex:Female Date:05/24/2024 Address: [address] [id number] Pcp:Nilson Givens MD Subjective: * Chief Complaints: * 1 . [...] 05/24/2024 Generated for Jace santo/Douglas/Cecil on: 0 11/07/2024 06:06 AM EDT
--- OUTSIDE RECORDS SUMMARY | 2024-08-23 10:45 | XMS_ITS ---
Author Organization [facility] Address [address] [place] [address] Care Team Providers Care Neurological Surgery Teacher Name Role Phone Nilson Givens MD Primary Care Provider Yeimi Durand [phone] Encounters Encounter Location Date Provider Diagnosis [facility] [address] [place] [address] 08/23/2024 Yeimi Christopher Plan Of Treatment Next Appt Details Provider Name:Yeimi salazar, 11/08/2024 02:00:00 PM, [address] [place], [address], Progress Notes * JANETT RosannaaDOB:1955 (69 yo F)Acc No.[id number]:08/23/2024 Progress Note Patient: Kelsey RODASESTEVANRosanna Colea Provider: Adriana Christpoher DPM :1955 A ge:68 Y S ex:Female Date:08/23/2024 Address:[address] [place] Pcp:Nilson Givens MD Subjective: * Chief Complaints: * * Medical History: Objective: * Vitals: Assessment: Plan: * Treatment: * Images: * The named appointment provid er may or may not be the originator of this progress note, and it is not deemed complete until electronically signed by the appointment provider. Sign off status: Pending * Provider: Adriana Christopher, ARMANDO Date: 0 08/23/2024 Generated for Jace santo/Douglas/Cecil on: 0 11/07/2024 06:06 AM EDT
--- OUTSIDE RECORDS SUMMARY | 2024-11-07 06:06 | XMS_ITS | Patient Health Record ---
Author Organization [facility] Address [address] [place] [address] Care Team Providers Care Powder Blender And Pourer Name Role Phone Nilson Givens MD Primary Care Provider Yeimi Durand Unavailable [phone] Allergies Allergen (clinical drug ingredient) Drug/Non Drug [...] 20 MG Oral; Duration: 90 Active Nystatin-Triamcinolone 089532-8.1 UNIT/GM 1 application Externally Twice a day [...] Administration Date Status Comme nts Influenza Unknown 01/02/2021 Administered Influenza Unknown 12/01/2022 Administered COVID-19 Moderna Vaccine Unknown 01/02/2021 Administered 1st 04/24/2020 2nd 05/22/2020 Social History Tobacco Use: Social History Observation [...] Problem Acquired hammer toe of right foot (3918373403143445 ) Other hammer toe(s) (acquired), right foot (M20.41) Active confirmed Problem Acquired hammer toe of left foot (6485477111156525 ) Other hammer toe(s) (acquired), left foot (M20.42) Active confirmed Problem Polyneuropathy due to type 2 diabetes mellitus (123262990) Type 2 diabetes mellitus with polyneuropathy (E11.42) Active confirmed Vital Signs Blood pressure diastolic 70 mm Hg 06/14/2024 Height 5ft5in in 06/14/2024 Blood pressure systolic 130 mm Hg 06/14/2024 Weight 230 lbs 06/14/2024 BMI 38.27 kg/m2 06/14/2024 Encounters Encounter Location Date Provider [facility] [address] 12/01/2023 Yeimi Christopher Xerosis of skin L85. 3 and Type 2 diabetes mellitus with polyneuropathy E11.42 [facility] [address] 01/20/2024 Yeimi Perica Tinea pedis of both feet B35.[address] [address] 02/16/2024 Yeimi Perica Tinea pedis of both feet B35.3 ; Xerosis of skin L85.3 and Type 2 diabetes mellitus with polyneuropathy E11.[address] [address] 06/14/2024 Yeimi Perica Tinea pedis of both feet B35.3 ; Type 2 diabetes mellitus with polyneuropathy E11.42 ; Other hammer toe(s) (acquired), right foot M20.41 and Other hammer toe(s) (acquired), left foot M20.[address] [address] 01/18/2024 Yeimi Perica [address] [address] 01/18/2024 Yeimi Perica [address] [address] 02/18/2024 Yeimi Perica [address] [address] 08/22/2024 Yeimi Christopher Assessments Encounter Date Diagnosis [...] Of Treatment Next Appt Details Provider Name:Yeimi Vania salazar, 11/08/2024 02:00:00 PM, [address] [place], [address], Insurance Providers Payer Name Payer Address Payer Phone Subscriber Number Group Number Insured Name Patient Relationship to Insured Coverage Start Date Coverage End Date Medicare National Govt Svcs Inc [address] [place] [address] [id number] [id number] Cande De La O Self - patient is the insured [employer] [address] [place] [address] [id number] Cande De La O Self - patient is the insured Medical (General) History Medical History History ICD Code type II diabetes Headaches/Migraines High blood pressure Measles Mumps Chicken pox Cholesterol Surgical History Surgery Date(Month/Year) bladder sling wisdom teeth extraction tonsillectomy colonoscopy vein surgery, cauterize 07/2023 [facility]- brain bleed 06/2023 [facility] 10/2023 Hospitalization History Reason Date(Month/Year) child
--- OUTSIDE RECORDS SUMMARY | 2024-11-07 06:06 | XMS_ITS | Patient Health Record ---
Author Organization [facility] Address [address] [place] [address] Care Team Providers Care Flash Welding Machine Operator Name Role Phone Tosha (RETIRED) Nilson CHACON Primary Care Provide r Kevyn Harrison Jr Unavailable Allergies Allergen (clinical drug ingredient) [...] Problem Status W/U Status Risk Notes Problem [id number] Colon cancer screening (Z12.11) Active confirmed Problem 80386313 Encounter for other preprocedural examination (Z01.818) Active confirmed Problem [id number] intermediate (current) use of oral hypoglycemic drugs (Z79.84) Active confirmed Problem History of polyp of colon (situation) (972964089) History of colonic polyps (Z86.010) Active confirmed Plan Of Treatment Future Test Test Name Order Date COLONOSCOPY 03/05/2016 COLONOSCOPY 08/05/2021 Insurance Providers Payer Name Payer Address Payer Phone Subscriber Number Group Number Insured Name Patient Relationship to Insured Coverage Start Date Coverage End Date MEDICARE OF [place] [address] [place] [address] [phone] [id number] [employer] Self - patient is the insured [employer] ATT[employer] CLAIMS [address] [place] [address] [id number] [employer] Self - patient is the insured Medical (General) History Medical History History ICD Code Colonoscopy 05/30/16, tubular adenoma, fi ve-year followup 05/21 back problems gastroesophageal reflux disease hypertension elevated cholesterol elevated blood sugar Surgical History Surgery Date(Month/Year) bladder suspension
[2024-11-07 07:44] LABS: Hemoglobin A1C 159.0909 umol/L; Total Hemoglobin (HGBA1C) 3661.5166 umol/L
[2024-11-07 08:07] LABS: Alanine Aminotransferase 23 U/L (0-31); Albumin Level 4.1 g/dL (3.5-5.0); Alkaline Phosphatase 71 U/L (39-117); Anion Gap 14 (12-20); Aspartate Amino Transferase 22 U/L (5-31); Blood Urea Nitrogen 15 mg/dL (9-16); Calcium 9.5 mg/dL (8.4-10.2); Carbon Dioxide 29 mmol/L (22-29); Chloride 104 mmol/L (96-108); Estimated Glomerular Filt Rate 52; Potassium 4.8 mmol/L (3.3-5.1); Sodium 142 mmol/L (135-145); Total Protein 7.5 g/dL (6.5-8.0)
== END 2024-11-07 06:02 | disposition home or self-care (01) ==
LOC: HO.LAB 06:01
PROVIDERS: PCP Internal Medicine; Visit Provider Internal Medicine
DX: E11.65 Type 2 diabetes mellitus with hyperglycemia (principal)
CPT/HCPCS: 36415; 80053; 83036

== ENCOUNTER 2024-11-10 08:46 | Outpatient (AMB) | payer MEDICARE, SELFPAY ==
--- OUTSIDE RECORDS SUMMARY | 2024-05-24 06:00 | XMS_ITS ---
Author Organization [facility] Address [address] [place] [address] Care Team Providers Care Microfilm Machine Operator Name Role Phone Emma Farias Primary Care Provider Yeimi Klein [phone] Arndt Encounters Encounter Location Date Provider Diagnosis [address] [address] 05/24/2024 Yeimi Christopher Plan Of Treatment Next Appt Details Provider Name:Yeimi salazar, 01/24/2025 03:45:00 PM, [address] [place] [address], [address], Progress Notes * Rosanna ROWLANDaDOB:1955 (69 yo F)Acc No.[id number]:05/24/2024 Progress Note Patient: Kelsey Cande THOMPSON Provider: Adriana Christopher DPM :1955 A ge:68 Y S ex:Female Date:05/24/2024 Address: [address] [id number] Pcp:Emma Farias Subjective: * Chief Complaints: * [...] 05/24/2024 Generated for Jace santo/Douglas/Cecil on: 0 11/10/2024 09:51 AM EDT
--- OUTSIDE RECORDS SUMMARY | 2024-08-23 10:45 | XMS_ITS ---
Author Organization [facility] Address [address] [place] [address] Care Team Providers Care Soybean Specialties Cook Name Role Phone Emma Farias Primary Care Provider Yeimi Klein [phone] Encounters Encounter Location Date Provider Diagnosis [address] [address] 08/23/2024 Yeimi Christopher Plan Of Treatment Next Appt Details Provider Name:Yeimi salazar, 01/24/2025 03:45:00 PM, [address] [place], [address], Progress Notes * Rosanna ROWLANDaDOB:1955 (69 yo F)Acc No.[id number]:08/23/2024 Progress Note Patient: Kelsey ANDRADESTARR Cande Provider: Adriana Christopher DPM :1955 A ge:68 Y S ex:Female Date:08/23/2024 [address] [place] Pcp:Emma Farias Subjective: * Chief Complaints: * [...] 08/23/2024 Generated for Jace santo/Douglas/Cecil on: 0 11/10/2024 09:51 AM EDT
--- OUTSIDE RECORDS SUMMARY | 2024-11-08 10:00 | XMS_ITS ---
Author Organization [facility] Address [address] [place] [address] Care Team Providers Care Advertising Sales Executive Name Role Phone Emma Farisa Primary Care Provider Yeimi Klein Unavailable [phone] Allergies Allergen (clinical drug ingredient) Drug/Non Drug Allergy documented on EMR Reaction Allergy Type Onset Date Status levofloxacin Levofloxacin throat swelling, itching Drug Allergy Active REASON FOR VISIT At Risk Footcare, Skin problem(s) Medications Medication SIG (Take, Route, Frequency, Duration) Notes Start Date End Date Status Metoprolol Succinate 25 MG 1 capsule Orally Once a day; Duration: 30 day(s) Not-Taking metFORMIN HCl ER 500 MG 1 tablet with ev ening meal Orally Once a day; Duration: 30 day(s) Not-Taking Ciclopirox Olamine 0.77 % 1 application Externally Twice a day to both feet; Duration: 30 days 01/18/2024 Active Cephalexin 500 MG 1 capsule Orally tony ry 12 hrs; Duration: 5 days Not-Taking Metoprolol Succinate ER 25 MG Oral; Duration: 90 Not-Takin g Nystatin-Triamcinolone 889419-3.1 UNIT/GM 1 application Externally Twice a day to both feet; Duration: 30 days 01/18/2024 Active Hydrocortisone 2.5 % 1 application Externally Twice a day; Duration: 30 days Active Vitamin D Active Simvastatin 20 MG Oral; Duration: 90 Active Ammonium Lactate 12 % 1 application Externally to affected areas of dry skin to feet except for between the toes Twice a day; Duration: 30 days Active Omeprazole 20 MG 1 capsule 30 minutes before morning meal Orally Once a day; Duration: 30 day(s) Active Simvastatin 20 MG 1 tablet in the evening Orally Once a day; Duration: 30 day(s) Active Allergy Active Omeprazole 20 MG Oral; Duration: 90 Active metFORMIN HCl ER 500 MG TAKE 1 TABLET BY MOUTH EVERY DAY Oral; Duration: 30 1000mg Active Lisinopril 20 MG 1 tablet Orally Once a day Active Mounjaro 5 MG/0.5ML as directed Subcutaneous Active Social History Tobacco Use: Social History Observation Description Date Details (start date - stop date) Never Smoker NA - NA Tobacco Use/Smoking Question Answer Notes Are you a: nonsmoker Additional Findings: Tobacco Non-User Current no n-smoker Tobacco use other than smoking: Question Answer Notes Are you an other tobacco user? No AUDIT-C (Standard) Question Answer Notes Did you have a drink containing alcohol in the p ast year? No Points 0 Interpretation Negative Vital Signs Height 5ft5in in 11/08/2024 Weight 208 lbs 11/08/2024 BMI 34.61 kg/m2 11/08/2024 Blood pressure systolic 129 mm Hg 11/09/19 25 Blood pressure diastolic 70 mm Hg 025 Encounters Encounter Location Date Provider Diagnosis [facility] [address] [place] [address] 11/08/2024 Yeimi Christopher Xerosis of skin L85. 3 ; Type 2 diabetes mellitus with polyneuropathy E11.42 and Tinea pedis of both feet B35.3 Assessments Encounter Date Diagnosis (ICD Code) Assessment Notes Treatment Notes Treatment Clinical Notes Section Notes 11/08/2024 Xerosis of skin (ICD-10 - L85.3) 11/08/2024 Type 2 diabetes mellitus with polyneuropathy (ICD-10 - E11.42) 11/08/2024 Tinea pedis of both feet (ICD-10 - B35.3) Plan Of Treatment Next Appt Details Follow Up: 2 Months, Reason: Provider Name:Yeimi salazar, 01/24/2025 03:45:00 PM, [address] [place], [address], Procedure Notes * Category Sub-Category Detail Notes [...] at risk. Therefore, the benign hyperkeratotic lesions, (6) in total, locations as stated and described in the exam ( plantar medial IPJ, TA , T5 , SUB MTH (s) , 1 , B/L Heel(s) , B/L ), were pared, and/or cut utilizing a sterile 15 blade, tissue nippers, and/or power dremel instrumentation by the physician of record - 19670 Nail Reduction Nail Reduction (-27) Trimming o f all dystrophic nails - Due to the at risk nature of the patients medical condition as documented in the exam findings, performance of this nail treatment is medically necessary as its management by an unskilled/untrained nonprofessional would put this patients foot and overall health at risk. Therefore, the dystrophic nails, in locations as stated and described in the exam ( TA, T1, T2, T3, T4, T5, T6, T7, T8, T9, ), were debrided by the phisician of record to reduce/remove overall nail length and girth, by manual and electrical means with use of a nail nipper and/or dremel, to more viable healthy nail plate or bed tissue - G0127 Progress Notes * Rosanna ROWLANDJamilB:1955 (69 yo F)Acc No.[id number]:11/08/2024 Progress Note Patient: Cande BARTHOLOMEW Provider: Adriana Christopher DPM :1955 A ge:69 Y S ex:Female Date:11/08/2024 Address: [address] [place], [id number] Pcp:Emma Farias Subjective: * Chief Complaints: * A t Risk FootcareSkin problem(s) * HPI: A t Risk footcare: Pt States Last PCP Visit: D ate 0 09/01/2024 S kin problems: Nature: s caling , dryness ,. Location: B /L. Duration: s everal weeks. Course: r ecurrent. Treatments: M edication (Ciclopirox Olamine 0.77 Cream), admits nonadherence to recommended application AMA. * ROS: G eneral/Constitutional: Nausea d enies. V omiting d enies. H bindu Thirst d enies. L oss appetite d enies. C hills d enies. F atigue d enies.?Fever d enies. N ight Sweats d enies. U nexplained weight loss d enies. U nexplained weight gain d enies. H EENTM: Dentures d enies. D izziness d enies. G lasses/contacts d enies. R etinopathy d enies. B lurred/double vision d enies. T MJ?denies. D ischarge/drainage d enies. I mplants d enies. S ore throat d enies. D ental implants d enies. H romel of hearing d enies. D ifficulty chewing/swallowing/speaking d enies. N ose bleeds d enies. S ore mouth d enies. ? R espiratory: On Oxygen d enies. P neumonia/pleurisy d enies.?Bronchitis d enies. E mphysema d enies. C oughing d enies. C ough blood?denies. S hortness of breath d enies. W heezing d enies. C ardiovascular: Pacemaker d enies. M ACRYLIC FABRICATOR d enies. W PW d enies. C HF d enies. H eart attack d enies. S eptal defect d enies. R apid beat d enies. C hest pain d enies. A trial Fib. d enies. M urmur/Palpitations d enies. G astrointestinal: Hemorrhoids d enies. S tomach/Abdominal pain d enies. D ark blood stool d enies. I rritable bowel d enies. C onstipation d enies. D iarrhea d enies. H ematology: Swelling d enies. C lots d enies. V aricose Veins d enies. B ruising d enies. B leeding problem d enies. G enitourinary: Blood urine d enies. F requent/Painfu/urination/bladder control d enies. K idney stones d enies. I nfection (UTI) d enies. N ephropathy d enies. s ex trans dis (STD) d enies. P rostate d enies. M usculoskeletal: Hammertoes d enies. B unions d enies. B ack Pain d enies. M uscle Cramps/ Resting d enies. M uscle cramps / walking d enies.?Generalized aches and pains d enies. W eakness d enies. I nteg.: Parker d enies. S cars d enies. C orns/calluses?denies. I ngrown nails d enies. P ainful nails a dmits. O pen Sores d enies. R ashes d enies. N eurologic: Difficulty sleeping d enies. B rain disorder d enies. N umbness d enies. B alance trouble d enies. C onfusion d enies. F ainting/blackouts d enies. T ingling d enies. T remors d enies. * Medical History: * Surgical History: b ladder sling wisdom teeth extraction tonsillectomy colonoscopy vein surgery, cauterize aystate- brain bleed 4DNC 10/2023 * Hospitalization/Major Diagno stic Procedure: c hild Diverticulitis 09/01/24 * Family History: M other: . F ather: . S iblings: diagnosed with Diabetic - NIDDM. * Social History: T obacco Use: T obacco Use/Smoking A re you a: n onsmoker A dditional Findings: Tobacco Non-User C urrent non-smoker Tobacco use other than smoking A re you an other tobacco user? N o M iscellaneous: C affeine: yes, frequency:, 1-2 cups per day tea decafe. Children: yes, 2. Exercise: yes, walking. Marital status: . Occupation: Retired- payroll. D rug/Alcohol: A ALFREDA-C (Standard) D id you have a drink containing alcohol in the past year? N o P oints 0 I nterpretation N egative * Medications: T akingMounjaro 5 MG/0.5ML Solution Auto-injector as directed Subcutaneous Lisinopril 20 MG Tablet 1 tablet Orally Once a day Simvastatin 20 MG Tablet 1 tablet in the evening Orally Once a day Omeprazole 20 MG Capsule Delayed Release 1 capsule 30 minutes before morning meal Orally Once a day Allergy metFORMIN HCl ER 500 MG Tablet Extended Release 24 Hour TAKE 1 TABLET BY MOUTH EVERY DAY Oral , Notes to Pharmacist: 1000mgOmeprazole 20 MG Capsule Delayed Release Oral Simvastatin 20 MG Tablet Oral Vitamin D Hydrocortisone 2.5 % Cream 1 application Externally Twice a day Nystatin-Triamcinolone 106172-5.1 UNIT/GM Cream 1 application Externally Twice a day to both feet Ammonium Lactate 12 % Cream 1 application Externally to affected areas of dry skin to feet except for between the toes Twice a day Ciclopirox Olamine 0.77 % Cream 1 application Externally Twice a day to both feet Taking Mounjaro 5 MG/0.5ML Solution Auto-injector as directed Subcutaneous Taking Lisinopril 20 MG Tablet 1 tablet [...] 1 TABLET BY MOUTH EVERY DAY Oral , Notes to Pharmacist: 1000mgTaking Omeprazole 20 MG Capsule Delayed Release Oral Taking Simvastatin 20 MG Tablet Oral Taking Vitamin D Taking Hydrocortisone 2.5 % Cream 1 application Externally Twice a day Taking Nystatin-Triamcinolone 810604-9.1 UNIT/GM Cream 1 application Externally Twice a day to both feet Taking Ammonium Lactate 12 % Cream 1 application Externally to affected areas of dry skin to feet except for between the toes Twice a day Taking Ciclopirox Olamine 0.77 % Cream 1 [...] with evening meal Orally Once a day Not-Taking/PRN Metoprolol Succinate 25 MG Capsule ER 24 Hour Sprinkle 1 capsule Orally Once a day Not-Taking/PRN Metoprolol Succinate ER 25 MG Tablet Extended Release 24 Hour Oral Not-Taking/PRN Cephalexin 500 MG Capsule 1 capsule Orally every 12 hrs Medication List reviewed and reconciled with the patient * Allergies: L evofloxacin: throat swelling, itchingyes[Allergies Verified] Objective: * Vitals: H t: 5ft5in, Wt:208, BMI:34.61, Shoe size: 9-9.5, BP:129/70mm Hg, BS: 104, Ht-cm: 165.1 cm, Wt-k.35 kg. * P ast Orders: L ab:HEMOGLOBIN A1C (GLYCOHEMOGLOBIN) (Order Date - 09/01/2024) (Collection Date & Time - 09/01/2024 01:57 PM) Value Reference Range HEMOGLOBIN A1C % (HH) 6.1 * Examination: O phthalmology Referral: DIABETES EYE EXAM P rocedure Performed: Y es D ate of Exam Performed 1 03/21/2023 F indings of Diabetic Eye Exam: n o retinopathy D ermatologic: SKIN FINDINGS: S kin shows sign(s) of, dryness, scaling, in a stocking fashion, no fissure(s) present, B/L , Skin exam reveals Keratotic lesion(s) located at , plantar medial IPJ, T A , T5 , SUB MTH (s) , 1 , B/L Heel(s) , B/L . N eurological: SENSORY: ( Neuro) Neurological exam demonstrates a loss of protective sensation by an absence of tested sensitivity to 5.07 [place] monofilament at 2 or more sites out of 5 total locations, each foot. N ails: NAILS are: E longated, overgrown, dystrophic , TA, T1, T2, T3, T4, T5, T6, T7, T8, T9. G eneral Examination: GENERAL APPEARANCE: Herlinda sainzs a pleasant, alert, well nourished, well-developed, well hydrated individual, who demonstrates proper attention to hygiene/body habitus, and is in no acute distress, Pt serves as own historian for office visit today. ORIENTED: p erson, place, and time. FOOT EXAM: L ower Extremity Neurological Exam performed:?Yes V isual exam of foot performed: Y cresencio D ate 0 11/08/2024 Footwear Evaluation F ootwear Evaluation performed: Y es O rthopedic: MUSCLE STRENGTH: 5 /5 all groups in a symmetrical fashion, B/L. DIGITAL DEFORMITIES: D igital contracture, PIPJ, 2-5 B/L, incompl-reducible with WB, or to push-up test, no over, nor underlapping. FOOTWEAR EVALUATION: f air condition. ? V ascular: DP PULSES (B): 3 /4, B/L. PT PULSES (B): 3 /4, B/L. CAPILLARY FILL TIME: i mmediate, all digits, B/L. TROPHIC CONDITION-TEXTURE/ELASTICITY/TURGOR/HAIR GROWTH (B):?normal, B/L. TEMPERTURE GRADIENT (C): n ormal, warm to cool, proximal to distal, B/L, B/L. PIGMENTATION: n ormal, B/L. Assessment: * Assessment: 1. X erosis of skin - L85.3 (Primary) S pecify :Acute problem, Uncomplicated (3) 2 . T ype 2 diabetes mellitus with polyneuropathy - E11.42 3 .?Tinea pedis of both feet - B35.3 Plan: * Treatment: * Procedures: K eratoma Treatment: Parring or Cutting of Benign Hyperkeratotic Lesion(s) ( -57) More than 4 Lesions - Due to the at risk nature of the patients medical condition as documented in the exam findings, performance of this keratoderma treatment is medically necessary as its management by an unskilled/untrained nonprofessional would put this patients foot and overall health at risk. Therefore, the benign hyperkeratotic lesions, (6) in total, locations as stated and described in the exam ( p lantar medial IPJ, T A , T 5 , S UB MTH (s) , 1 , B/L Heel(s) , B /L ), were pared, and/or cut utilizing a sterile 15 blade, tissue nippers, and/or power dremel instrumentation by the physician of record - 29952. N ail Reduction: Nail Reduction ( -27) Trimming of all dystrophic nails - Due to the at risk nature of the patients medical condition as documented in the exam findings, performance of this nail treatment is medically necessary as its management by an unskilled/untrained nonprofessional would put this patients foot and overall health at risk. Therefore, the dystrophic nails, in locations as stated and described in the exam ( TA, T1, T2, T3, T4, T5, T6, T7, T8, T9, ), were debrided by the phisician of record to reduce/remove overall nail length and girth, by manual and electrical means with use of a nail nipper and/or dremel, to more viable healthy nail plate or bed tissue - G0127. * Procedure Codes: G 0127 TRIMMING DYSTROPHIC NAILS ANY #, Modifiers: XS 53132 TRIM SKIN LESIONS, OVER 4, Modifiers: XS * Preventive Medicine: Counseling: D iscussion: - 13: Office or other outpatient visit for the [...] have encouraged the patient to call the office. Erika Delacruz: T he patient was counseled on the diagnosis, potential [...] during the day, wearing well-ventilated shoes or sandals.. Screening/Special Tests: F all Risk Assessment: P erformed Screening: N o falls in the past year F ALLS: Screening for Future Fall Risk Have you had two or more falls in the past year? N o Have you had any falls with injury in the past year? N o * Follow Up: 2 Months * Images: * Sign off status: Completed true * Provider: Adriana Christopher, DPM Date: 0 11/08/2024 Generated for Jace santo/Douglas/Cecil on: 11/10/2024 09:50 AM EDT History and Physical Notes * HPI (History of Present Illness) Category Sub-Category Detail Notes Category Not es Skin problems Nature: scaling , dryness , Location: B/L Duration: several weeks Course: recurrent Treatments: Medication (Ciclopir ox Olamine 0.77 Cream), admits nonadherence to recommended application AMA At Risk footcare Pt States Last PCP Visit: Date: 5 Examination Category Sub-Category Detail Notes Category Not es Neurological SENSORY: (Neuro) Neurolog ical exam demonstrates a loss of protective sensation by an absence of tested sensitivity to 5.07 [place] monofilament at 2 or more sites out of 5 total locations, each foot Dermatologic SKIN FINDINGS: Skin shows sign( s) of, dryness, scaling, in a stocking fashion, no fissure(s) present, B/L , Skin exam reveals Keratotic lesion(s) located at , plantar medial IPJ, TA , T5 , SUB MTH (s) , 1 , B/L Heel(s) , B/L Orthopedic FOOTWEAR EVALUATION: fair condition DIGITAL DEFORMITIES: Digital contracture , PIPJ, 2-5 B/L, incompl-reducible with WB, or to push-up test, no over, nor underlapping MUSCLE STRENGTH: 5/5 all groups in a symmetrical fashion, B/L General Examination GENERAL APPEARANCE: Reveals a pleasant, alert, well nourished, well-developed, well hydrated individual, who demonstrates proper attention to hygiene/body habitus, and is in no acute distress, Pt serves as own historian for office visit today FOOT EXAM: Lower Extremity Neurological Exa m performed:: Yes Visual exam of foot performed:: Yes Date: 11/08/2024 ORIENTED: person, place, and t eva Footwear Evaluation Footwear Evaluation performe d:: Yes Ophthalmology Referral DIABETES EYE EXAM Procedure Perform ed:: Yes Date of Exam Performed: 01/20/2024 Findings of Diabetic Eye Exam:: no retin opathy Vascular DP PULSES (B): 3/4, B/L PT PULSES (B): 3/4, B/L CAPILLARY FILL TIME: immediate, all digi ts, B/L TEMPERTURE GRADIENT (C): normal, warm to cool, proximal to distal, B/L, B/L TROPHIC CONDITION-TEXTURE/ELASTICITY/TURGOR/HAIR GROWTH (B): normal, B/L PIGMENTATION: normal, B/L Nails NAILS are: Elongated, overg rown, dystrophic , TA, T1, T2, T3, T4, T5, T6, T7, T8, T9
--- NOTE | 2024-11-10 08:54 | A.OFFVIS_ITS ---
Intake Intake Visit Reasons: 60 min Stem Roller Required: No Accompanied by: Self / Same As Patient Allergies levofloxacin (LEVOFLOXACIN) Allergy (Severe, Verified 09/01/24 17:25) DIFFICULTY BREATHING HPI Comprehensive Diabetes Asmnt Most Recent Diabetes Results: Hemoglobin A1c 6.2 % 07/30/18 Microalb/Creat Ratio 61.5 ug/mg cr 09/13/22 Cholesterol 141 mg/dL 09/13/22 HDL Cholesterol 35 mg/dL 09/13/22 Triglycerides 148 mg/dL 09/13/22 Creatinine, (0.5-1.4) 1.04 mg/dL 11/07/24 BUN, (9-16) 15 mg/dL 11/07/24 Sodium, (135-145) 142 mmol/L 11/07/24 Potassium, (3.3-5.1) 4.8 mmol/L 11/07/24 Chloride, (96-108) 104 mmol/L 11/07/24 Carbon Dioxide, (22-29) 29 mmol/L 11/07/24 Calcium, (8.4-10.2) 9.5 mg/dL 11/07/24 AST, (5-31) 22 U/L 11/07/24 ALT, (0-31) 23 U/L 11/07/24 Total Protein, (6.5-8.0) 7.5 g/dL 11/07/24 Albumin, (3.5-5.0) 4.1 g/dL 11/07/24 [facility] Medical History Blood cholesterol increased compared with prior measurement HTN (hypertension) HTN (hypertension) Diabetes Surgical History Hx of dilation and curettage (10/2023) Hx of subdural hematoma (07/2023) Hx of wisdom tooth extraction History of pubovaginal sling Hx of colonoscopy Family History Mother No problems noted. Father No problems noted. Social History Housing: House Patient Tobacco Use Status: Never used Tobacco e-Cigarette/Vaping Use: Never Used service: No Current occupational status: retired Cognitive needs: No Hearing needs: No Vision needs: Yes (rx glasses) Assessment & Plan Assessment & Plan (1) Diabetes: Code(s): E11.9 - Type 2 diabetes mellitus without complications Qualifiers: Diabetes mellitus type: type 2 Diabetes mellitus mcc insulin use: without mcc use Diabetes mellitus complication status: with hyperglycemia Qualified Code(s): E11.65 - Type 2 diabetes mellitus with hyperglycemia Plan: Diabetes self-management education and support participation record Assessment/scale: 1= needs instructed? 2= needs review? 3= comprehend keep point? 4= demonstrates understanding/ competent? NC= Not Covered Topics Learning Objective: Initial visit Initial or post srvc Initial or post srvc Initial or post srvc Initial or post srvc Initial or post srvc Post srvc Comments Pre Edu-assessment/plan Outcome or reassess Outcome or reassess Outcome or reassess Outcome or reassess Outcome or reassess Outcome or reassess Diabetes pathophysiology 1 3 Healthy eating 2 3 Being active 1 3 Taking medication 2 3 Monitoring glucose 2 3 Acute complication 1 3 Chronic complicated 1 3 Lifestyle and healthy coping 1 3 Diabetes distress in support 1 3 ?Diabetes pathophysiology: ?Defined diabetes med identify own type of diabetes; list 3 options for treating diabetes Healthy eating: ?Described effect of type, amount and ?timing of food on blood glucose; list 3 methods for planning meal Being active: ?State effect of exercise on blood glucose level Taking medication: ?State effect of diabetes medications on diabetes; name diabetes medications taking, action and side effects Monitoring glucose: ?Identify recommended blood glucose targets and personal target Acute complication: ?List symptoms and treatment of hyper and hypoglycemia, DKA, sick day guidelines and guidelines for severe weather or situations of crisis and diabetes supply manage Chronic complication: ?To find the relationship of blood glucose levels to long- term complications of diabetes in screening and preventative measures Lifestyle and healthy coping: ?Described lifestyle and healthy coping strategies to rule out diabetes self-management Diabetes to stress and support: ?Recognize Diabetes to stress and be able to identified support options Learning objectives: The patient was provided with verbal and written education on the following topics as outlined below. Assess patient education level/literacy/barriers Patient questions/concerns, Pt's last A1c on 11/07/24 6.1% The patient met all learning objectives and was able to verbalize understanding and provide teach back of education topics discussed . The patient was provided with the opportunity to ask questions and all questions were answered. Topics covered in today?s session included: Medications (If applicable) * Name of medication? * Dosing/administration instructions? * Mechanism of action? * Potential side effects? * Potential adverse reaction and appropriate treatment? * Review onset, peak, duration Assess for concerns re: insurance coverage, cost, barriers to compliance Insulin/Injectables (If applicable) * Storage/care of insulin?? * Injection sites? * Site rotation? * Onset, peak, duration * Drawing up insulin? * Injecting insulin/other injectables? * Sharps disposal Continuous blood glucose monitoring (if applicable) Hypoglycemia and Hyperglycemia * Signs and symptoms? * Causes?? * Treatment? * Preventing hypoglycemia? * When to seek medical attention Target Goals: * Blood glucose targets and how you feel when your blood glucose is in and out of your target ranges. * Monitoring and knowing your A1C. * What can make blood glucose go up and down and preventing high and low blood glucose. * Review of blood sugar targets in expected goal range and outside of expected goal range. * Problem solving and preventing hyper/hypoglycemia. * Using blood sugar results in decision making process in managing diabetes. ?Patient was receptive to information provided and participated in the discussion. Asked?appropriate questions and demonstrated good understanding of the topics discussed.? ? Educational Materials: The patient was provided with the following written educational materials: Target Goal handout Smart Goal Assessment:? Patient will add 10-15 minutes of physical activity 5 days a week between now and next visit Pt met goal 25% Pt met goal less than 25% New Smart Goal:Patient will add 10-15 minutes of physical activity 5 days a week between now and next visit Diabetes Complications: ?Nephropathy :Kidney Disease ?diabetes can damage the kidneys, which is not only can cause them to fail but can make them lose their ability to filter waste from the blood? ?Retinopathy: Eye complications ?Retinopathy? is the commonest long-term complication of diabetes. It is leading cause of blindness Besides, Retinopathy- People with diabetes? are also prone to cataract and Glaucoma. ?Neuropathy: Nerve damage -It involves temporary or permanent damage to nerve tissue. Nerve tissue gets injured mainly due to decreased blood flow and rise in blood glucose levels. This damage can lead to pain , or loss of sensation it can also include sexual dysfunction in both men and women ?Heart Disease And Stroke: People with diabetes are four times more prone to develop Heart disease than those who do not have diabetes ?Depression: Feeling down once in awhile is normal, but some people feel sadness that just won't go away. Life for them seems hopeless. Feeling this way most of the day for two weeks or more is a sign of serious depression ?Gum Disease: People get gum disease when plaque destroys the gums and bone around the teeth. People with diabetes can get gum disease from having high blood glucose levels for a long time Lifestyle * Work * Travel * Stress management * Problem solving Know your goals * A1C * Blood sugar targets * Blood pressure * Cholesterol/LDL Urine microalbumin Educational Materials: The patient was provided with the following written educational materials: ADCES 7 Healthy Behaviors Reducing Risks handout Patient Response to instructions: Comprehension of Instructions: Good Readiness to make changes:? action How confident they feel about making changes:positive Portions of this note were created using voice recognition software, please excuse any words or phrases that may have been misinterpreted. Patient Instructions: Include regular daily activity. ADA recommends 30 minutes of exercise 5 days a week. Weight loss talk to PCP or Non Licensed Operator before starting new plan. Test blood sugar as directed; Fasting and 2hpp largest meal. Watch trends in results. Utilize results and to assess how food, physical activity and medications affect blood sugar results. Bring glucometer or CGM to next visit. Be knowledgeable about diabetes medication, its action, side effects, efficacy, toxicity, prescribed dosage, appropriate timing and frequency of administration, effect of missed and delayed doses and instructions for storage, travel and safety. Problem solving techniques to monitor hypo/hyperglycemia episodes and treatments. Reduce risk reduction behaviors, smoking cessation, regular eye, foot and dental examinations. Coding Level of Care Code Tele Est Pt Level 1 (64350) Diagnoses Type 2 diabetes mellitus with hyperglycemia, without long-term current use of insulin E11.65 Diabetes mellitus type: type 2 Diabetes mellitus mcc insulin use: without mcc use Diabetes mellitus complication status: with hyperglycemia
--- OUTSIDE RECORDS SUMMARY | 2024-11-10 09:51 | XMS_ITS | Patient Health Record ---
Author Organization [facility] Address [address] [place] [address] Care Team Providers Care Field Service Representative Name Role Phone Tosha (RETIRED) Nilson CHACON Primary Care Provide r Kevyn Harrison Jr Unavailable [phone] 2 Allergies Allergen (clinical drug ingredient) Drug/Non Drug [...] Problem Status W/U Status Risk Notes Problem 393412384 Colon cancer screening (Z12.11) Active confirmed Problem 13297205 Encounter for other preprocedural examination (Z01.818) Active confirmed Problem 710160913306401 custodial (current) use of oral hypoglycemic drugs (Z79.84) Active confirmed Problem History of polyp of colon (situation) (205343354) History of colonic polyps (Z86.010) Active confirmed Plan Of Treatment Future Test Test Name Order Date COLONOSCOPY 03/05/2016 COLONOSCOPY 08/05/2021 Insurance Providers Payer Name Payer Address Payer Phone Subscriber Number Group Number Insured Name Patient Relationship to Insured Coverage Start Date Coverage End Date MEDICARE OF [place] [address] [place] [address] [phone] [id number] STEWART FISHER Self - patient is the insured [employer] CLAIMS [address] [place] [address] [id number] STEWART FISHER Self - patient is the insured Medical (General) History Medical History History ICD Code Colonoscopy 05/30/16, tubular adenoma, fi ve-year followup 05/21 back problems gastroesophageal reflux disease hypertension elevated cholesterol elevated blood sugar Surgical History Surgery Date(Month/Year) bladder suspension
--- OUTSIDE RECORDS SUMMARY | 2024-11-10 09:51 | XMS_ITS | Patient Health Record ---
[facility] Address [address] [place] [address] Care Team Providers Care Aviation Safety Equipment Technician Name Role Phone Jarrett, Emma Primary Care Provider Yeimi Klein Unavailable [phone] Allergies Allergen (clinical drug ingredient) Drug/Non Drug Allergy documented on EMR Reaction Allergy Type Onset Date Status levofloxacin Levofloxacin throat swelling, itching Drug Allergy Active Results Component Value Reference Range Notes HEMOGLOBIN A1C (GLYCOHEMOGLO BIN) Reviewed date:11/08/2024 01:58:01 PM Interpretation: Performing Lab: Notes/Report: HEMOGLOBIN A1C % (HH) 6.1 Reason For Referral No Information Medications Medication SIG (Take, Route, Frequency, Duration) Notes Start Date End Date Status Nystatin-Triamcinolone 791759-2.1 UNIT/GM 1 application Externally Twice a day to both feet; Duration: 30 days 01/18/2024 Active Hydrocortisone 2.5 % 1 application Externally Twice a day; Duration: 30 days Active Vitamin D Active Simvastatin 20 MG Oral; Duration: 90 Active Omeprazole 20 MG 1 capsule 30 minutes before morning meal Orally Once a day; Duration: 30 day(s) Active Metoprolol Succinate 25 MG 1 capsule Orally Once a day; Duration: 30 day(s) Not-Taking Simvastatin 20 MG 1 tablet in the evening Orally Once a day; Duration: 30 day(s) Active metFORMIN HCl ER 500 MG 1 tablet with ev ening meal Orally Once a day; Duration: 30 day(s) Not-Taking Lisinopril 20 MG 1 tablet Orally Once a day Active Ciclopirox Olamine 0.77 % 1 application Externally Twice a day to both feet; Duration: 30 days 01/18/2024 Active Mounjaro 5 MG/0.5ML as directed Subcutaneous Active Ammonium Lactate 12 % 1 application Externally to affected areas of dry skin to feet except for between the toes Twice a day; Duration: 30 days Active Allergy Active Omeprazole 20 MG Oral; Duration: 90 Active metFORMIN HCl ER 500 MG TAKE 1 TABLET BY MOUTH EVERY DAY Oral; Duration: 30 1000mg Active Cephalexin 500 MG 1 capsule Orally tony ry 12 hrs; Duration: 5 days Not-Taking Metoprolol Succinate ER 25 MG Oral; Duration: 90 Not-Takin g Immunizations Vaccine Route Administration Date Status Comme nts Influenza Unknown 01/02/2021 Administered Influenza Unknown 12/01/2022 Administered Influenza Unknown 12/01/2023 Administered COVID-19 Moderna Vaccine Unknown 01/02/2021 Administered [...] ast year? No Points 0 Interpretation Negative Problems Problem Type SNOMED Code ICD Code Onset Dates Problem Status W/U Status Risk Notes Problem Acquired hammer toe of right foot (7639900461899 105) Other hammer toe(s) (acquired), right foot (M20.41) Active confirmed Problem Acquired hammer toe of left foot (6939127324953 103) Other hammer toe(s) (acquired), left foot (M20.42) Active confirmed Problem Peripheral sensory neuropathy due to type 2 diabetes mellitus (8377162633960 05) Type 2 diabetes mellitus with polyneuropathy (E11.42) Active confirmed Vital Signs Blood pressure diastolic 70 mm Hg 11/08/2024 Height 5ft5in in 11/08/2024 Blood pressure systolic 129 mm Hg 11/08/2024 Weight 208 lbs 11/08/2024 BMI 34.61 kg/m2 11/08/2024 Encounters Encounter Location Date Provider Diagnosis [address] [address] 12/01/2023 Yeimi Perica Xerosis of skin L85. 3 and Type 2 diabetes mellitus with polyneuropathy E11.[address] [address] 01/20/2024 Yeimi Perica Tinea pedis of both feet B35.[address] [address] 02/16/2024 Yeimi Perica Tinea pedis of both feet B35.3 ; Xerosis of skin L85.3 and Type 2 diabetes mellitus with polyneuropathy E11.[address] [address] 06/14/2024 Yeimi Perica Tinea pedis of both feet B35.3 ; Type 2 diabetes mellitus with polyneuropathy E11.42 ; Other hammer toe(s) (acquired), right foot M20.41 and Other hammer toe(s) (acquired), left foot M20.[address] [address] 11/08/2024 Yeimi Perica Xerosis of skin L85. 3 ; Type 2 diabetes mellitus with polyneuropathy E11.42 and Tinea pedis of both feet B35.[address] [address] 01/18/2024 Yeimi Perica [address] [address] 01/18/2024 Yeimi Perica [address] [address] 02/18/2024 Yeimi Perica [address] [address] 08/22/2024 Yeimi Christopher Assessments Encounter Date Diagnosis (ICD Code) Assessment Notes Treatment Notes Treatment Clinical Notes Section Notes 12/01/2023 Xerosis of skin (ICD-10 - L85.3) 01/20/2024 Tinea pedis of both feet (ICD-10 - B35.3) 06/14/2024 Type 2 diabetes mellitus with polyneuropathy (ICD-10 - E11.42) 06/14/2024 Tinea pedis of both feet (ICD-10 - B35.3) 11/08/2024 Xerosis of skin (ICD-10 - L85.3) 11/08/2024 Type 2 diabetes mellitus with polyneuropathy (ICD-10 - E11.42) 02/16/2024 Tinea pedis of both feet (ICD-10 - B35.3) 06/14/2024 Other hammer toe(s) (acquired), right foot (ICD-10 - M20.41) 11/08/2024 Tinea pedis of both feet (ICD-10 - B35.3) 02/16/2024 Xerosis of skin (ICD-10 - L85.3) 12/01/2023 Type 2 diabetes mellitus with polyneuropathy (ICD-10 - E11.42) 02/16/2024 Type 2 diabetes mellitus with polyneuropathy (ICD-10 - E11.42) 06/14/2024 Other hammer toe(s) (acquired), left foot (ICD-10 - M20.42) Plan Of Treatment Next Appt Details Provider Name:Yeimi salazar, 01/24/2025 03:45:00 PM, [address] [place] [address], [phone], Insurance Providers Payer Name Payer Address Payer Phone Subscriber Number Group Number Insured Name Patient Relationship to Insured Coverage Start Date Coverage End Date Medicare National [employer] [address] [place] [address] [id number] Cande De La O Self - patient is the insured [facility] [facility] [address] [place] [address] [id number] Cande De La O Self - patient is the insured Medical (General) History Medical History History ICD Code type II diabetes Headaches/Migraines High blood pressure Measles Mumps Chicken pox Cholesterol Surgical History Surgery Date(Month/Year) bladder sling wisdom teeth extraction tonsillectomy colonoscopy vein surgery, cauterize 07/2023 [facility]- brain bleed 06/2023 [facility] 10/2023 Hospitalization History Reason Date(Month/Year) Diverticulitis 09/01/24 child
== END 2024-11-10 09:42 | disposition home or self-care (01) ==
LOC: HO.ENCR 08:47
PROVIDERS: PCP Internal Medicine; Visit Provider Registered Nurse Diabetes Educator
DX: E11.65 Type 2 diabetes mellitus with hyperglycemia (principal)
CPT/HCPCS: 99211

== ENCOUNTER 2024-11-11 10:30 | Outpatient (AMB) | payer MEDICARE, SELFPAY ==
--- OUTSIDE RECORDS SUMMARY | 2024-05-24 06:00 | XMS_ITS ---
Author Organization [facility] Address [address] [place] [address] Care Team Providers Care Towel Folder Name Role Phone Emma Farias Primary Care Provider Yeimi Klein [phone] Arndt Encounters Encounter Location Date Provider Diagnosis [address] [address] 05/24/2024 Yeimi Christopher Plan Of Treatment Next Appt Details Provider Name:Yeimi salazar, 01/24/2025 03:45:00 PM, [address] [place] [address], [phone], Progress Notes * Rosanna ROWLANDaDOB:1955 (69 yo F)Acc No.[id number]:05/24/2024 Progress Note Patient: Kelsey Cande THOMPSON Provider: Adriana Christopher DPM :1955 A ge:68 Y S ex:Female Date:05/24/2024 Address: [address] [id number] Pcp:Emma Farias Subjective: * Chief Complaints: * [address] Arndt. * Medical History: Objective: * Vitals: Assessment: Plan: * Treatment: * Images: * The named appointment provid er may or may not be the originator of this progress note, and it is not deemed complete until electronically signed by the appointment provider. Sign off status: Pending * Provider: Adriana Christopher, ARMANDO Date: 0 05/24/2024 Generated for Jace santo/Douglas/Cecil on: 0 11/11/2024 12:08 PM EDT
--- OUTSIDE RECORDS SUMMARY | 2024-08-23 10:45 | XMS_ITS ---
Author Organization [facility] Address [address] [place] [address] Care Team Providers Care Senior Accounting Clerk Name Role Phone Emma Farias Primary Care Provider Yeimi Klein [phone] Encounters Encounter Location Date Provider Diagnosis [address] [address] 08/23/2024 Yeimi Christopher Plan Of Treatment Next Appt Details Provider Name:Yeimi salazar, 01/24/2025 03:45:00 PM, [address] [place], [address], Progress Notes * Rosanna ROWLANDaDOB:1955 (69 yo F)Acc No.[id number]:08/23/2024 Progress Note Patient: Kelsey ANDRADESTARR Cande Provider: Adriana Christopher DPM :1955 A ge:68 Y S ex:Female Date:08/23/2024 [address] [place] Pcp:Emma Farias Subjective: * Chief Complaints: * [...] 08/23/2024 Generated for Jace santo/Douglas/Cecil on: 0 11/11/2024 12:07 PM EDT
--- OUTSIDE RECORDS SUMMARY | 2024-11-08 10:00 | XMS_ITS ---
Author Organization [facility] Address [address] [place] [address] Care Team Providers Care Performance Tester Name Role Phone Emma Farias Primary Care Provider Yeimi Klein Unavailable [phone] Allergies Allergen (clinical drug ingredient) Drug/Non Drug [...] MG Oral; Duration: 90 Not-Takin g Nystatin-Triamcinolone 462997-5.1 UNIT/GM 1 application Externally Twice a day [...] 025 Encounters Encounter Location Date Provider Diagnosis [facility] [address] [place] [address] 11/08/2024 Yeimi Christopher Xerosis of skin L85. [...] Provider Name:Yeimi salazar, 01/24/2025 03:45:00 PM, [address] [place], [address], Procedure Notes * Category Sub-Category Detail Notes [...] instrumentation by the physician of record - 58233 Nail Reduction Nail Reduction (-27) Trimming o [...] Notes * Rosanna ROWLANDJamilB:1955 (69 yo F)Acc No.[id number]:11/08/2024 Progress Note Patient: Cande BARTHOLOMEW Provider: Adriana Christopher DPM :1955 A ge:69 Y S ex:Female Date:11/08/2024 Address: [address] [place], [id number] Pcp:Emma Farias Subjective: * Chief Complaints: * [...] enies. C ardiovascular: Pacemaker d enies. M MASTER BAKER d enies. W PW d enies. C [...] 1 application Externally Twice a day Nystatin-Triamcinolone 486530-6.1 UNIT/GM Cream 1 application Externally Twice a [...] application Externally Twice a day Taking Nystatin-Triamcinolone 305141-7.1 UNIT/GM Cream 1 application Externally Twice a [...] an absence of tested sensitivity to 5.07 [place] monofilament at 2 or more sites out [...] instrumentation by the physician of record - [id number]. N ail Reduction: Nail Reduction ( -27) [...] TRIMMING DYSTROPHIC NAILS ANY #, Modifiers: XS 72078 TRIM SKIN LESIONS, OVER 4, Modifiers: XS [...] 0 11/08/2024 Generated for Jace santo/Douglas/Cecil on: 0 11/11/2024 12:07 PM EDT History and Physical Notes * HPI [...] an absence of tested sensitivity to 5.07 [place] monofilament at 2 or more sites out [...]
--- NOTE | 2024-11-11 10:54 | MHC.PC.OV ---
Vital Signs 11/11/24 10:58 Height 5 ft 5 in Weight 208 lb BMI 34.6 BP 102/52 L Blood Pressure Location Rt brachial Position Sitting Respiration 14 Pulse 59 Pulse Source Pulse Oximeter Temp 98.5 F Temp Source Oral Pulse Oximetry (%) 98 Oxygen Delivery Method Room Air Intake Visit Reasons: LIDIA from [address] [facility] [address] Intake Note: New patient visit Digital Cartographer Required: No Allergies levofloxacin (LEVOFLOXACIN) Allergy (Severe, Verified 09/01/24 17:25) DIFFICULTY BREATHING Tobacco use date assessed: 11/11/24 Fall risk assessment: No Falls in past year Last assessed Fall Risk: 11/11/24 Dental Screening Dental Screen Date: 08/04/24 HPI HPI Comments History of Present Illness Details The patient is a 68 year old female with a past medical history of subdural, htn, copd, MDD, asthma presenting for follow up. Last seen by pcp in 07/2023 DM-On metformin-A1C 6.1 from 9.9%. On metformin 1000mg daily, mounjaro 5mg weekly. Doing excellent. Higher dose of metformin was bothering her stomach. She saw Jessica hamm community educator. Doing well with diet. Eye exam is UTD. Sees podiatry CV: on lisinopril, simvastatin. BP soft. Has gotten some lightheadedness upon standing. Denies chest pain, exertional dyspnea Chronic cough:On xyzal Mammo 05/2024 Colon 10/02/2021 Hat And Cap Sewer:Johan STILES CONSTITUTIONAL: Denies weight loss, fever and chills. HEENT: Denies changes in vision and hearing. RESPIRATORY: Denies SOB and cough. CV: Denies palpitations and CP GI: Denies abdominal pain, nausea, vomiting and diarrhea. : Denies dysuria and urinary frequency. MSK: Denies new myalgia and joint pain. SKIN: Denies rash and pruritus. NEUROLOGICAL: Denies headache PSYCHIATRIC: Denies recent changes in mood. PHYSICAL EXAM: GENERAL: Alert and oriented x 3. NAD EYES: EOMI. Anicteric. HENT: Moist mucous membranes. No scleral icterus. No cervical lymphadenopathy. LUNGS: Clear to auscultation bilaterally. CARDIOVASCULAR: Regular rate and rhythm. No murmur. No JVD. ABDOMEN: Soft, non-tender +bs EXTREMITIES: No edema. Non-tender. SKIN: No rashes or lesions. Warm. NEUROLOGIC: No focal neurological deficits. CN II-XII grossly intact PSYCHIATRIC: Cooperative. Appropriate mood and affect [facility] Medical History Blood cholesterol increased compared with prior measurement HTN (hypertension) HTN (hypertension) Diabetes Surgical History Hx of dilation and curettage (10/2023) Hx of subdural hematoma (07/2023) Hx of wisdom tooth extraction History of pubovaginal sling Hx of colonoscopy Family History Mother No problems noted. Father No problems noted. Social History Housing: House Patient Tobacco Use Status: Never used Tobacco e-Cigarette/Vaping Use: Never Used service: No Current occupational status: retired Cognitive needs: No Hearing needs: No Vision needs: Yes (rx glasses) Questionnaire PHQ-9 Over the last 2 weeks, how often have you been bothered by any of the following problems? 1. Little interest or pleasure in doing things: nearly every day 2. Feeling down, depressed, or hopeless: not at all 3. Trouble falling or staying asleep, or sleeping too much: more than half the days 4. Feeling tired or having little energy: more than half the days 5. Poor appetite or overeating: not at all 6. Feeling bad about yourself - or that you are a failure or have let yourself or your family down: not at all 7. Trouble concentrating on things, such as reading the newspaper or watching television: not at all 8. Moving or speaking so slowly that other people could have noticed. Or the opposite - being so fidgety or restless that you have been moving around a lot more than usual: not at all 9. Thoughts that you would be better off or of hurting yourself in some way: not at all Total score: 7 Depression Screening Interpretation: Positive Depression Screening Follow-up: Declines treatment Depression Screening Done: Yes 63557 - PHQ-9 Billing: Yes Source: Developed by Drs. Hernesto Lemon, Casimiro Cannon and colleagues, with an educational cece from [employer]. Thrive Questionnaire Date Thrive assessed: 11/04/24 I am a: Patient What is your living situation today?: I have a steady place to live Within the past 12 months, did the food you bought not last and you didn't have the money to get more?: Never true Within the past 12 months, did you worry whether your food would run out before you got money to buy more?: Never true Do you have trouble paying for medicines?: No Do you have trouble getting transportation to medical appointments?: No Do you have trouble paying your heating and electricity bill?: No Do you have trouble taking care of your child, family member or friend?: No Do you have trouble with day-to-day activities such as bathing, preparing meals, shopping, managing finances, etc.?: No Are you currently unemployed and looking for a job?: No Are you interested in more education?: No Please select the resources that you would like help with: None Currently or been in a relationship where the following occur: No concerns reported THRIVE Score: 0 AUDIT C Alcohol Use Questionnaire (AUDIT-C) 1. How often do you have a drink containing alcohol?: Never Total Score: 0 MADY-7 AMB Questionnaire MADY-7 Date MADY - 7 assessed: 08/04/24 Feeling nervous, anxious, or on edge: 0 = Not at all Not being able to stop or control worryin = Not at all Worrying too much about different things: 0 = Not at all Trouble relaxin = Not at all Being so restless that it is hard to sit still: 0 = Not at all Becoming easily annoyed or irritable: 0 = Not at all Feeling afraid as if something awful might happen: 0 = Not at all Total MADY-7 score (0-4 normal; 5-9 mild; 10-14 moderate; 15-21 severe): 0 Source: Developed by Drs. Hernesto Lemon, Casimiro Cannon and colleagues, with an educational cece from [employer]. Physical exam (Primary Care) Vital Signs: Last Vital Signs Temp 98.5 F 11/11/24 10:58 Pulse 59 11/11/24 10:58 Resp 14 11/11/24 10:58 BP 102/52 L 11/11/24 10:58 Pulse Ox 98 11/11/24 10:58 Oxygen Delivery Method Room Air 11/11/24 10:58 BMI result Body Mass Index 34.6 Tobacco/Smoking Status: Tobacco use Status Tobacco use date assessed 11/11/24 11/11/24 10:57 Patient Tobacco Use Status Never used Tobacco 11/11/24 10:55 e-Cigarette/Vaping Use Never Used 11/11/24 10:55 PHQ-9: PHQ-9 Score PHQ-9: Total score 7 11/11/24 11:04 Depression Screening Interpretation: Positive Depression Screening Follow-up: Declines treatment Thrive Assessment: Date of Thrive Assessment Date Thrive assessed 11/04/24 11/11/24 10:55 Currently or been in a relationship where the following occur: No concerns reported Coding Level of Care Code Est Pt Level 4 (99790) Complex EM visit Add On G2211 Diagnoses Type 2 diabetes mellitus with hyperglycemia, without long-term current use of insulin E11.65 Diabetes mellitus type: type 2 Diabetes mellitus buttermaker continuous churn insulin use: without buttermaker continuous churn use Diabetes mellitus complication status: with hyperglycemia Primary hypertension I10 Hypertension type: primary hypertension Additional Codes PHQ-9 - 67351 - PHQ-9 Billing: Yes ([id number]) Assessment & Plan Assessment & Plan (1) Diabetes: Code(s): E11.9 - Type 2 diabetes mellitus without complications Category: Medical Qualifiers: Diabetes mellitus type: type 2 Diabetes mellitus buttermaker continuous churn insulin use: without custodial use Diabetes mellitus complication status: with hyperglycemia Qualified Code(s): E11.65 - Type 2 diabetes mellitus with hyperglycemia (2) HTN (hypertension): Code(s): I10 - Essential (primary) hypertension Category: Medical Qualifiers: Hypertension type: primary hypertension Qualified Code(s): I10 - Essential (primary) hypertension Plan Congratulated on interval diabetic control and weight loss. Continue current dose of metformin and mounjaro HTN-decrease lisinopril to 10mg daily as bp has improved with weight loss and dietary changes. Annual eye exams Orders: Orders Complete Blood Count Auto Diff 3 Months D72.829 - Elevated white blood cell count, unspecified, E11.65 - Type 2 diabetes mellitus with hyperglycemia, I10 - Essential (primary) hypertension Comprehensive Met. Panel 3 Months D72.829 - Elevated white blood cell count, unspecified, E11.65 - Type 2 diabetes mellitus with hyperglycemia, I10 - Essential (primary) hypertension Pathologist Review - CBC 3 Months D72.829 - Elevated white blood cell count, unspecified, E11.65 - Type 2 diabetes mellitus with hyperglycemia, I10 - Essential (primary) hypertension Microalbumin, Random (w Creat) 3 Months D72.829 - Elevated white blood cell count, unspecified, E11.65 - Type 2 diabetes mellitus with hyperglycemia, I10 - Essential (primary) hypertension Lipid Panel 3 Months D72.829 - Elevated white blood cell count, unspecified, E11.65 - Type 2 diabetes mellitus with hyperglycemia, I10 - Essential (primary) hypertension Medications: New lisinopril 10 mg PO DAILY 90 tabs 3RF Changed From metformin ER 1,000 mg (2 x 500 mg) PO BID 360 tabs 3RF To metformin ER 1,000 mg (2 x 500 mg) PO DAILY 180 tabs 3RF Refilled Mounjaro (tirzepatide) 5 mg (0.5 mL) subcut QWEEK 6 mL 3RF NS E11.65 - Type 2 diabetes mellitus with hyperglycemia, I10 - Essential (primary) hypertension Discontinued lisinopril Discontinued Reason: Doctor's Order 20 mg PO DAILY 90 tabs 1RF
[2024-11-11 10:58] VITALS: BP 102/52; PULSE 59; RESP 14; TEMP 36.9; O2SAT 98; BMI 34.6
--- OUTSIDE RECORDS SUMMARY | 2024-11-11 12:07 | XMS_ITS | Patient Health Record ---
Author [facility] Address [address] [facility] [place] [address] Care Team Providers Care Organic Preparation Analyst Name Role Phone Jarrett Emma Primary Care Provider Yeimi Klein Unavailable [phone] Allergies Allergen (clinical drug ingredient) Drug/Non Drug [...] Notes Start Date End Date Status Nystatin-Triamcinolone 510860-8.1 UNIT/GM 1 application Externally Twice a day [...] Problem Acquired hammer toe of right foot (5288031633231 105) Other hammer toe(s) (acquired), right foot (M20.41) Active confirmed Problem Acquired hammer toe of left foot (9133317578760 103) Other hammer toe(s) (acquired), left foot (M20.42) Active confirmed Problem Peripheral sensory neuropathy due to type 2 diabetes mellitus (3524130414854 05) Type 2 diabetes mellitus with polyneuropathy (E11.42) Active confirmed Vital Signs Blood pressure diastolic 70 mm Hg 11/08/2024 Height 5ft5in in 11/08/2024 Blood pressure systolic 129 mm Hg 11/08/2024 Weight 208 lbs 11/08/2024 BMI 34.61 kg/m2 11/08/2024 Encounters Encounter Location Date Provider Diagnosis [address] [address] 12/01/2023 Yeimi Perica Xerosis of skin L85. 3 and Type 2 diabetes mellitus with polyneuropathy E11.[address] [address] 01/20/2024 Yeimi Perica Tinea pedis of both feet B35.[address] [address] 02/16/2024 Yeimi Perica Tinea pedis of both feet B35.3 ; Xerosis of skin L85.3 and Type 2 diabetes mellitus with polyneuropathy E11.[address] [address] 06/14/2024 Yeimi Perica Tinea pedis of both feet B35.3 ; Type 2 diabetes mellitus with polyneuropathy E11.42 ; Other hammer toe(s) (acquired), right foot M20.41 and Other hammer toe(s) (acquired), left foot M20.[address] [address] 11/08/2024 Yeimi Perica Xerosis of skin L85. 3 ; Type 2 diabetes mellitus with polyneuropathy E11.42 and Tinea pedis of both feet B35.[address] [address] 01/18/2024 Yeimi Perica [address] [address] 01/18/2024 Yeimi Perica [address] [address] 02/18/2024 Yeimi Perica [address] [address] 08/22/2024 Yeimi Christopher Assessments Encounter Date Diagnosis [...] Details Provider Name:Yeimi salazar, 01/24/2025 03:45:00 PM, [address] [place] [address], [phone], Insurance Providers Payer Name Payer Address Payer Phone Subscriber Number Group Number Insured Name Patient Relationship to Insured Coverage Start Date Coverage End Date Medicare National Govt Svcs Inc [address] [place] [address] [id number] Cande De La O Self - patient is the insured [facility] [address] [place] [address] [phone] [id number] Cande De La O Self - patient is the insured Medical (General) History Medical History History ICD Code type II diabetes Headaches/Migraines High blood pressure Measles Mumps Chicken pox Cholesterol Surgical History Surgery Date(Month/Year) bladder sling wisdom teeth extraction tonsillectomy colonoscopy vein surgery, cauterize 07/2023 [facility]- brain bleed 06/2023 [facility] 10/2023 Hospitalization History Reason Date(Month/Year) Diverticulitis 09/01/24 child
--- OUTSIDE RECORDS SUMMARY | 2024-11-11 12:08 | XMS_ITS | Patient Health Record ---
Author Organization [facility] Address [address] [place] [address] Care Team Providers Care Catcher Helper Name Role Phone Tosha (RETIRED) Nilson CHACON Primary Care Provide r Kevyn Harrison Jr Unavailable [phone] Allergies Allergen (clinical drug ingredient) Drug/Non Drug [...] Problem Status W/U Status Risk Notes Problem 818283256 Colon cancer screening (Z12.11) Active confirmed Problem 36784964 Encounter for other preprocedural examination (Z01.818) Active confirmed Problem 732036986649221 detention (current) use of oral hypoglycemic drugs (Z79.84) Active confirmed Problem History of polyp of colon (situation) (114838416) History of colonic polyps (Z86.010) Active confirmed Plan Of Treatment Future Test Test Name Order Date COLONOSCOPY 03/05/2016 COLONOSCOPY 08/05/2021 Insurance Providers Payer Name Payer Address Payer Phone Subscriber Number Group Number Insured Name Patient Relationship to Insured Coverage Start Date Coverage End Date MEDICARE OF [place] [address] [place] [phone] [id number] STEWART FISHER Self - patient is the insured MED[employer] ATT[employer] CLAIMS [address] [place] [address] [id number] STEWART FISHER Self - patient is the insured Medical (General) History Medical History History ICD Code Colonoscopy 05/30/16, tubular adenoma, fi ve-year followup 05/21 back problems gastroesophageal reflux disease hypertension elevated cholesterol elevated blood sugar Surgical History Surgery Date(Month/Year) bladder suspension
== END 2024-11-11 11:23 | disposition home or self-care (01) ==
LOC: HO.HMCFM 10:31
PROVIDERS: PCP Internal Medicine; Visit Provider Internal Medicine
DX: E11.65 Type 2 diabetes mellitus with hyperglycemia (principal); I10 Essential (primary) hypertension

== ENCOUNTER → 2024-11-11 10:30 | Outpatient (BNVA) | payer MEDICARE, SELFPAY | PROVIDERS: PCP Internal Medicine; Visit Provider Internal Medicine | DX: E11.65 Type 2 diabetes mellitus with hyperglycemia (principal); I10 Essential (primary) hypertension | CPT/HCPCS: 96127; 99212 ==

== ENCOUNTER 2025-02-07 07:37 | Outpatient (REF) | payer MEDICARE, SELFPAY ==
--- OUTSIDE RECORDS SUMMARY | 2024-05-24 05:00 | XMS_ITS ---
Author Organization [facility] Address [address] [place] [address] Care Team Providers Care Vocational Nursing Instructor Name Role Phone Emma Farias Primary Care Provider Yeimi Klein [phone] Arndt Encounters Encounter Location Date Provider Diagnosis [address] [address] 05/24/2024 Yeimi Christopher Plan Of Treatment Next Appt Details Provider Name:Yeimi salazar, 04/11/2025 04:00:00 PM, [address] [place] [address], [phone], Provider Name:Yeimi salazar, 06/13/2025 11:00:00 AM, [address] [place] [address], [address], Progress Notes * Rosanna ROWLANDaDOB:1955 (69 yo F)Acc No.[id number]:05/24/2024 Progress Note Patient: Kelsey Cande THOMPSON Provider: Adriana Christopher DPM :1955 A ge:68 Y S ex:Female Date:05/24/2024 Address: [address] [id number] Pcp:Emma Farias Subjective: * Chief Complaints: * [address] Arndt. * Medical History: Objective: * Vitals: Assessment: Plan: * Treatment: * Images: * The named appointment provid er may or may not be the originator of this progress note, and it is not deemed complete until electronically signed by the appointment provider. Sign off status: Pending * Provider: Adriana Christopher DPM Date: 0 05/24/2024 Generated for Jace santo/Douglas/Cecil on: 04/10/2024 08:01 AM EST
--- OUTSIDE RECORDS SUMMARY | 2024-08-23 09:45 | XMS_ITS ---
Author Organization [facility] Address [address] [place] [address] Care Team Providers Care Enhanced Environmental Operator Name Role Phone Emma Farias Primary Care Provider Yeimi Klein [phone] Encounters Encounter Location Date Provider Diagnosis [address] [address] 08/23/2024 Yeimi Christopher Plan Of Treatment Next Appt Details Provider Name:Yeimi salazar, 04/11/2025 04:00:00 PM, [address] [place] [address], [address], Provider Name:Yeimi salazar, 06/13/2025 11:00:00 AM, [address] [place] [address], [address], Progress Notes * Reid ROWLANDB:1955 (69 yo F)Acc No.[id number]:08/23/2024 Progress Note Patient: Kelsey ANDRADESTARR Cande Provider: Adriana Christopher DPM :1955 A ge:68 Y S ex:Female Date:08/23/2024 Address: [address] [place] Pcp:Emma Farias Subjective: * Chief Complaints: * [...] 08/23/2024 Generated for Jace santo/Douglas/Cecil on: 1 04/10/2024 08:00 AM EST
--- OUTSIDE RECORDS SUMMARY | 2025-02-07 08:00 | XMS_ITS | Patient Health Record ---
Author Organization [facility] Address [address] [facility] [place] [address] Care Team Providers Care Electrical Logger Name Role Phone JarrettEmma fabian Primary Care Provider Yeimi Klein Unavailable [phone] Allergies Allergen (clinical drug ingredient) Drug/Non Drug [...] Duration) Notes Start Date End Date Status Cephalexin 500 MG 1 capsule Orally tony ry 12 hrs; Duration: 5 days Not-Taking metFORMIN HCl ER 500 MG TAKE 1 TABLET BY MOUTH EVERY DAY Oral; Duration: 30 1000mg Active Allergy Active Simvastatin 20 MG Oral; Duration: 90 Active Omeprazole 20 MG Oral; Duration: 90 Active Simvastatin 20 MG 1 tablet in [...] both feet; Duration: 30 days 01/18/2024 Active Metoprolol Succinate ER 25 MG Oral; Duration: 90 Not-Takin g Omeprazole 20 MG 1 capsule 30 minutes before morning meal Orally Once a day; Duration: 30 day(s) Active Metoprolol Succinate 25 MG 1 capsule Orally Once a day; Duration: 30 day(s) Not-Taking Hydrocortisone 2.5 % 1 application Externally Twice a day; Duration: 30 days Active Vitamin D Active Mounjaro 5 MG/0.5ML as directed Subcutaneous Active Ammonium Lactate 12 % 1 application Externally to affected areas of dry skin to feet except for between the toes Twice a day; Duration: 30 days Active Nystatin-Triamcinolone 222748-5.1 UNIT/GM 1 application Externally Twice a day to both feet; Duration: 30 days 01/18/2024 Active Immunizations Vaccine Route Administration Date Status Comme nts Influenza Unknown 01/02/2021 Administered Influenza Unknown 12/01/2022 Administered Influenza Unknown 12/01/2023 Administered Influenza Unknown 12/01/2024 Administered COVID-19 Moderna Vaccine Unknown 01/02/2021 Administered 1st 04/24/2020 2nd 05/22/2020 Social History Tobacco Use: Social History Observation Description Date Details (start date - stop date) Never Smoker NA - NA Alcohol Screen Question Answer Notes Did you have a drink contain ing alcohol in the past year? Yes How often did you have a dri nk containing alcohol in the past year? Monthly or less (1 point) Points 1 Interpretation Negative Tobacco use other than smoking: Question Answer Notes Are you an other tobacco user? No Tobacco Control (Standard) Question Answer Notes Tobacco use: Nonsmoker AUDIT-C (Standard) Question Answer Notes Did you have a drink containing alcohol in the p ast year? No Points 0 Interpretation Negative Problems Problem Type SNOMED Code ICD Code Onset Dates Problem Status W/U Status Risk Notes Problem Acquired hammer toe of right foot (2092552176795 105) Other hammer toe(s) (acquired), right foot (M20.41) Active confirmed Problem Acquired hammer toe of left foot (1161795527377 103) Other hammer toe(s) (acquired), left foot (M20.42) Active confirmed Problem Peripheral sensory neuropathy due to type 2 diabetes mellitus (5596662466519 05) Type 2 diabetes mellitus with polyneuropathy (E11.42) Active confirmed Vital Signs Blood pressure diastolic 73 mm Hg 01/24/2025 Height 5ft5in in 01/24/2025 Blood pressure systolic 127 mm Hg 01/24/2025 Weight 200 lbs 01/24/2025 BMI 33.28 kg/m2 01/24/2025 Encounters Encounter Location Date Provider Diagnosis [address] [address] 02/16/2024 Yeimi Greenwooda Tinea pedis of both feet B35.3 ; Xerosis of skin L85.3 and Type 2 diabetes mellitus with polyneuropathy E11.[address] [address] 06/14/2024 Yeimi Perica Tinea pedis of both feet B35.3 ; Type 2 diabetes mellitus with polyneuropathy E11.42 ; Other hammer toe(s) (acquired), right foot M20.41 and Other hammer toe(s) (acquired), left foot M20.[address] [address] 11/08/2024 Yeimi Perica Xerosis of skin L85. 3 ; Type 2 diabetes mellitus with polyneuropathy E11.42 and Tinea pedis of both feet B35.[address] [address] 01/24/2025 Yeimi Perica Xerosis of skin L85. 3 ; Type 2 diabetes mellitus with polyneuropathy E11.42 and Tinea pedis of both feet B35.[address] [address] 02/18/2024 Yeimi Perica [address] [address] 08/22/2024 Yeimi Christopher Assessments Encounter Date Diagnosis (ICD Code) Assessment Notes Treatment Notes Treatment Clinical Notes Section Notes 06/14/2024 Type 2 diabetes mellitus with polyneuropathy (ICD-10 - E11.42) 06/14/2024 Tinea pedis of both feet (ICD-10 - B35.3) 11/08/2024 Xerosis of skin (ICD-10 - L85.3) 11/08/2024 Type 2 diabetes mellitus with polyneuropathy (ICD-10 - E11.42) 02/16/2024 Tinea pedis of both feet (ICD-10 - B35.3) 01/24/2025 Xerosis of skin (ICD-10 - L85.3) 01/24/2025 Type 2 diabetes mellitus with polyneuropathy (ICD-10 - E11.42) 06/14/2024 Other hammer toe(s) (acquired), right foot (ICD-10 - M20.41) 11/08/2024 Tinea pedis of both feet (ICD-10 - B35.3) 02/16/2024 Xerosis of skin (ICD-10 - L85.3) 02/16/2024 Type 2 diabetes mellitus with polyneuropathy (ICD-10 - E11.42) 06/14/2024 Other hammer toe(s) (acquired), left foot (ICD-10 - M20.42) 01/24/2025 Tinea pedis of both feet (ICD-10 - B35.3) Plan Of Treatment Next Appt Details Provider Name:Yeimi salazar, 04/11/2025 04:00:00 PM, [address] [place] [address], [phone], Provider Name:Yeimi salazar, 06/13/2025 11:00:00 AM, [address] [place] [address], [phone], Insurance Providers Payer Name Payer Address Payer Phone Subscriber Number Group Number Insured Name Patient Relationship to Insured Coverage Start Date Coverage End Date Medicare National Govt Svcs Inc [address] [place] [address] [id number] Cande De La O Self - patient [facility] the [facility] [address] [place] [address] [phone] [id number] Cande De La O Self - patient is the insured Medical (General) History Medical History History ICD Code type II diabetes Headaches/Migraines High blood pressure Measles Mumps Chicken pox Cholesterol Surgical History Surgery Date(Month/Year) bladder sling wisdom teeth extraction tonsillectomy colonoscopy vein surgery, cauterize 07/2023 [facility]- brain bleed 06/2023 [facility] 10/2023 Hospitalization History Reason Date(Month/Year) child Diverticulitis 09/01/24
--- OUTSIDE RECORDS SUMMARY | 2025-02-07 08:01 | XMS_ITS | Patient Health Record ---
Author Organization [facility] Address [address] [place] [address] Care Team Providers Care Pie Bakery Laborer Name Role Phone Tosha (RETIRED) Nilson CHACON Primary Care Provide r Kevyn Harrison Jr Unavailable Allergies Allergen (clinical drug ingredient) Drug/Non Drug Allergy documented on EMR Reaction Allergy Type Onset Date Status levofloxacin Levofloxacin Unknown Drug Allergy A ctive Reason For Referral No Information Medications Medication SIG (Take, Route, Frequency, Duration) Notes Start Date End Date Status metFORMIN HCl ER 500 MG Tablet Extended Release 24 Hour 1 tablet with evening meal Orally Once a day; Duration: 30 day(s) Active Metoprolol Succinate 25 mg Active Simvastatin 20 MG Tablet 1 tablet in the evening Orally Once a day Active Vitamin D (Cholecalciferol) 25 MCG (1000 UT) Capsule 1 capsule Orally Once a day; Duration: 30 day(s) Active Omeprazole 20 MG Capsule Delayed Release 1 capsule Orally Once a day Active MiraLax (colon prep) 17 GM/SCOOP Powder mixed with Gatorade or Crystal Light Orally begin at 5:00 p.m. the day before the procedure; Duration: 1 day 08/05/2021 Active Immunizations Vaccine Route Administration Date Status Comme nts Influenza Unknown 01/16/2021 Administered Social History Social History Additional Details Category Social Info Options Details Miscellaneous: Marital status: Occupation: Payroll supervis or, retired Problems Problem Type SNOMED Code ICD Code Onset Dates Problem Status W/U Status Risk Notes Problem Colon cancer screening (190630564) Colon cancer screening (Z12.11) Active confirmed Problem Pre-procedure evaluation check (970980741) Encounter for other preprocedural examination (Z01.818) Active confirmed Problem Long-term current use of drug therapy (729086660) termite exterminator helper (current) use of oral hypoglycemic drugs (Z79.84) Active confirmed Problem History of polyp of colon (situation) (128244975) History of colonic polyps (Z86.010) Active confirmed Plan Of Treatment Future Test Test Name Order Date COLONOSCOPY 03/05/2016 COLONOSCOPY 08/05/2021 Insurance Providers Payer Name Payer Address Payer Phone Subscriber Number Group Number Insured Name Patient Relationship to Insured Coverage Start Date Coverage End Date MED[place]ARE OF [place] [address] [place] [phone] [id number] STEWART FISHER Self - patient is the insured MEDEX ATTN CLAIMS [address] [place] [address] [phone] [id number] STEWART FISHER Self - patient is the insured Medical (General) History Medical History History ICD Code Colonoscopy 05/30/16, tubular adenoma, fi ve-year followup 05/21 back problems gastroesophageal reflux disease hypertension elevated cholesterol elevated blood sugar Surgical History Surgery Date(Month/Year) bladder suspension
[2025-02-07 10:13] LABS: MANUAL DIFF FLAG NO
[2025-02-07 10:43] LABS: Alanine Aminotransferase 20 U/L (0-31); Albumin Level 4.2 g/dL (3.5-5.0); Alkaline Phosphatase 73 U/L (39-117); Anion Gap 12 (12-20); Aspartate Amino Transferase 21 U/L (5-31); Blood Urea Nitrogen 13 mg/dL (9-16); Calcium 9.6 mg/dL (8.4-10.2); Carbon Dioxide 29 mmol/L (22-29); Chloride 102 mmol/L (96-108); Cholesterol 113 mg/dL (<200); Estimated Glomerular Filt Rate > 60; HDL Cholesterol 33 mg/dL (>40); Potassium 4.3 mmol/L (3.3-5.1); Sodium 139 mmol/L (135-145); Total Protein 7.6 g/dL (6.5-8.0); Triglycerides 95 mg/dL (<150)
[2025-02-07 10:50] LABS: Hematocrit 45.5 % (37.0-47.0); Hemoglobin 14.7 g/dl (12.0-16.0); Imm Gran Abs Auto 0.08 X10*3/uL (0.00-0.03); Imm Gran Pct Auto 0.5 % (0.0-0.4); Lymphocytes Absolute Auto 3.4 X10*3/uL (1.2-4.9); Mean Corpuscular HGB Conc 32.3 g/dl (31.0-35.0); Mean Corpuscular Hemoglobin 28.5 pg (27.0-33.0); Mean Corpuscular Volume 88.2 fL (80.0-98.0); NRBC Abs Auto 0.000 X10*3/uL (0.0-0.012); NRBC Pct Auto 0.0 /100WBC (0.0-0.2); Platelet Count 320 X10*3/uL (160-400); Red Blood Count 5.16 X10*6/uL (4.20-5.50); White Blood Count 14.9 X10*3/uL (4.8-10.8)
== END 2025-02-07 07:38 | disposition home or self-care (01) ==
LOC: HO.10HDL 07:37
PROVIDERS: Visit Provider Internal Medicine
DX: I10 Essential (primary) hypertension (principal); E11.65 Type 2 diabetes mellitus with hyperglycemia; D72.829 Elevated white blood cell count, unspecified
CPT/HCPCS: 80053; 80061; 82043; 82570; 85025

== ENCOUNTER 2025-02-14 11:25 | Outpatient (AMB) | payer MEDICARE, SELFPAY ==
--- OUTSIDE RECORDS SUMMARY | 2024-05-24 05:00 | XMS_ITS ---
Author Organization [facility] Address [address] [place] [address] Care Team Providers Care Wood Lathe Operator Name Role Phone Emma Farias Primary Care Provider Yeimi Klein [phone] Arndt Encounters Encounter Location Date Provider Diagnosis [address] [address] 05/24/2024 Yeimi Christopher Plan Of Treatment Next Appt Details Provider Name:Yeimi salazar, 04/11/2025 04:00:00 PM, [address] [place] [address], [phone], Provider Name:Yeimi salazar, 06/13/2025 11:00:00 AM, [address] [place] [address], [address], Progress Notes * Rosanna ROWLANDaDOB:1955 (69 yo F)Acc No.[id number]:05/24/2024 Progress Note Patient: Kelsey Cande THOMPSON Provider: Adriana Christopher DPM :1955 A ge:68 Y S ex:Female Date:05/24/2024 Address: [address] [id number] Pcp:Emma Farias Subjective: * Chief Complaints: * [...] 0 05/24/2024 Generated for Jace santo/Douglas/Cecil on: 1 04/17/2024 03:07 PM EST
--- OUTSIDE RECORDS SUMMARY | 2024-08-23 09:45 | XMS_ITS ---
Author Organization [facility] Address [address] [place] [address] Care Team Providers Care Trimmer Climber Name Role Phone Emma Farias Primary Care Provider Yeimi Klein [phone] Encounters Encounter Location Date Provider Diagnosis [address] [address] 08/23/2024 Yeimi Christopher Plan Of Treatment Next Appt Details Provider Name:Yeimi salazar, 04/11/2025 04:00:00 PM, [address] [place] [address], [address], Provider Name:Yeimi salazar, 06/13/2025 11:00:00 AM, [address] [place] [address], [address], Progress Notes * Reid ROWLANDB:1955 (69 yo F)Acc No.[id number]:08/23/2024 Progress Note Patient: Kelsey ANDRADESTARR Cande Provider: Adriana Christopher DPM :1955 A ge:68 Y S ex:Female Date:08/23/2024 Address: [address] [place] Pcp:Emma Farias Subjective: * Chief Complaints: * * Medical History: Objective: * Vitals: Assessment: Plan: * Treatment: * Images: * The named appointment provid er may or may not be the originator of this progress note, and it is not deemed complete until electronically signed by the appointment provider. Sign off status: Pending * Provider: Adriana Christopher DPM Date: 0 08/23/2024 Generated for Jace santo/Douglas/Cecil on: 1 04/17/2024 03:06 PM EST
--- NOTE | 2025-02-14 11:39 | A.OFFPC_ITS ---
Vital Signs 02/14/25 11:43 Height 5 ft 5 in Weight 200 lb 6 oz BMI 33.3 BP 108/58 L Blood Pressure Location Rt brachial Respiration 15 Pulse 60 Pulse Source Pulse Oximeter Temp 97.6 F Temp Source Temporal Artery Scan Pulse Oximetry (%) 97 Oxygen Delivery Method Room Air Intake Visit Reasons: Follow up Intake Note: Cande presents in the office today for a follow up. Senior Behavioral Scientist Required: No Is last menstrual period known: No Post menopausal: Yes Patient : No Allergies levofloxacin (LEVOFLOXACIN) Allergy (Severe, Verified 02/14/25 11:42) DIFFICULTY BREATHING Tobacco use date assessed: 02/14/25 Fall risk assessment: No Falls in past year Last assessed Fall Risk: 02/14/25 Dental Screening Dental Screen Date: 02/14/25 Did you have a dental visit in the last 12 months?: Yes Did you have a dental problem in the last 6 months where you did not have access to dental care?: No Was dental information given to patient?: Patient has dentist HPI HPI Comments History of Present Illness Details The patient is a 68 year old female with a past medical history of subdural, htn, copd, MDD, asthma presenting for follow up. DM-A1C 5.5% from 6.1 from 9.9%. On metformin 1000mg daily, mounjaro 5mg weekly. Doing excellent. Higher dose of metformin was bothering her stomach. She saw Jessica hamm environmental educator. Doing well with diet. Eye exam is UTD. Sees podiatry CV: on lisinopril 2.5mg, simvastatin. BP soft. Denies chest pain, exertional dyspnea She has chronically elevated wbc. Has has reassuring work up with heme/onc Chronic cough:On xyzal Mammo 05/2024 Colon 10/02/2021 Pick Pulling Machine Tender:Johan STILES CONSTITUTIONAL: Denies weight loss, fever and chills. HEENT: Denies changes in vision and hearing. RESPIRATORY: Denies SOB and cough. CV: Denies palpitations and CP GI: Denies abdominal pain, nausea, vomiting and diarrhea. : Denies dysuria and urinary frequency. MSK: Denies new myalgia and joint pain. SKIN: Denies rash and pruritus. NEUROLOGICAL: Denies headache PSYCHIATRIC: Denies recent changes in mood. PHYSICAL EXAM: GENERAL: Alert and oriented x 3. NAD EYES: EOMI. Anicteric. HENT: Moist mucous membranes. No scleral icterus. No cervical lymphadenopathy. LUNGS: Clear to auscultation bilaterally. CARDIOVASCULAR: Regular rate and rhythm. No murmur. No JVD. ABDOMEN: Soft, non-tender +bs EXTREMITIES: No edema. Non-tender. SKIN: No rashes or lesions. Warm. NEUROLOGIC: No focal neurological deficits. CN II-XII grossly intact PSYCHIATRIC: Cooperative. Appropriate mood and affect [facility] Medical History Blood cholesterol increased compared with prior measurement HTN (hypertension) HTN (hypertension) Diabetes Surgical History Hx of dilation and curettage (10/2023) Hx of subdural hematoma (07/2023) Hx of wisdom tooth extraction History of pubovaginal sling Hx of colonoscopy Family History Mother No problems noted. Father No problems noted. Social History Housing: House Alcohol intake: current Alcohol intake frequency: does not drink Patient Tobacco Use Status: Never used Tobacco e-Cigarette/Vaping Use: Never Used Second Hand Smoke Exposure: No service: No Current occupational status: retired Cognitive needs: No Hearing needs: No Vision needs: Yes (rx glasses) Questionnaire Thrive Questionnaire Date Thrive assessed: 11/04/24 I am a: Patient What is your living situation today?: I have a steady place to live Within the past 12 months, did the food you bought not last and you didn't have the money to get more?: Never true Within the past 12 months, did you worry whether your food would run out before you got money to buy more?: Never true Do you have trouble paying for medicines?: No Do you have trouble getting transportation to medical appointments?: No Do you have trouble paying your heating and electricity bill?: No Do you have trouble taking care of your child, family member or friend?: No Do you have trouble with day-to-day activities such as bathing, preparing meals, shopping, managing finances, etc.?: No Are you currently unemployed and looking for a job?: No Are you interested in more education?: No Please select the resources that you would like help with: None Currently or been in a relationship where the following occur: No concerns reported THRIVE Score: 0 MADY-7 AMB Questionnaire MADY-7 Date MADY - 7 assessed: 08/04/24 Source: Developed by Drs. Hernesto Lemon, Dodie Torres, Casimiro Hector and colleagues, with an educational cece from [employer]. Physical exam (Primary Care) Vital Signs: Last Vital Signs Temp 97.6 F 02/14/25 11:43 Pulse 60 02/14/25 11:43 Resp 15 02/14/25 11:43 BP 108/58 L 02/14/25 11:43 Pulse Ox 97 02/14/25 11:43 Oxygen Delivery Method Room Air 02/14/25 11:43 BMI result Body Mass Index 33.3 Tobacco/Smoking Status: Tobacco use Status Tobacco use date assessed 02/14/25 02/14/25 11:44 Patient Tobacco Use Status Never used Tobacco 02/14/25 11:42 e-Cigarette/Vaping Use Never Used 02/14/25 11:42 Thrive Assessment: Date of Thrive Assessment Date Thrive assessed 11/04/24 02/14/25 11:41 Currently or been in a relationship where the following occur: No concerns reported Results AMB Hemoglobin A1c AMB Hemoglobin A1c 5.5 % Last Edit by Anamaria Hoover CMA on 02/14/25 12:07 Results Reviewed Results Reviewed: Laboratory Last Values Hgb A1c (Clinic) 5.5 % (4.0-6.0) 02/14/25 12:06 Coding Level of Care Code Est Pt Level 4 (99026) Diagnoses Type 2 diabetes mellitus with hyperglycemia, without long-term current use of insulin E11.65 Diabetes mellitus complication status: with hyperglycemia Diabetes mellitus alf insulin use: without manager long term care use Diabetes mellitus type: type 2 Assessment & Plan Assessment & Plan (1) Diabetes: Code(s): E11.9 - Type 2 diabetes mellitus without complications Category: Medical Qualifiers: Diabetes mellitus complication status: with hyperglycemia Diabetes mellitus alf insulin use: without manager long term care use Diabetes mellitus type: type 2 Qualified Code(s): E11.65 - Type 2 diabetes mellitus with hyperglycemia Plan 69 year old female for follow up Diabetes is well controlled on current medication. Increase mounjaro to 7.5mg. Decrease metformin GERD stable on omeprazole WBC-monitor. Has seen hematology Follow up in 3 months or sooner as needed Orders: Orders AMB Hemoglobin A1c 02/14/25 E11.65 - Type 2 diabetes mellitus with hyperglycemia Hemoglobin A1c 3 Months E11.65 - Type 2 diabetes mellitus with hyperglycemia, I10 - Essential (primary) hypertension Complete Blood Count Auto Diff 02/14/25 D72.829 - Elevated white blood cell count, unspecified Comprehensive Met. Panel 3 Months E11.65 - Type 2 diabetes mellitus with hyperglycemia, I10 - Essential (primary) hypertension Medications: New Mounjaro (tirzepatide) 7.5 mg (0.5 mL) subcut QWEEK 6 mL 3RF NS E11.65 - Type 2 diabetes mellitus with hyperglycemia Changed From metformin ER 1,000 mg (2 x 500 mg) PO DAILY 180 tabs 3RF To metformin ER 500 mg PO DAILY 90 tabs 3RF Discontinued Mounjaro (tirzepatide) Discontinued Reason: Doctor's Order 5 mg (0.5 mL) subcut QWEEK 6 mL 3RF NS E11.65 - Type 2 diabetes mellitus with hyperglycemia, I10 - Essential (primary) hypertension
[2025-02-14 11:43] VITALS: BP 108/58; PULSE 60; RESP 15; TEMP 36.4; O2SAT 97; BMI 33.3
--- OUTSIDE RECORDS SUMMARY | 2025-02-14 15:06 | XMS_ITS | Patient Health Record ---
[facility] Address [address] [place] [address] Care Team Providers Care Business Development Sales Executive Name Role Phone JarrettEmma fabian Primary Care Provider Yeimi Klein Unavailable [phone] Allergies Allergen (clinical drug ingredient) Drug/Non Drug [...] a day; Duration: 30 days Active Nystatin-Triamcinolone 567900-4.1 UNIT/GM 1 application Externally Twice a day [...] Problem Acquired hammer toe of right foot (2899650097873 105) Other hammer toe(s) (acquired), right foot (M20.41) Active confirmed Problem Acquired hammer toe of left foot (9653392981340 103) Other hammer toe(s) (acquired), left foot (M20.42) Active confirmed Problem Peripheral sensory neuropathy due to type 2 diabetes mellitus (4780659295630 05) Type 2 diabetes mellitus with polyneuropathy (E11.42) Active confirmed Vital Signs Blood pressure diastolic 73 mm Hg 01/24/2025 Height 5ft5in in 01/24/2025 Blood pressure systolic 127 mm Hg 01/24/2025 Weight 200 lbs 01/24/2025 BMI 33.28 kg/m2 01/24/2025 Encounters Encounter Location Date Provider Diagnosis [address] [address] 02/16/2024 Yeimi Greenwooda Tinea pedis of both feet B35.3 ; Xerosis of skin L85.3 and Type 2 diabetes mellitus with polyneuropathy E11.[address] [address] 06/14/2024 Yeimi Perica Tinea pedis of both feet B35.3 ; Type 2 diabetes mellitus with polyneuropathy E11.42 ; Other hammer toe(s) (acquired), right foot M20.41 and Other hammer toe(s) (acquired), left foot M20.[address] [address] 11/08/2024 Yeimi Perica Xerosis of skin L85. 3 ; Type 2 diabetes mellitus with polyneuropathy E11.42 and Tinea pedis of both feet B35.[address] [address] 01/24/2025 Yeimi Perica Xerosis of skin L85. 3 ; Type 2 diabetes mellitus with polyneuropathy E11.42 and Tinea pedis of both feet B35.[address] [address] 02/18/2024 Yeimi Perica [address] [address] 08/22/2024 Yeimi Christopher Assessments Encounter Date Diagnosis [...] Details Provider Name:Yeimi salazar, 04/11/2025 04:00:00 PM, [address] [place] [address], [phone], Provider Name:Yeimi salazar, 06/13/2025 11:00:00 AM, [address] [place] [address], [phone], Insurance Providers Payer Name Payer Address Payer Phone Subscriber Number Group Number Insured Name Patient Relationship to Insured Coverage Start Date Coverage End Date Medicare National [employer] [address] [place] [address] [id number] Cande De La O Self - [facility] the [facility] [address] [place] [address] [id number] Cande De La O Self - patient [...]
--- OUTSIDE RECORDS SUMMARY | 2025-02-14 15:07 | XMS_ITS | Patient Health Record ---
Author Organization [facility] Address [address] [place] [address] Care Team Providers Care Printed Circuit Boards Beveler Name Role Phone Tosha (RETIRED) Nilson CHACON Primary Care Provide r Kevyn Harrison Jr Unavailable [phone] Allergies Allergen (clinical drug ingredient) Drug/Non Drug [...] Status Risk Notes Problem Colon cancer screening (990685210) Colon cancer screening (Z12.11) Active confirmed Problem Pre-procedure evaluation check (819567340) Encounter for other preprocedural examination (Z01.818) Active confirmed Problem Long-term current use of drug therapy (909267508) skilled nursing (current) use of oral hypoglycemic drugs (Z79.84) Active confirmed Problem History of polyp of colon (situation) (786726995) History of colonic polyps (Z86.010) Active confirmed Plan Of Treatment Future Test Test Name Order Date COLONOSCOPY 03/05/2016 COLONOSCOPY 08/05/2021 Insurance Providers Payer Name Payer Address Payer Phone Subscriber Number Group Number Insured Name Patient Relationship to Insured Coverage Start Date Coverage End Date MEDICARE OF [place] [address] [place] [phone] [id number] STEWART FISHER Self - patient is the insured [employer] ATT[employer] CLAIMS [address] [place] [address] [id number] STEWART FISHER Self - patient is the insured Medical (General) History Medical History History ICD Code Colonoscopy 05/30/16, tubular adenoma, fi ve-year followup 05/21 back problems gastroesophageal reflux disease hypertension elevated cholesterol elevated blood sugar Surgical History Surgery Date(Month/Year) bladder suspension
== END 2025-02-14 12:13 | disposition home or self-care (01) ==
LOC: HO.HMCFM 11:26
PROVIDERS: PCP Internal Medicine; Visit Provider Internal Medicine
DX: E11.65 Type 2 diabetes mellitus with hyperglycemia (principal)

== ENCOUNTER → 2025-02-14 11:25 | Outpatient (BNVA) | payer MEDICARE, SELFPAY | PROVIDERS: PCP Internal Medicine; Visit Provider Internal Medicine | DX: E11.65 Type 2 diabetes mellitus with hyperglycemia (principal); I10 Essential (primary) hypertension; D72.829 Elevated white blood cell count, unspecified; K21.9 Gastro-esophageal reflux disease without esophagitis; R05.3 Chronic cough; Z79.85 Long-term (current) use of injectable non-insulin antidiabetic drugs; Z79.899 Other long term (current) drug therapy | CPT/HCPCS: 83036; 99212 ==